=== PATIENT | male | born 1985 | race Caucasian/White ===

== ENCOUNTER 2019-06-21 06:07 | Emergency (ER) | payer OTHER, MEDICAID, SELFPAY ==
[2019-06-21 06:15] VITALS: BP 140/82; PULSE 95; RESP 16; TEMP 36.6; O2SAT 98; BMI 37.6
--- NOTE | 2019-06-21 06:35 | ED_ITS ---
HPI - Extremity Injury (Lower) General Chief Complaint: Extremity Injury, Lower Stated Complaint: ear inf cut left leg left ankle Time Seen by Provider: 06/21/19 06:10 Source: patient Mode of arrival: Ambulatory Limitations: no limitations History of Present Illness HPI Narrative: 34-year-old smoker with former substance abuse history presents with his girlfriend with a chief complaint of some pain and swelling of a laceration on his left anterior garcia. He was seen and evaluated at another facility about 1 week ago and had a deep laceration which was very appropriately cleaned and had a multilayer closure, patient was also placed on Keflex which he has been taking. His initial injury was using a weed whacker which jumped up and lacerated his garcia in a deep, irregular wound. He states that a few days ago started becoming a bit red and puffy and draining some clear yellowish fluid. He denies any systemic symptoms such as fever, chills nor nausea or vomiting. Additionally he states that he feels something bouncing around his right ear which is irritating him. He denies any drainage MD complaint: leg injury Onset (ago): day(s) Type of Injury: laceration Place: street/outdoors Severity: moderate Relieving factors: rest Exacerbating factors: movement and palpation Context: direct blow Other symptoms: none Related Data Previous Rx's Medication Instructions Recorded doxycycline hyclate 100 mg PO BID #20 tab 06/21/19 ondansetron 4 mg PO TID-QID PRN #10 tab 06/21/19 Review of Systems Constitutional Constitutional: Denies chills, Denies fatigue, Denies fever(s), Denies frequent falls, Denies lethargy and Denies weakness Eyes Eyes: Denies change in vision, Denies eye discharge, Denies irritation and Denies loss of vision ENT Ears, Nose, Mouth, and Throat: Denies change in voice, Denies dizziness, Denies neck pain, Denies sore throat and Denies throat swelling Comments: FB sensation in R EAC Cardiovascular Cardiovascular: Denies chest pain, Denies irregular heart rhythm, Denies lightheadedness, Denies palpitations, Denies dyspnea, Denies dyspnea on exertion and Denies orthopnea Respiratory Respiratory: Denies cough, Denies dyspnea, Denies dyspnea on exertion and Denies wheezing Gastrointestinal Gastrointestinal: Denies abdominal pain, Denies change in bowel habits, Denies diarrhea, Denies nausea and Denies vomiting Genitourinary Genitourinary: Denies hematuria, Denies flank pain, Denies urinary incontinence and Denies urinary urgency Musculoskeletal Musculoskeletal: Denies back pain, Denies muscle weakness, Denies neck pain, Denies numbness and Denies tingling Integumentary/Breasts Skin/Breast: Denies pruritus, Denies erythema, Denies rash and Denies wounds Neurologic Neurologic: Denies behavioral changes, Denies confusion, Denies dizziness, Denies frequent falls, Denies loss of vision, Denies numbness, Denies tingling and Denies weakness Psychiatric Psychiatric: Denies anxiety, Denies behavioral changes, Denies confusion, Denies depression, Denies homicidal ideation and Denies suicidal ideation Endocrine Endocrine: Denies fatigue, Denies flushing and Denies palpitations Hematologic/Lymphatic Hematologic/Lymphatic: Denies easy bruising Allergic/Immunologic Allergic/Immunologic: Denies urticaria, Denies throat swelling and Denies wheezing Patient History Social History Smoking Status: Current every day smoker Smoking Status: Current every day smoker Substance Use Type: does not use Exam Narrative Exam Narrative: GENERAL: [34] year old patient appears stated age. Well- nourished, well-developed patient, in mild distress. HEAD: Atraumatic. Normocephalic. EYES: Pupils equal round and reactive. Extraocular motions intact. No scleral icterus. No injection or drainage. ENT: Nose without bleeding, purulent drainage. Throat without erythema, tonsillar hypertrophy or exudate. Airway patent. Very small rock in right external auditory canal, no erythema, laceration. TM is intact without bulging, erythema or loss of landmarks NECK: Trachea midline. Non tender CARDIOVASCULAR: Regular rate and rhythm without murmurs, gallops, or rubs. RESPIRATORY: Clear to auscultation. Breath sounds equal bilaterally. No wheezes, rales, or rhonchi. GASTROINTESTINAL: Abdomen soft, non-tender, nondistended. EXTREMITIES: No edema or joint tenderness. BACK: Nontender without deformity or crepitance. No flank tenderness. NEURO: AOx3. SKIN: Laceration on anterior left garcia shows a small area of dehiscence with some drainage and mild surrounding erythema. A wound culture is obtained and sent. Otherwise no rash or erythema of visible areas Course Orders Ordered: ED Orders 06/21/19 06:30 Wound Culture and Gram Stain Stat Discharge Plan Departure Patient Disposition: Home Clinical Impression: Infected laceration of skin Instructions: DI for Wound Infection Activity Restrictions/Additional Instructions: *You have been diagnosed with [infected laceration of left lower leg. Small foreign body removed from right external auditory canal] *What to do: *Take medications as directed: You may consider some [id number] probiotics *Follow up with your primary care provider in 2-3 days, call for an appointment. Let them know you were seen in the Emergency Department and that we ask that you be seen in follow up *Return to ER if you should have any new, worsening or concerning symptoms Prescriptions: New doxycycline hyclate 100 mg tablet 100 mg PO BID Qty: 20 RF: 0 ondansetron 4 mg tablet,disintegrating 4 mg PO TID-QID PRN (Reason: nausea and vomiting) Qty: 10 RF: 0
[2019-06-21 07:03] VITALS: BP 152/83; PULSE 77; RESP 16; O2SAT 96
== END 2019-06-21 07:04 | disposition home or self-care (01) ==
PROVIDERS: Emergency Provider Emergency Medicine; PCP Physician Assistant Medical
DX: L08.9 Local infection of the skin and subcutaneous tissue, unspecified (principal)
CPT/HCPCS: 87070; 87077; 87147; 87185; 87186; 87205; 99281; 99282

== ENCOUNTER 2019-06-22 15:48 | Emergency (ER) | payer OTHER, SELFPAY ==
[2019-06-22 15:59] VITALS: BP 149/90; PULSE 90; RESP 20; TEMP 36.4; O2SAT 98; BMI 38.3
--- NOTE | 2019-06-22 16:01 | PC.NURSE ---
pt has laceration from a saw blade he had on a weed eater. pt had stitches placed at [facility] on 06/10/19. seen here a few days ago for a few stitches that came out. back today due to pain through the night. site does not appear to be healing well. redness and swelling noted, small amount of drainage from incision site, painful to touch. pt reports he did take a course of antibiotics.
[2019-06-22 17:06] LABS: Add Manual Diff / Slide Review NO; Basophils Absolute Auto 100 /uL (0-100); Basophils Percent Auto 0.9 % (0-2); Eosinophils Absolute Auto 300 /uL (0-450); Eosinophils Percent Auto 2.5 % (2-4); Hematocrit 40.5 % (41-53); Hemoglobin 14.2 g/dL (13.5-17.5); Lymphocytes Absolute Auto 2300 /uL (1100-4500); Lymphocytes Percent Auto 21.9 % (25-40); Mean Corpuscular HGB Conc 35.1 % (30-36); Mean Corpuscular Hemoglobin 31.1 PG (26-34); Mean Corpuscular Volume 88.6 fL (80-100); Monocytes Absolute Auto 600 /uL (0-900); Monocytes Percent Auto 6.1 % (3-14); Neutrophils Absolute Auto 7300 /uL (1500-7000); Neutrophils Percent Auto 68.6 % (50-75); Platelet Count 311 X10^3/uL (150-400); Red Blood Cell Count 4.57 X10^6/uL (4.5-5.9); White Blood Cell Count 10.7 X10^3/uL (4.5-11.0)
[2019-06-22 17:18] LABS: Lactate (Lactic Acid) 1.3 mmol/L (0.7-2.1)
[2019-06-22 17:21] LABS: Alanine Aminotransferase 40 IU/L (<50); Albumin 4.5 g/dL (3.5-5.0); Albumin Globulin Ratio 1.3 (1.0-2.8); Alkaline Phosphatase 111 U/L (38-126); Aspartate Aminotransferase 33 IU/L (17-59); BUN Creatinine Ratio 17.4 (6-22); Bilirubin Total 0.4 mg/dL (0.2-1.3); Blood Urea Nitrogen 15 mg/dL (9-20); C-Reactive Protein Quant 3.1 mg/dL (<1.0); Calcium 9.1 mg/dL (8.4-10.2); Carbon Dioxide 24 mmol/L (22-32); Chloride 105 mmol/L (98-107); Estimated Glomerular Filt Rate > 60.0 mL/min (>60); Globulin 3.4 g/dL (1.7-4.1); Glucose 126 mg/dL (70-100); HEMOLYSIS 25 (0-50); Potassium 4.1 mmol/L (3.4-5.1); Sodium 139 mmol/L (137-145); Total Protein 7.9 g/dL (6.3-8.2)
[2019-06-22] MEDS: MORPHINE 4 MG/ML INJ IV (17:26)
[2019-06-22] MEDS: ONDANSETRON 4 MG/2 ML INJ IV ×2 (17:26→18:27)
[2019-06-22 17:33] LABS: Procalcitonin < 0.05 ng/mL (<0.5)
[2019-06-22 17:49] LABS: Erythrocyte Sedimentation Rate 27 MM/HR (0-15)
[2019-06-22] MEDS: KETOROLAC 60 MG/2 ML VIAL 30 MG IV (18:27)
[2019-06-22 19:21] VITALS: BP 129/78; PULSE 65; RESP 17; O2SAT 98
--- NOTE | 2019-06-22 20:21 | DI.RAD.S_ITS ---
PROCEDURE: XR TIBIA FIBULA RT 2V INDICATIONS: mid garcia injury 06/13, R/o fracture or osteomyelitis TECHNIQUE: 2 views of the tibia and fibula were acquired. COMPARISON: [facility], , XR FOOT 3+ VIEWS LEFT, 01/01/2019, 14:27. FINDINGS: Bones: Comminuted fracture to the anterior mid tibial shaft deep to the skin laceration. No dislocations. No suspicious bony lesions. Distal fibular shaft ORIF. No periscrew lucency or plate lift off. Spur at the inferior medial tibial plateau. Soft tissues: No suspicious soft tissue calcifications or masses. No obvious radiopaque foreign body. IMPRESSION: Comminuted fracture of the anterior mid tibial shaft deep to the skin laceration. No radiopaque foreign body identified. Dictated by: Jose Alfredo Scanlon M.D. on 06/22/2019 at 20:45 Approved by: Jose Alfredo Scanlon M.D. on 06/22/2019 at 20:47
--- NOTE | 2019-06-22 21:10 | ED.SKABFB ---
HPI - Skin/Abscess/Foreign Bdy <JIGNA Manuel - Last Filed: 06/22/19 23:34> General Chief complaint: Skin/Abscess/Foreign Body Stated complaint: left leg injury, ripped stitches out, wound drains Time Seen by Provider: 06/22/19 15:54 Source: patient Mode of arrival: Ambulatory Limitations: no limitations History of Present Illness HPI narrative: This is a 34-year-old male, former smoker and substance abuse history, presents to ED with significant other increasing pain and swelling of a laceration on his left anterior garcia. Reports he had a deep laceration from a tree branch on 06/14/2019 (T-8 days) when he was trimmimg yard with an weed ankur with a blade attachment and tree branch jumped up and lacerated his leg. He was evaluated at [facility] ER and treated with irrigation and had multilayer closure. 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 Patient reports pain and swelling is slightly increased with improving redness surrounding the laceration. Patient reports he has nausea, feeling dizzy, and having night sweats. Patient denies chills or fevers. Patient noticed light yellowish drainage from affected site and sutures are pulling the skin due to swelling. Patient has not been changing the dressing and taking care wound at home due to pain according to his significant other. Patient reports pain is 8/10 as stabbing, aching, pulsating. Patient also complains of right flank pain and stating my kidney is hurting. Patient has an appointment with his primary care physician Dr. Rodríguez next a couple of days. Related Data Home Medications Medication Instructions Recorded Confirmed bupropion HCl mg PO 06/22/19 diclofenac sodium PO 06/22/19 trazodone 06/22/19 Previous Rx's Medication Instructions Recorded doxycycline hyclate 100 mg PO BID #20 tab 06/21/19 ondansetron 4 mg PO TID-QID PRN #10 tab 06/21/19 Allergies Allergy/AdvReac Type Severity Reaction Status Date / Time No Known Drug Allergies Allergy Verified 06/22/19 17:26 Review of Systems <JIGNA Manuel - Last Filed: 06/22/19 23:34> Review of Systems Narrative: General: Denies fever, chills, fatigue, malaise, (+) sweats. HEENT: Denies sinus pain, ear pain, sore throat, difficulty swallowing, (+) dizziness. Respiratory: Denies dyspnea, cough, wheezing, hemoptysis, sputum. Cardiovascular: Denies chest pain, palpitations, orthopnea, edema. Gastrointestinal: Denies (+) nausea, vomiting, abdominal pain, diarrhea, constipation, melena. : Denies dysuria, frequency, incontinence, hematuria, urinary retention. Musculoskeletal: See HPI Skin: see HPI Neurologic: Denies weakness, headache, numbness, change in speech, confusion, seizures, incoordination. Psychiatric: No concerning psychosocial issues. 12-point review of systems is negative except for those stated above. Patient History <JIGNA Manuel - Last Filed: 06/22/19 23:34> Medical History Arthritis (Acute) Leg fracture, left (Acute) Social History Smoking Status: Current every day smoker Smoking Status: Current every day smoker Substance Use Type: does not use Exam <JIGNA Manuel - Last Filed: 06/22/19 23:34> Narrative Exam Narrative: General appearance: well developed, well nourished, in no acute distress. Head: normocephalic, atraumatic, no scalp lesions, non-tender. ENT: Hearing grossly intact. Nose without bleeding, purulent discharge. Mucous membrane moist, no mucosal lesion. Throat without erythema, tonsillar hypertrophy or exudate. Uvula in midline, airway patent. Neck/Thyroid: neck supple, full range of motion, no visible masses or meningeal signs. No JVD, non-tender without lymphadenopathy. Skin: Laceration on the anterior left garcia shows small light yellow prulent discharge and mild surrounding erythema, warmth, edema with small area with fluctuance. Very Tender to gentle palpation. Heart: no clubbing, no cyanosis, no edema. S1 and S2 normal. RRR w/o murmurs, clicks, or bruits. Lungs: Breathing even and unlabored. No stridor. No accessory muscles used. Able to speak in full sentences. Chest: normal shape and expansion. Abdomen: non-obese, non-distended. Neurologic: alert and oriented. Cognitive exam, OFFAL ICER POULTRY and PNS grossly intact on informal exam. Psych: good eye contact, normal affect. Initial Vital Signs Initial Vital Signs: Vital Signs Temperature 97.5 F L 06/22/19 15:59 Pulse Rate 90 06/22/19 15:59 Respiratory Rate 06/22/19 15:59 Blood Pressure 149/90 H 06/22/19 15:59 Pulse Oximetry 98 06/22/19 15:59 <Humberto Harris DO - Last Filed: 06/23/19 04:42> Initial Vital Signs Initial Vital Signs: Vital Signs Temperature 97.5 F L 06/22/19 15:59 Pulse Rate 90 06/22/19 15:59 Respiratory Rate 06/22/19 15:59 Blood Pressure 149/90 H 06/22/19 15:59 Pulse Oximetry 98 06/22/19 15:59 Scores <JIGNA Manuel - Last Filed: 06/22/19 23:34> ABCD2 Citation: Not meeting SIRCS criteria. Course <JIGNA Manuel - Last Filed: 06/22/19 23:34> Orders Ordered: ED Orders 06/22/19 20:21 XR tibia fibula LT 2V Stat Discontinued Medications Bacitracin (Bacitracin) 1 applic TOP NOW ONE Stop: 06/22/19 21:12 Ketorolac Tromethamine (Toradol) 30 mg IV NOW ONE Stop: 06/22/19 18:19 Last Admin: 06/22/19 18:27 Dose: 30 mg Documented by: SHAUN Morphine Sulfate (Morphine) 4 mg IV NOW ONE Stop: 06/22/19 16:49 Last Admin: 06/22/19 17:26 Dose: 4 mg Documented by: SHAUN Ondansetron HCl (Zofran) 4 mg IV NOW ONE Stop: 06/22/19 16:49 Last Admin: 06/22/19 17:26 Dose: 4 mg Documented by: SHAUN Ondansetron HCl (Zofran) 4 mg IV NOW ONE Stop: 06/22/19 18:19 Last Admin: 06/22/19 18:27 Dose: 4 mg Documented by: SCANAPO Vital Signs Vital signs: Vital Signs - 8 hr 06/22/19 15:59 06/22/19 19:21 Temperature 97.5 F L Pulse Rate 90 65 Respiratory Rate 20 17 Blood Pressure 149/90 H Blood Pressure [Right Arm] 129/78 Pulse Oximetry 98 98 <Humberto Harris DO - Last Filed: 06/23/19 04:42> Orders Ordered: ED Orders 06/22/19 20:21 XR tibia fibula LT 2V Stat Discontinued Medications Bacitracin (Bacitracin) 1 applic TOP NOW ONE Stop: 06/22/19 21:12 Ketorolac Tromethamine (Toradol) 30 mg IV NOW ONE Stop: 06/22/19 18:19 Last Admin: 06/22/19 18:27 Dose: 30 mg Documented by: ADRIANAO Morphine Sulfate (Morphine) 4 mg IV NOW ONE Stop: 06/22/19 16:49 Last Admin: 06/22/19 17:26 Dose: 4 mg Documented by: SCANAPO Ondansetron HCl (Zofran) 4 mg IV NOW ONE Stop: 06/22/19 16:49 Last Admin: 06/22/19 17:26 Dose: 4 mg Documented by: SCANAPO Ondansetron HCl (Zofran) 4 mg IV NOW ONE Stop: 06/22/19 18:19 Last Admin: 06/22/19 18:27 Dose: 4 mg Documented by: SCANAPO Vital Signs Vital signs: Vital Signs - 8 hr 06/22/19 15:59 06/22/19 19:21 Temperature 97.5 F L Pulse Rate 90 65 Respiratory Rate 20 17 Blood Pressure 149/90 H Blood Pressure [Right Arm] 129/78 Pulse Oximetry 98 98 MDM - Skin/Abscess/Foreign Bdy <JIGNA Manuel - Last Filed: 06/22/19 23:34> Differential Diagnosis Differential diagnosis: Likely abscess of skin or subcutaneous tissue, cellulitis and other (Osteomyelitis) Medical Records Attestation: I reviewed the patient's medical records. Lab Data Attestation: I reviewed the patient's lab results. Result diagrams: 06/22/19 16:55 06/22/19 16:55 Labs: Lab Results 06/22/19 06/22/19 06/22/19 Range/Units 16:55 16:55 16:55 WBC 10.7 (4.5-11.0) X10^3/uL RBC 4.57 (4.5-5.9) X10^6/uL Hgb 14.2 (13.5-17.5) g/dL Hct 40.5 L (41-53) % MCV 88.6 (80-100) fL MCH 31.1 (26-34) PG MCHC 35.1 (30-36) % RDW 13.0 (11.6-14.8) % Plt Count 311 (150-400) X10^3/uL Neut % (Auto) 68.6 (50-75) % Lymph % (Auto) 21.9 L (25-40) % Ferry % (Auto) 6.1 (3-14) % Eos % (Auto) 2.5 (2-4) % Baso % (Auto) 0.9 (0-2) % Neut # (Auto) 7300 H (6880-5747) /uL Lymph # (Auto) 2300 (4941-8252) /uL Ferry # (Auto) 600 (0-900) /uL Eos # (Auto) 300 (0-450) /uL Baso # (Auto) 100 (0-100) /uL ESR 27 H (0-15) MM/HR Sodium 139 (137-145) mmol/L Potassium 4.1 (3.4-5.1) mmol/L Chloride 105 (98-107) mmol/L Carbon Dioxide 24 (22-32) mmol/L BUN 15 (9-20) mg/dL Creatinine 0.86 (0.66-1.25) mg/dL Estimated GFR > 60.0 (>60) mL/min BUN/Creatinine Ratio 17.4 (6-22) Glucose 126 H (70-100) mg/dL Lactate (0.7-2.1) mmol/L Calcium 9.1 (8.4-10.2) mg/dL Total Bilirubin 0.4 (0.2-1.3) mg/dL AST 33 (17-59) IU/L ALT 40 (<50) IU/L Alkaline Phosphatase 111 (38-126) U/L C-Reactive Protein 3.1 H (<1.0) mg/dL Total Protein 7.9 (6.3-8.2) g/dL Albumin 4.5 (3.5-5.0) g/dL Globulin 3.4 (1.7-4.1) g/dL Albumin/Globulin Ratio 1.3 (1.0-2.8) Procalcitonin < 0.05 (<0.5) ng/mL 06/22/19 Range/Units 16:55 WBC (4.5-11.0) X10^3/uL RBC (4.5-5.9) X10^6/uL Hgb (13.5-17.5) g/dL Hct (41-53) % MCV (80-100) fL MCH (26-34) PG MCHC (30-36) % RDW (11.6-14.8) % Plt Count (150-400) X10^3/uL Neut % (Auto) (50-75) % Lymph % (Auto) (25-40) % Ferry % (Auto) (3-14) % Eos % (Auto) (2-4) % Baso % (Auto) (0-2) % Neut # (Auto) (9050-7893) /uL Lymph # (Auto) (1407-5019) /uL Ferry # (Auto) (0-900) /uL Eos # (Auto) (0-450) /uL Baso # (Auto) (0-100) /uL ESR (0-15) MM/HR Sodium (137-145) mmol/L Potassium (3.4-5.1) mmol/L Chloride (98-107) mmol/L Carbon Dioxide (22-32) mmol/L BUN (9-20) mg/dL Creatinine (0.66-1.25) mg/dL Estimated GFR (>60) mL/min BUN/Creatinine Ratio (6-22) Glucose (70-100) mg/dL Lactate 1.3 (0.7-2.1) mmol/L Calcium (8.4-10.2) mg/dL Total Bilirubin (0.2-1.3) mg/dL AST (17-59) IU/L ALT (<50) IU/L Alkaline Phosphatase (38-126) U/L C-Reactive Protein (<1.0) mg/dL Total Protein (6.3-8.2) g/dL Albumin (3.5-5.0) g/dL Globulin (1.7-4.1) g/dL Albumin/Globulin Ratio (1.0-2.8) Procalcitonin (<0.5) ng/mL Urine Dip Bedside Urine Glucose Negative Bedside Urine Bilirubin - Negative Bedside Urine Ketone - Negative Urine Specific [place] 1.030 Bedside Urine Occult Blood - Negative Bedside Urine pH 5.5 Bedside Urine Protein - Negative Bedside Urine Urobilinogen - Negative Bedside Urine Nitrite - Negative Bedside Urine Leukocytes - Negative Esterase Imaging Data XR-Tib/fib LT: Radiologist's Impression: PROCEDURE: XR TIBIA FIBULA RT 2V INDICATIONS: mid garcia injury 06/13, R/o fracture or osteomyelitis TECHNIQUE: 2 views of the tibia and fibula were acquired. COMPARISON: [facility], CR, XR FOOT 3+ VIEWS LEFT, 01/01/2019, 14:27. FINDINGS: Bones: Comminuted fracture to the anterior mid tibial shaft deep to the skin laceration. No dislocations. No suspicious bony lesions. Distal fibular shaft ORIF. No periscrew lucency or plate lift off. Spur at the inferior medial tibial plateau. Soft tissues: No suspicious soft tissue calcifications or masses. No obvious radiopaque foreign body. IMPRESSION: Comminuted fracture of the anterior mid tibial shaft deep to the skin laceration. No radiopaque foreign body identified. Dictated by: Jose Alfredo Scanlon M.D. on 06/22/2019 at 20:45 Approved by: Jose Alfredo Scanlon M.D. on 06/22/2019 at 20:47 [facility] Narrative Medical decision making narrative: A 34-year-old male who presents to ED with the 2nd time in 2 days for evaluation infected laceration on left anterior garcia. Patient was evaluated and treated with multi-layers laceration repair with sutures on 06/14/19 at [facility]. Keflex after the initial treatment and this has been changed to doxycycline yesterday and he had so far 2 doses of 7 day course. Patient reports pain, swelling has been increasing but improved redness around the surrounding laceration. Patient noticed light yellow drainage from affected side and his concerned for sutures or pulling the edges of skin. Considered sepsis and abscess and lab tests were obtained. No leukocytosis, negative for lactate, procalcitonin. CRP and ESR were mildly elevated to 3.1 and 27. Sutures (running) were removed to anticipate drainage. However, there was very scant amount of fluid without thick purulent discharge expressed. Wound has been cleaned with Hibiclens and water. Patient's wound was re-evaluated by Dr. Harris who initially evaluated the patient yesterday morning for a comparison, appreciated decreased redness. The patient states he was told he had fracture on affected site on 06/14/2019 which the patient had not mentioned previously. Tib-fib x-ray was obtained and it shows comminuted fracture on the anterior mid tibia shaft deep to the skin laceration without dislocation. There is no loose metals on distal fibular shaft ORIF surgery from previous surgical intervention. No obvious radial plaque foreign body was appreciated. There is no suspicious bony lesions seen per x-ray. Findings were shared with the patient. Patient advised to continue with doxycycline for next 6 days b.i.d. course. Patient advised to keep the wound clean and dry with daily cleansing with soap and water and apply [id number] antibiotic ointment over steri-strips that has been applied during this visit to approximate the wound edges and accomodate the drainage. Return precautions were discussed with the patient and significant other and advised to follow-up with Dr. Rodríguez as scheduled in next couple of days for wound recheck. Wound culture from 06/21/19 is pending. Patient and significant other verbalized understanding in agreement with the treatment plan. <Humberto Harris, DO - Last Filed: 06/23/19 04:42> Lab Data Labs: Lab Results 06/22/19 06/22/19 06/22/19 Range/Units 16:55 16:55 16:55 WBC 10.7 (4.5-11.0) X10^3/uL RBC 4.57 (4.5-5.9) X10^6/uL Hgb 14.2 (13.5-17.5) g/dL Hct 40.5 L (41-53) % MCV 88.6 (80-100) fL MCH 31.1 (26-34) PG MCHC 35.1 (30-36) % RDW 13.0 (11.6-14.8) % Plt Count 311 (150-400) X10^3/uL Neut % (Auto) 68.6 (50-75) % Lymph % (Auto) 21.9 L (25-40) % Ferry % (Auto) 6.1 (3-14) % Eos % (Auto) 2.5 (2-4) % Baso % (Auto) 0.9 (0-2) % Neut # (Auto) 7300 H (2541-9563) /uL Lymph # (Auto) 2300 (2698-3364) /uL Ferry # (Auto) 600 (0-900) /uL Eos # (Auto) 300 (0-450) /uL Baso # (Auto) 100 (0-100) /uL ESR 27 H (0-15) MM/HR Sodium 139 (137-145) mmol/L Potassium 4.1 (3.4-5.1) mmol/L Chloride 105 (98-107) mmol/L Carbon Dioxide 24 (22-32) mmol/L BUN 15 (9-20) mg/dL Creatinine 0.86 (0.66-1.25) mg/dL Estimated GFR > 60.0 (>60) mL/min BUN/Creatinine Ratio 17.4 (6-22) Glucose 126 H (70-100) mg/dL Lactate (0.7-2.1) mmol/L Calcium 9.1 (8.4-10.2) mg/dL Total Bilirubin 0.4 (0.2-1.3) mg/dL AST 33 (17-59) IU/L ALT 40 (<50) IU/L Alkaline Phosphatase 111 (38-126) U/L C-Reactive Protein 3.1 H (<1.0) mg/dL Total Protein 7.9 (6.3-8.2) g/dL Albumin 4.5 (3.5-5.0) g/dL Globulin 3.4 (1.7-4.1) g/dL Albumin/Globulin Ratio 1.3 (1.0-2.8) Procalcitonin < 0.05 (<0.5) ng/mL 06/22/19 Range/Units 16:55 WBC (4.5-11.0) X10^3/uL RBC (4.5-5.9) X10^6/uL Hgb (13.5-17.5) g/dL Hct (41-53) % MCV (80-100) fL MCH (26-34) PG MCHC (30-36) % RDW (11.6-14.8) % Plt Count (150-400) X10^3/uL Neut % (Auto) (50-75) % Lymph % (Auto) (25-40) % Ferry % (Auto) (3-14) % Eos % (Auto) (2-4) % Baso % (Auto) (0-2) % Neut # (Auto) (4725-8731) /uL Lymph # (Auto) (1228-7062) /uL Ferry # (Auto) (0-900) /uL Eos # (Auto) (0-450) /uL Baso # (Auto) (0-100) /uL ESR (0-15) MM/HR Sodium (137-145) mmol/L Potassium (3.4-5.1) mmol/L Chloride (98-107) mmol/L Carbon Dioxide (22-32) mmol/L BUN (9-20) mg/dL Creatinine (0.66-1.25) mg/dL Estimated GFR (>60) mL/min BUN/Creatinine Ratio (6-22) Glucose (70-100) mg/dL Lactate 1.3 (0.7-2.1) mmol/L Calcium (8.4-10.2) mg/dL Total Bilirubin (0.2-1.3) mg/dL AST (17-59) IU/L ALT (<50) IU/L Alkaline Phosphatase (38-126) U/L C-Reactive Protein (<1.0) mg/dL Total Protein (6.3-8.2) g/dL Albumin (3.5-5.0) g/dL Globulin (1.7-4.1) g/dL Albumin/Globulin Ratio (1.0-2.8) Procalcitonin (<0.5) ng/mL Urine Dip Bedside Urine Glucose Negative Bedside Urine Bilirubin - Negative Bedside Urine Ketone - Negative Urine Specific [place] 1.030 Bedside Urine Occult Blood - Negative Bedside Urine pH 5.5 Bedside Urine Protein - Negative Bedside Urine Urobilinogen - Negative Bedside Urine Nitrite - Negative Bedside Urine Leukocytes - Negative Esterase Discharge Plan Departure Patient Disposition: Home Clinical Impression: Infected laceration of skin Discharge Date/Time: 06/22/19 21:35 Instructions: DI for Cellulitis -- Adult Activity Restrictions/Additional Instructions: You have been diagnosed with [infected laceration of skin. (running) Sutures that have in placed in 06/14/19 at [facility] has been removed to drain possible purulent discharge. The sutures were not removed. X-ray test on tib-fib on affected leg continue to show communited triggers to the anterior mid tibial shaft deep to the skin laceration without suspicious bony lesions. Your previous surgery metals intact. There is no obvious radial plaque foreign body appreciated.]. What to do: *Take your medications as directed. Please continue with your current antibiotic medications. Please follow-up with your primary care physician if he needs additional antibiotic medication coverage. Keep affected area clean, dry and intact. After clean with soap and water, pat dry with clean paper towel and apply thin layer of [id number] antibiotic ointment cover the area to keep it clean. Elevate affected leg to decrease swelling. You do not have to be in bed rest but minimize walking excessively. *Follow up with your primary care provider in 2-3 days, follow-up as scheduled. Let them know you were seen in the ED and that we asked you to be seen in follow up. *Return to ED if you have any new, worsening, or concerning symptoms, such as [chest pain, breathing difficulty, unable to tolerate fluids, severe pain, fever, weakness/numbness/tingling on affected leg or any acute concerns]. Prescriptions: No Action doxycycline hyclate 100 mg tablet 100 mg PO BID Qty: 20 RF: 0 ondansetron 4 mg tablet,disintegrating 4 mg PO TID-QID PRN (Reason: nausea and vomiting) Qty: 10 RF: 0 bupropion HCl 150 mg tablet extended release 24 hr PO RF: 0 diclofenac sodium 75 mg tablet,delayed release (DR/EC) PO RF: 0 trazodone 50 mg tablet RF: 0 Referrals: Michael Rodríguez [Primary Care Provider] - <Humberto Harris DO - Last Filed: 06/23/19 04:42> Cosign ED Attending Cosjocleynature Attestation: I was immediately available in the department for consultation. This documentation has been reviewed and I agree with assessment and plan. Supervised by Humberto Harris DO
== END 2019-06-22 21:35 | disposition home or self-care (01) ==
PROVIDERS: Emergency Provider Nurse Practitioner Family; PCP Physician Assistant Medical
DX: L03.116 Cellulitis of left lower limb (principal)
CPT/HCPCS: 36415; 73590; 80053; 81003; 83605; 84145; 85025; 85651; 86140; 96374; 96375; 96376; 99284; J1885; J2270; J2405

== ENCOUNTER 2019-07-03 17:52 | Emergency (ER) | payer OTHER, MEDICAID, SELFPAY ==
[2019-07-03 17:59] VITALS: BP 142/81; PULSE 88; RESP 22; TEMP 36.6; O2SAT 99; BMI 37.6
[2019-07-03 18:10] VITALS: BP 139/83; PULSE 75; PULSE 78; RESP 14; O2SAT 98
--- NOTE | 2019-07-03 18:16 | DI.RAD.S_ITS ---
PROCEDURE: XR KNEE RT 3V INDICATIONS: R knee pain, feels unstable TECHNIQUE: 3 views of the knee were acquired. COMPARISON: None. FINDINGS: Bones: No fractures or dislocations. Mild degenerative marginal spur formation. No suspicious bony lesions. Soft tissues: No joint effusion. No suspicious soft tissue calcifications. IMPRESSION: Intact right knee with mild degenerative changes. Dictated by: Allyssa Berger M.D. on 07/03/2019 at 18:47 Approved by: Allyssa Berger M.D. on 07/03/2019 at 18:49
[2019-07-03] MEDS: ACETAMINOPHEN 325 MG TABLET 975 MG PO (18:25)
--- NOTE | 2019-07-03 18:43 | ED_ITS ---
HPI - Extremity Injury (Lower) <JIGNA Manuel - Last Filed: 07/03/19 22:36> General Chief Complaint: Extremity Injury, Lower Stated Complaint: Stitches In LT Leg, Buried In Skin, RT knee Gave o Time Seen by Provider: 07/03/19 17:55 Source: patient Mode of arrival: Ambulatory Limitations: no limitations History of Present Illness HPI Narrative: This is a 34 year male, smoker, who has history of depression and arthritis with recent deep laceration to left garcia with comminuted fracture to the anterior mid tibia shaft deep to the skin laceration presents to ED with recurring left garcia pain after he bumped into a ladder during work and right knee pain with feeling instability with a stepping down motion. Patient denies trauma to right knee but when he works he goes up and down the ladder frequently. Patient reports he had finished doxycycline for 10 day course 2 days ago. Patient had multiple layers of sutures to repair left garcia laceration but superficial layer of sutures has been removed during last visit on 06/22/2019 due to infected laceration. Patient denies fever, chills, nausea or vomiting. Patient agrees the redness around the wound has improved since last visit. Patient denies calf pain, redness or swelling to left leg. He has been walking a lot since he had return to work. Patient rates right knee pain as 8 to 9/10. He takes daily diclofenac for existing arthritis at least a couple of times a day and also he has taken additional Motrin today. Patient is requesting Toradol IM injection which has been declined since the patient has taken other form of NSAIDS with GI precautions. Patient states he had resolved diarrhea for 2 days recently. Related Data Home Medications Medication Instructions Recorded Confirmed bupropion HCl mg PO 06/22/19 diclofenac sodium PO 06/22/19 trazodone 06/22/19 Previous Rx's Medication Instructions Recorded doxycycline hyclate 100 mg PO BID #20 tab 06/21/19 ondansetron 4 mg PO TID-QID PRN #10 tab 06/21/19 diclofenac sodium 2 gram TOP QID PRN #100 gram 07/03/19 Allergies Allergy/AdvReac Type Severity Reaction Status Date / Time No Known Drug Allergies Allergy Verified 06/22/19 17:26 Review of Systems <JIGNA Manuel - Last Filed: 07/03/19 22:36> Review of Systems Narrative: General: Denies fever, chills, fatigue, malaise, sweats. HEENT: Denies sinus pain, ear pain, sore throat, difficulty swallowing, dizziness. Respiratory: Denies dyspnea, cough, wheezing, hemoptysis, sputum. Cardiovascular: Denies chest pain, palpitations, orthopnea, edema. Gastrointestinal: Denies nausea, vomiting, abdominal pain, diarrhea, constipation, melena. : Denies dysuria, frequency, incontinence, hematuria, urinary retention. Musculoskeletal: See HPI Skin: Denies rash, skin lesions, or other. Neurologic: Denies weakness, headache, numbness, change in speech, confusion, seizures, incoordination. Psychiatric: No concerning psychosocial issues. 12-point review of systems is negative except for those stated above. Patient History <JIGNA Manuel - Last Filed: 07/03/19 22:36> Social History Smoking Status: Current every day smoker Smoking Status: Current every day smoker alcohol intake frequency: holidays/special occasions only Substance Use Type: does not use Exam <JIGNA Manuel - Last Filed: 07/03/19 22:36> Narrative Exam Narrative: GEN: Alert, oriented x 3, well appearing and nourished, and in no acute distress. Head: Normal cephalic, atraumatic. No scalp or temporal tenderness, palpable mass or rash. EYES: Pupils are equal, round, and reactive to light and accommodation. Extraocular muscles are intact bilaterally. There is no subconjunctival hemorrhage, exudate and sclera non-icteric. ENT: Hearing grossly intact. Nose without bleeding, purulent discharge. Mucous membrane moist, no mucosal lesion. Throat without erythema, tonsillar hypertrophy or exudate. Uvula in midline, airway patent. Neck: Trachea in midline. No JVD, non-tender without lymphadenopathy. No masses or thyroid megaly. Supple, non-tender and no meningeal signs. CARDIAC: Normal regular rate and rhythm without murmurs, gallops, or rubs. No chest wall tenderness. No peripheral edema, cyanosis or pallor. Capillary refill is less than 2 seconds. RESPIRATORY: Lungs are clear to auscultate bilaterally. No cough, wheezes, rales, or rhonchi. No stridor, respiratory distress, increase work of breathing, or accessary muscle used. ABD: Abdomen soft, nontender and non-distended. No guarding or rebound tenderness to palpate. Bowel sounds are normal in all 4 quadrants. There is no palpable masses or organomegaly. SKIN: Left garcia wound edges are not approximating well with gap but no purulent discharge appreciated. Wound edges with mild erythema and warmth. No purulent drainage but scant amount of serous drainage. BACK: Nontender without deformity or crepitance. No flank tenderness. NEUROLOGICAL: Alert and oriented to place, time and person. Sensation and motor function intact bilaterally. No facial droops, dysphasia. PSYCHIATRIC: Good judgement and reason, without hallucinations, abnormal affect or abnormal behaviors during the examination. Patient is not suicidal. Initial Vital Signs Initial Vital Signs: Vital Signs Temperature 97.9 F 07/03/19 17:59 Pulse Rate 88 07/03/19 17:59 Respiratory Rate 22 07/03/19 17:59 Blood Pressure 142/81 H 07/03/19 17:59 Pulse Oximetry 99 07/03/19 17:59 Extrem Right lower extremity: normal to inspection, full ROM, knee Details: normal to inspection, tenderness (Around patella), abnormal ROM Details: pain with active ROM during Details: in extension and in flexion and pain with passive ROM during Details: in extension and in flexion and other (Clicking with flexion and extension); no swelling, no ecchymosis, no deformity and no unusual warmth and foot Details: normal capillary refill, normal to inspection, toes with normal ROM, vascular exam and motor-sensory exam Left lower extremity: lower leg Details: erythema (along the wound edges), tenderness and laceration (healing with inflammation) and foot Details: normal capillary refill, toes with normal ROM and no edema <Humberto Harris DO - Last Filed: 07/04/19 05:05> Initial Vital Signs Initial Vital Signs: Vital Signs Temperature 97.9 F 07/03/19 17:59 Pulse Rate 88 07/03/19 17:59 Respiratory Rate 22 07/03/19 17:59 Blood Pressure 142/81 H 07/03/19 17:59 Pulse Oximetry 99 07/03/19 17:59 Procedures <JIGNA Manuel - Last Filed: 07/03/19 22:36> Orthopedic Splinting/Casting Injury #1: Side: right Lower Extremity Injury Location: knee Lower Extremity Immobilizer: Andrea wrap Post splinting neuro exam: intact Post splinting vascular exam: intact Placed by: Nursing Scores <[facility] Last Filed: 07/03/19 22:36> GCS [place] coma scale eye opening: Spontaneous [place] coma scale verbal response: Orientated [place] coma scale motor response: Obey commands [place] coma scale total score: 15 Course <[facility] Last Filed: 07/03/19 22:36> Orders Ordered: Discontinued Medications Acetaminophen (Tylenol) 975 mg PO NOW ONE Stop: 07/03/19 18:20 Last Admin: 07/03/19 18:25 Dose: 975 mg Documented by: KALYN Pelayoitracin (Bacitracin) 1 applic TOP NOW ONE Stop: 07/03/19 19:19 Vital Signs Vital signs: Vital Signs - 8 hr 07/03/19 17:59 07/03/19 18:10 Temperature 97.9 F Pulse Rate 88 75 Pulse Rate [Bilateral Dorsalis Pedis] 78 Respiratory Rate 22 14 Blood Pressure 142/81 H Blood Pressure [Left Arm] 139/83 Pulse Oximetry 99 98 <Humberto Harris DO - Last Filed: 07/04/19 05:05> Orders Ordered: Discontinued Medications Acetaminophen (Tylenol) 975 mg PO NOW ONE Stop: 07/03/19 18:20 Last Admin: 07/03/19 18:25 Dose: 975 mg Documented by: KALYN Pelayoitracin (Bacitracin) 1 applic TOP NOW ONE Stop: 07/03/19 19:19 Vital Signs Vital signs: Vital Signs - 8 hr 07/03/19 17:59 07/03/19 18:10 Temperature 97.9 F Pulse Rate 88 75 Pulse Rate [Bilateral Dorsalis Pedis] 78 Respiratory Rate 22 14 Blood Pressure 142/81 H Blood Pressure [Left Arm] 139/83 Pulse Oximetry 99 98 MDM - Extremity Injury (Lower) <Vitor MontesJOSE MARIA YorkP - Last Filed: 07/03/19 22:36> Differential Diagnosis Differential diagnosis: Likely other (knee pain, knee fracture, knee effusion, delayed healing laceration, infection) Medical Records Attestation: I reviewed the patient's medical records. Imaging Data XR-Knee RT: Radiologist's Impression: [address] [address] XRay Report Signed Patient: Keshav Cortes [facility]#: [id number] : 1985Acct:[id number] Age/Sex: 34 / MDate of Service: 07/03/19 Loc: ED Accession Number: [id number] Procedure: XR knee RT 3V Ordering Provider: Vitor Hudson PROCEDURE: XR KNEE RT 3V INDICATIONS: R knee pain, feels unstable TECHNIQUE: 3 views of the knee were acquired. COMPARISON: None. FINDINGS: Bones: No fractures or dislocations. Mild degenerative marginal spur formation. No suspicious bony lesions. Soft tissues: No joint effusion. No suspicious soft tissue calcifications. IMPRESSION: Intact right knee with mild degenerative changes. Dictated by: Allyssa Berger M.D. on 07/03/2019 at 18:47 Approved by: Allyssa Berger M.D. on 07/03/2019 at 18:49 [facility] Narrative Medical decision making narrative: This is a 34-year-old male with history of deep laceration and comminuted fracture of the anterior mid tibia shaft deep to the skin laceration on 06/14/19 from a tree branch and weed whacker. He had finished 10 day course of doxycycline 2 days ago with partial Keflex antibiotic medication that was prescribed from other medical facility prior he was evaluated in [facility] ER. Physical exam is not consistent with acute infection but rather slight inflammation along the 2 edges of the wound which is not approximating well since the sutures were removed before the due date to treated infected laceration. I did evaluated this patient 12 days ago and seeing improvement on today's physical exam. Patient states he has not been taking care of the wound to keep clean, dry and intact and has not been covering the wound while at work. DVT was considered but patient denies any pain in calf, redness, warmth, or swelling. Patient informed his wound will be healing from inside and out gradually. Again signs and symptoms for infection or reviewed with the patient and significant other and wound was dressed with foam dressing and antibiotic ointment. Reinforced information to take care of wound daily. Right knee pain and subjective instability. No patella effusion or signs of infection. Patient denies trauma or injury. Patient was able to flex and extend affected knee with some discomfort and clicking. Distal sensation and pulse is intact. Patient has good strength on affected leg. X-ray test shows intact right knee with mild degenerative changes and mild degenerative marginal spur formation appreciated. Patient is currently taking diclofenac for arthritis. Additional diclofenac gel was ordered and advised to use only small amount and affected knee about 3 times a day as needed. Patient informed taking additional oral NSAIDS will could cause GI irritation and risk for GI bleed and advised to take Tylenol as needed. Andrea wrap has been applied to affected knee and offered crutches which patient declined. Patient advised follow-up [facility] orthopedist if his knee feels unstable. Return precautions were discussed with the patient and patient verbalized understanding and agreement with treatment plan. Discharge Plan Departure Patient Disposition: Home Clinical Impression: Knee pain Qualifiers: Chronicity: acute Laterality: right Qualified Code(s): M25.561 - Pain in right knee Laceration of left leg Qualifiers: Encounter type: subsequent encounter Qualified Code(s): S81.812D - Laceration without foreign body, left lower leg, subsequent encounter Discharge Date/Time: 07/03/19 19:41 Instructions: DI for Wound Dehiscence, DI for Knee Pain Activity Restrictions/Additional Instructions: You have been diagnosed with [healing infected wound on left garcia, right knee pain. Knee x-ray test does not show fractures or dislocation but mild degenerative marginal spur formation. Wound care has been done on left garcia. Please keep the area clean, dry and intact. Wash with soap and water daily and apply thin layer of antibiotic ointment cover Band-Aid or dressing. You can use Andrea wrap on right knee if this gives you support and helps with pain.]. What to do: *Take your medications as directed. You can use very small amount of Diclofenac gel up to 5 3 to 4 times a day as needed on right knee for pain. You can take 650-1000 mg Tylenol as needed up to 3 times a day. *Follow up with your primary care provider in 2-3 days, call for an appointment. Let them know you were seen in the ED and that we asked you to be seen in follow up. If your knee is unstable during ambulation, you may need to follow- up with orthopedist for an evaluation and further imaging test. *Return to ED if you have any new, worsening, or concerning symptoms, such as [chest pain, breathing difficulty, unable to tolerate fluids, calf pain/swelling/redness/warmth and worsening pain, or any acute concerns]. Prescriptions: New diclofenac sodium 1 % gel 2 gram TOP QID PRN (Reason: pain and inflammation) Qty: 100 RF: 0 No Action doxycycline hyclate 100 mg tablet 100 mg PO BID Qty: 20 RF: 0 ondansetron 4 mg tablet,disintegrating 4 mg PO TID-QID PRN (Reason: nausea and vomiting) Qty: 10 RF: 0 bupropion HCl 150 mg tablet extended release 24 hr PO RF: 0 diclofenac sodium 75 mg tablet,delayed release (DR/EC) PO RF: 0 trazodone 50 mg tablet RF: 0 Referrals: [facility] [Provider Group] Michael Rodríguez [Primary Care Provider] - <Humberto Harris DO - Last Filed: 07/04/19 05:05> Cosign ED Attending Joiature Attestation: I was immediately available in the department for consultation. This documentation has been reviewed and I agree with assessment and plan. Supervised by Humberto Harris DO
== END 2019-07-03 19:41 | disposition home or self-care (01) ==
PROVIDERS: Emergency Provider Nurse Practitioner Family; PCP Physician Assistant Medical
DX: S81.812D Laceration without foreign body, left lower leg, subsequent encounter (principal); M25.561 Pain in right knee
CPT/HCPCS: 73562; 99283; 99284

== ENCOUNTER 2019-09-05 19:38 | Emergency (ER) | payer OTHER, MEDICAID, SELFPAY ==
[2019-09-05] VITALS (11 sets, daily range): BP systolic 116–137; BP diastolic 60–82; PULSE 61–77; RESP 20; TEMP 36.2; O2SAT 97–100
--- NOTE | 2019-09-05 20:01 | DI.US.S_ITS ---
PROCEDURE: US PERIPH VENOUS LOW EXTREM RT INDICATIONS: RIGHT CALF PAIN TECHNIQUE: Real-time imaging, as well as color and pulse Doppler interrogation, were performed of the lower extremity deep veins from the inguinal ligament to the popliteal fossa. COMPARISON: None. FINDINGS: The common femoral, femoral and popliteal veins are normally compressible, and free of intraluminal thrombus. Color and pulse Doppler demonstrate normal phasic intraluminal flow. There is normal augmentation response to distal compression maneuver. Focus of echogenicity measuring 18 x 50 x 8 mm is present within the posterior calf. IMPRESSION: 1. No deep venous thrombosis. 2. Focus of echogenicity within the distal calf as above. This could represent a small fluid collection such as hematoma. Recommend clinical correlation to infection as abscess could not be definitively excluded if appropriate. Dictated by: Gavi Fitzgerald M.D. on 09/05/2019 at 21:04 Approved by: Gavi Fitzgerald M.D. on 09/05/2019 at 21:05
[2019-09-05] MEDS: KETOROLAC 60 MG/2 ML VIAL IM (21:14)
--- NOTE | 2019-09-05 21:17 | ED.LOWEXIN ---
HPI - Extremity Injury (Lower) General Chief Complaint: Extremity Injury, Lower Stated Complaint: RIGHT CALF MUSCLE PAIN SWELLING Time Seen by Provider: 09/05/19 19:40 Source: patient Mode of arrival: Wheelchair Limitations: no limitations History of Present Illness HPI Narrative: 34M smoker with non-contributory medical history presents with the chief complaint of left calf pain and swelling. He was lifting a heavy object earlier tonight when he felt a pop in his calf and then developed swelling. He denies any numbness, tingling or weakness. He denies any history of the same. He denies any fever, chills or redness. He denies any history of clot. His pain is worse when walking or pushing off and improves with rest. Related Data Home Medications Medication Instructions Recorded Confirmed bupropion HCl mg PO 06/22/19 diclofenac sodium PO 06/22/19 trazodone 06/22/19 Previous Rx's Medication Instructions Recorded doxycycline hyclate 100 mg PO BID #20 tab 06/21/19 ondansetron 4 mg PO TID-QID PRN #10 tab 06/21/19 diclofenac sodium 2 gram TOP QID PRN #100 gram 07/03/19 Allergies Allergy/AdvReac Type Severity Reaction Status Date / Time No Known Drug Allergies Allergy Verified 06/22/19 17:26 Review of Systems Constitutional Constitutional: Denies chills, Denies fatigue, Denies fever(s), Denies frequent falls, Denies lethargy and Denies weakness Eyes Eyes: Denies change in vision, Denies eye discharge, Denies irritation and Denies loss of vision ENT Ears, Nose, Mouth, and Throat: Denies change in voice, Denies dizziness, Denies neck pain, Denies sore throat and Denies throat swelling Cardiovascular Cardiovascular: Denies chest pain, Denies irregular heart rhythm, Denies lightheadedness, Denies palpitations, Denies dyspnea, Denies dyspnea on exertion and Denies orthopnea Respiratory Respiratory: Denies cough, Denies dyspnea, Denies dyspnea on exertion and Denies wheezing Gastrointestinal Gastrointestinal: Denies abdominal pain, Denies change in bowel habits, Denies diarrhea, Denies nausea and Denies vomiting Musculoskeletal Musculoskeletal: Reports abnormal gait, Denies neck pain, Denies numbness and Reports radiating pain into limb Integumentary/Breasts Skin/Breast: Denies pruritus, Denies erythema, Denies rash and Denies wounds Neurologic Neurologic: Reports abnormal gait, Denies behavioral changes, Denies confusion, Denies dizziness, Denies frequent falls, Denies loss of vision, Denies numbness and Denies weakness Psychiatric Psychiatric: Denies anxiety, Denies behavioral changes, Denies confusion, Denies depression, Denies homicidal ideation and Denies suicidal ideation Endocrine Endocrine: Denies fatigue, Denies flushing and Denies palpitations Hematologic/Lymphatic Hematologic/Lymphatic: Denies easy bruising Allergic/Immunologic Allergic/Immunologic: Denies urticaria, Denies throat swelling and Denies wheezing Patient History Medical History Arthritis (Acute) Leg fracture, left (Acute) Social History Smoking Status: Current every day smoker Smoking Status: Current every day smoker alcohol intake frequency: holidays/special occasions only Substance Use Type: does not use Exam Narrative Exam Narrative: GEN: 34-year-old male AOx3 and in mild distress EYES: Pupils are equal, round, and reactive to light and accommodation. Extraoccular muscles are intact bilaterally. There is no subconjunctival hemorrhage or exudate. CHEST: Lungs are clear to auscultation bilaterally and free of wheezes, rales, or rhonchi. Heart rate is regular rhythm, there are no murmurs, clicks, rubs, or gallops. There is no chest wall tenderness. ABD: Abdomen is soft and nontender. There is no guarding or rebound. Bowel sounds are normal in all 4 quadrants. There is no mass or organomegaly. EXT: Full painless ROM of all extremities with no loss of sensation or strength. Moderate swelling to left calf, no warmth or discoloration. Calf squeeze results in plantar flexion. SKIN: Warm, pink, and dry. No erythema or rash Initial Vital Signs Initial Vital Signs: Vital Signs Pulse Rate 74 09/05/19 19:48 Pulse Oximetry 100 09/05/19 19:48 Course Orders Ordered: ED Orders 09/05/19 20:01 periph venous low extrem rt Stat Discontinued Medications Ketorolac Tromethamine (Toradol) 60 mg IM NOW ONE Stop: 09/05/19 21:05 Last Admin: 09/05/19 21:14 Dose: 60 mg Documented by: RADHA Vital Signs Vital signs: Vital Signs - 8 hr 09/05/19 19:48 09/05/19 19:49 09/05/19 19:51 Temperature 97.1 F L Pulse Rate 74 75 77 Respiratory Rate 20 Blood Pressure 124/70 124/70 Pulse Oximetry 100 98 97 09/05/19 20:00 09/05/19 20:30 09/05/19 20:31 Temperature Pulse Rate 67 67 67 Respiratory Rate Blood Pressure 116/66 Pulse Oximetry 97 99 98 09/05/19 20:33 09/05/19 20:35 09/05/19 21:00 Temperature Pulse Rate 71 69 63 Respiratory Rate Blood Pressure 131/60 Pulse Oximetry 98 99 98 09/05/19 21:17 09/05/19 21:26 Temperature Pulse Rate 61 Respiratory Rate Blood Pressure 137/82 Pulse Oximetry 99 MDM - Extremity Injury (Lower) Imaging Data US - DVT: Radiologist's Impression: Keshav Cortes 34 M [address] [address] Ultrasound Report Signed Patient: Keshav Cortes [facility]#: [id number] : 1985Acct:[id number] Age/Sex: 34 / MDate of Service: 09/05/19 Loc: ED Accession Number: [id number] Procedure: US periph venous low extrem rt Ordering Provider: Humberto Harris D.O. PROCEDURE: US PERIPH VENOUS LOW EXTREM RT INDICATIONS: RIGHT CALF PAIN TECHNIQUE: Real-time imaging, as well as color and pulse Doppler interrogation, were performed of the lower extremity deep veins from the inguinal ligament to the popliteal fossa. COMPARISON: None. FINDINGS: The common femoral, femoral and popliteal veins are normally compressible, and free of intraluminal thrombus. Color and pulse Doppler demonstrate normal phasic intraluminal flow. There is normal augmentation response to distal compression maneuver. Focus of echogenicity measuring 18 x 50 x 8 mm is present within the posterior calf. IMPRESSION: 1. No deep venous thrombosis. 2. Focus of echogenicity within the distal calf as above. This could represent a small fluid collection such as hematoma. Recommend clinical correlation to infection as abscess could not be definitively excluded if appropriate. Dictated by: Gavi Fitzgerald M.D. on 09/05/2019 at 21:04 Approved by: Gavi Fitzgerald M.D. on 09/05/2019 at 21:05 [facility] Narrative Medical decision making narrative: DVT considered, but thought unlikely given sudden onset and normal US Hematoma considered most likely given onset during injury Abscess or infection considered, but thought unlikely given lack of redness, warmth, and rapid onset. Discharge Plan Departure Patient Disposition: Home Clinical Impression: Hematoma of lower extremity Qualifiers: Encounter type: initial encounter Laterality: right Qualified Code(s): S80.11XA - Contusion of right lower leg, initial encounter Discharge Date/Time: 09/05/19 21:41 Instructions: DI for Hematoma (Bruise) Activity Restrictions/Additional Instructions: *You have been diagnosed with [acute right calf hematoma] *What to do: *Take medications as directed *Follow up with your primary care provider in 2-3 days, call for an appointment. Let them know you were seen in the Emergency Department and that we ask that you be seen in follow up *Return to ER if you should have any new, worsening or concerning symptoms Prescriptions: No Action doxycycline hyclate 100 mg tablet 100 mg PO BID Qty: 20 RF: 0 ondansetron 4 mg tablet,disintegrating 4 mg PO TID-QID PRN (Reason: nausea and vomiting) Qty: 10 RF: 0 bupropion HCl 150 mg tablet extended release 24 hr PO RF: 0 diclofenac sodium 75 mg tablet,delayed release (DR/EC) PO RF: 0 trazodone 50 mg tablet RF: 0 diclofenac sodium 1 % gel 2 gram TOP QID PRN (Reason: pain and inflammation) Qty: 100 RF: 0 Referrals: Michael Rodríguez [Primary Care Provider] -
== END 2019-09-05 21:41 | disposition home or self-care (01) ==
PROVIDERS: Emergency Provider Emergency Medicine; PCP Physician Assistant Medical
DX: S80.11XA Contusion of right lower leg, initial encounter (principal); X50.0XXA Overexertion from strenuous movement or load, initial encounter
CPT/HCPCS: 93971; 96372; 99283; J1885

== ENCOUNTER 2019-10-12 16:03 | Emergency (ER) | payer OTHER, MEDICAID, SELFPAY ==
[2019-10-12 16:11] VITALS: BP 149/95; PULSE 74; RESP 18; TEMP 36.6; O2SAT 99; BMI 23.7
[2019-10-12] MEDS: predniSONE 20 MG TABLET 60 MG PO (17:10)
[2019-10-12] MEDS: diphenhydrAMINE 25 MG TABLET 50 MG PO (17:10)
[2019-10-12] MEDS: KETOROLAC 60 MG/2 ML VIAL 30 MG IM (17:10)
[2019-10-12 17:58] VITALS: BP 142/83; PULSE 70; RESP 16; O2SAT 97
[2019-10-12] MEDS: TRAMADOL 50 MG TABLET PO (18:03)
[2019-10-12] MEDS: FAMOTIDINE 20 MG TABLET 40 MG PO (18:20)
--- NOTE | 2019-10-12 19:49 | ED_ITS ---
HPI - Allergic Reaction <MANDY Gonzalez - Last Filed: 10/12/19 19:54> General Chief complaint: Allergic Reaction Stated complaint: multiple bee stings, pain, headache Time Seen by Provider: 10/12/19 16:28 Source: patient Mode of arrival: Ambulatory Limitations: no limitations History of Present Illness HPI narrative: The patient is a 34-year-old male current smoker with history of arthritis who presents with a chief complaint of multiple bee stings at about 230 this afternoon. He states that he was stung by about 20 bees or wasps. He states that the stings are on his head, bilateral arms, legs and flank. He has not taken anything since this happened. He denies any shortness of breath or swelling of his lips face or tongue. He states that the bee stings are very painful. Related Data Home Medications Medication Instructions Recorded Confirmed bupropion HCl mg PO 06/22/19 10/04/19 diclofenac sodium PO 06/22/19 10/04/19 Previous Rx's Medication Instructions Recorded diclofenac sodium 2 gram TOP QID PRN #100 gram 07/03/19 tramadol 50 mg PO Q6H PRN #4 tab 10/12/19 Allergies Allergy/AdvReac Type Severity Reaction Status Date / Time No Known Drug Allergies Allergy Verified 10/12/19 16:11 Review of Systems <COREY Gonzalez - Last Filed: 10/12/19 19:54> Review of Systems Narrative: GENERAL: Denies chills, fatigue, malaise, fever, sweats. HEENT: Denies sinus pain, ear pain, sore throat, difficulty swallowing, dizziness. RESPIRATORY: Denies dyspnea, cough, wheezing, hemoptysis, sputum. CARDIOVASCULAR: Denies chest pain, palpitations, orthopnea, edema, GASTROINTESTINAL: Denies nausea, vomiting, abdominal pain, diarrhea, constipation, melena. : Denies dysuria, frequency, incontinence, hematuria, urinary retention. MUSCULOSKELETAL: denies weakness, joint pain, or bony pain SKIN: See HPI NEUROLOGIC: Denies weakness, headache, numbness, change in speech, confusion, seizures, incoordination. PSYCHIATRIC: No concerning psychosocial issues. 12 point review of systems is negative except for those stated above Patient History <COREY Gonzalez - Last Filed: 10/12/19 19:54> Medical History Arthritis (Acute) Leg fracture, left (Acute) Social History Smoking Status: Current every day smoker Smoking Status: Current every day smoker alcohol intake frequency: holidays/special occasions only Substance Use Type: does not use Exam <MANDY Gonzalez - Last Filed: 10/12/19 19:54> Narrative Exam Narrative: GENERAL: This is a well-nourished, well-developed patient, no acute distress HEAD: Atraumatic. Normocephalic. No temporal or scalp tenderness. EYES: Pupils equal round and reactive. Extraocular motions intact. No scleral icterus. No injection or drainage. ENT: Nose without bleeding, purulent drainage or septal hematoma. Throat without erythema, tonsillar hypertrophy or exudate. Uvula midline. Airway patent. Nor failed oral swelling noted. NECK: Trachea midline. No JVD or lymphadenopathy. Supple, nontender, no meningeal signs. CARDIOVASCULAR: Regular rate and rhythm RESPIRATORY: Clear to auscultation. Breath sounds equal bilaterally. No wheezes, rales, or rhonchi. No cough. No increased respiratory effort. No accessory muscle use. GASTROINTESTINAL: Abdomen soft, non-tender, nondistended. No hepato- splenomegaly, or palpable masses. No guarding. EXTREMITIES: No clubbing, cyanosis, or edema. No joint tenderness, effusion, or edema noted. BACK: Nontender without deformity or crepitance. No flank tenderness. NEURO: AOx3. SKIN: Bee sting sites noted bilateral forearms, above eyebrows, and scalp, left flank. No stingers noted. No extending redness noted. Initial Vital Signs Initial Vital Signs: Vital Signs Temperature 97.9 F 10/12/19 16:11 Pulse Rate 74 10/12/19 16:11 Respiratory Rate 18 10/12/19 16:11 Blood Pressure 149/95 H 10/12/19 16:11 Pulse Oximetry 99 10/12/19 16:11 <Rebecca Henriquez DO - Last Filed: 10/17/19 07:26> Initial Vital Signs Initial Vital Signs: Vital Signs Temperature 97.9 F 10/12/19 16:11 Pulse Rate 74 08/27/20 16:11 Respiratory Rate 18 10/12/19 16:11 Blood Pressure 149/95 H 10/12/19 16:11 Pulse Oximetry 99 10/12/19 16:11 Scores <MANDY Gonzalez - Last Filed: 10/12/19 19:54> GCS [place] coma scale eye opening: Spontaneous [place] coma scale verbal response: Orientated [place] coma scale motor response: Obey commands [place] coma scale total score: 15 Course <MANDY Gonzalez - Last Filed: 10/12/19 19:54> Orders Ordered: Discontinued Medications Diphenhydramine HCl (Benadryl) 50 mg PO NOW ONE Stop: 10/12/19 17:00 Last Admin: 10/12/19 17:10 Dose: 50 mg Documented by: SADIE Famotidine (Pepcid Ac) 40 mg PO DAILY ONE Stop: 10/12/19 17:55 Last Admin: 10/12/19 18:20 Dose: 40 mg Documented by: SADIE Ketorolac Tromethamine (Toradol) 30 mg IM NOW ONE Stop: 10/12/19 17:00 Last Admin: 10/12/19 17:10 Dose: 30 mg Documented by: SADIE Prednisone (Deltasone) 60 mg PO NOW ONE Stop: 10/12/19 17:00 Last Admin: 10/12/19 17:10 Dose: 60 mg Documented by: SADIE Tramadol HCl (Ultram) 50 mg PO NOW ONE Stop: 10/12/19 17:54 Last Admin: 10/12/19 18:03 Dose: 50 mg Documented by: SADIE Vital Signs Vital signs: Vital Signs - 8 hr 10/12/19 16:11 10/12/19 17:58 Temperature 97.9 F Pulse Rate 74 70 Respiratory Rate 18 16 Blood Pressure 149/95 H 142/83 H Pulse Oximetry 99 97 <Rebecca Henriquez DO - Last Filed: 10/17/19 07:26> Orders Ordered: Discontinued Medications Diphenhydramine HCl (Benadryl) 50 mg PO NOW ONE Stop: 10/12/19 17:00 Last Admin: 10/12/19 17:10 Dose: 50 mg Documented by: SADIE Famotidine (Pepcid Ac) 40 mg PO DAILY ONE Stop: 10/12/19 17:55 Last Admin: 10/12/19 18:20 Dose: 40 mg Documented by: SADIE Ketorolac Tromethamine (Toradol) 30 mg IM NOW ONE Stop: 10/12/19 17:00 Last Admin: 10/12/19 17:10 Dose: 30 mg Documented by: SADIE Prednisone (Deltasone) 60 mg PO NOW ONE Stop: 10/12/19 17:00 Last Admin: 10/12/19 17:10 Dose: 60 mg Documented by: SADIE Tramadol HCl (Ultram) 50 mg PO NOW ONE Stop: 10/12/19 17:54 Last Admin: 10/12/19 18:03 Dose: 50 mg Documented by: SADIE Vital Signs Vital signs: Vital Signs - 8 hr 10/12/19 16:11 10/12/19 17:58 Temperature 97.9 F Pulse Rate 74 70 Respiratory Rate 18 16 Blood Pressure 149/95 H 142/83 H Pulse Oximetry 99 97 MDM - Allergic Reaction <MANDY Gonzalez - Last Filed: 10/12/19 19:54> MDM Narrative Medical decision making narrative: The patient is a 34-year-old male who presents with a chief complaint of multiple bee stings. He had obvious discomfort on exam. He was treated with the above-stated therapies and feels much improved. He has no signs of anaphylaxis, no hives, no swelling of oropharyngeal cavity. I did place him on a prednisone burst hip given the severity of his multiple stings. Discussed at length continued antihistamines, small dose of tramadol given to help the patient sleep. Discussed at length the importance of following up with primary care provider as well as coming back to the emergency department for any acute concerns. Patient has no questions or concerns upon discharge and states understanding of return precautions as well as follow-up care. Discharge Plan Departure Patient Disposition: Home Clinical Impression: Accidental bee sting Discharge Date/Time: 10/12/19 19:53 Instructions: How to Care for an Insect Bite or Sting, Insect Bites and Stings (Alternative Therapy), DI for Insect Bites and Stings Activity Restrictions/Additional Instructions: Thank you for trusting us with your care today. I sent 2 prescriptions to [facility] in [place] Please follow-up with primary care provider in the next few days. Please come back to the emergency department for any acute concerns such as swelling of your lips face tongue, difficulty breathing etcetera I have given you a prescription of a narcotic for pain. Be aware that this can be constipating and sedating. I encouraged taking with a stool softener, pushing fluids and fiber. Do not take and drive, operate heavy machinery, etc. Do not combine it with any other sedating substances such as alcohol. The combination of narcotics and alcohol and/or other sedatives can be lethal. Prescriptions: New tramadol 50 mg tablet 50 mg PO Q6H PRN (Reason: pain) Qty: 4 RF: 0 No Action bupropion HCl 150 mg tablet extended release 24 hr PO RF: 0 diclofenac sodium 75 mg tablet,delayed release (DR/EC) PO RF: 0 diclofenac sodium 1 % gel 2 gram TOP QID PRN (Reason: pain and inflammation) Qty: 100 RF: 0 Referrals: Rodrigo Donis MD [Primary Care Provider] - <Rebecca Henriquez DO - Last Filed: 10/17/19 07:26> Cosign ED Attending Joiature Attestation: I was immediately available in the department for consultation. Documentation has been reviewed. I agree with assessment and plan.
[2019-10-12 19:52] VITALS: BP 104/60; PULSE 70; O2SAT 98
== END 2019-10-12 19:53 | disposition home or self-care (01) ==
PROVIDERS: Emergency Provider Nurse Practitioner Family; PCP Student in an Organized Health Care Education/Training Program
DX: T63.441A Toxic effect of venom of bees, accidental (unintentional), initial encounter (principal); Y99.0 Civilian activity done for income or pay
CPT/HCPCS: 96372; 99283; A9270; J1885

== ENCOUNTER 2019-11-11 19:06 | Emergency (ER) | payer OTHER, MEDICAID, SELFPAY ==
[2019-11-11 19:17] VITALS: BP 151/87; PULSE 79; RESP 18; TEMP 36.9; O2SAT 98
--- NOTE | 2019-11-11 19:37 | DI.RAD.S_ITS ---
PROCEDURE: XR THORACIC SPINE 3V INDICATIONS: right thoracic pain, fell 10 days ago TECHNIQUE: 3 views of the thoracic spine were acquired. COMPARISON: None. FINDINGS: Bones: No fractures or subluxation. There is a minimal rightward curvature of the thoracic spine. No suspicious bony lesions. 12 pairs of ribs are noted, and appear intact where visualized. Soft tissues: No paravertebral stripe thickening. IMPRESSION: 1. No evidence of fracture or subluxation. Dictated by: Elan Rouse M.D. on 11/11/2019 at 20:35 Approved by: Elan Rouse M.D. on 11/11/2019 at 20:36
[2019-11-11] MEDS: KETOROLAC 60 MG/2 ML VIAL 30 MG IM (20:11)
[2019-11-11] MEDS: CYCLOBENZAPRINE 10 MG TABLET PO (20:11)
[2019-11-11] MEDS: LIDOCAINE PATCH 1 EACH ADH..PATCH TOP (20:11)
[2019-11-11] MEDS: ACETAMINOPHEN 325 MG TABLET 650 MG PO (20:12)
--- NOTE | 2019-11-11 20:27 | ED.BACK ---
HPI - Back Pain/Injury <Vitor Hudson [facility] - Last Filed: 11/11/19 21:24> General Chief Complaint: Back Pain/Injury Stated Complaint: Upper Back Pain and Left Ankle Pain Time Seen by Provider: 11/11/19 19:26 Source: patient Mode of arrival: Ambulatory Limitations: no limitations History of Present Illness HPI Narrative: This is a 34-year-old male, smoker, who presents to ED with significant other with chief complain of right-sided left thoracic back pain after he slipped and fell off of work stroke which was 2 ft above the ground about 10 days ago. Patient also reports chronic left ankle pain which she had fractures and surgeries. Patient had not any radiology test done after the injury. Patient denies tingling/numbness/weakness to upper extremities. Patient reports pain is 10/10 and constant without aggravating or relieving factors, stabbing in character. Patient takes daily diclofenac 75 mg twice a day usually and had not taken night dose yet. Patient had taken Tylenol 650 mg this a.m. without much relief and had not taken. Related Data Home Medications Medication Instructions Recorded Confirmed bupropion HCl mg PO 06/22/19 10/04/19 diclofenac sodium PO 06/22/19 10/04/19 Previous Rx's Medication Instructions Recorded diclofenac sodium 2 gram TOP QID PRN #100 gram 07/03/19 tramadol 50 mg PO Q6H PRN #4 tab 10/12/19 cyclobenzaprine 10 mg PO BEDTIME PRN #7 tab 11/11/19 lidocaine 1 patch TOP Q24H PRN #30 each 11/11/19 Allergies Allergy/AdvReac Type Severity Reaction Status Date / Time No Known Drug Allergies Allergy Verified 11/11/19 19:20 Review of Systems <Vitor Hudson [facility] - Last Filed: 11/11/19 21:24> Review of Systems Narrative: General: Denies fever, chills, fatigue, malaise, sweats. HEENT: Denies sinus pain, ear pain, sore throat, difficulty swallowing, dizziness. Respiratory: Denies dyspnea, cough, wheezing, hemoptysis, sputum. Cardiovascular: Denies chest pain, palpitations, orthopnea, edema. Gastrointestinal: Denies nausea, vomiting, abdominal pain, diarrhea, constipation, melena. : Denies dysuria, frequency, incontinence, hematuria, urinary retention. Musculoskeletal: See HPI Skin: Denies rash, skin lesions, or other. Neurologic: Denies weakness, headache, numbness, change in speech, confusion, seizures, incoordination. Psychiatric: No concerning psychosocial issues. 12-point review of systems is negative except for those stated above. Patient History <Vitor MontesJIGNA York - Last Filed: 11/11/19 21:24> Medical History Arthritis (Acute) Leg fracture, left (Acute) Social History Smoking Status: Current every day smoker Smoking Status: Current every day smoker alcohol intake frequency: holidays/special occasions only Substance Use Type: does not use Exam <Vitor MontesJIGNA York - Last Filed: 11/11/19 21:24> Narrative Exam Narrative: General appearance: well developed, well nourished, in no acute distress. Head: normocephalic, atraumatic, no scalp lesions, non-tender. ENT: Hearing grossly intact. Nose without bleeding, purulent discharge. Airway patent. Neck/Thyroid: neck supple, full range of motion, no visible masses or meningeal signs. No JVD, non-tender without lymphadenopathy. Skin: no suspicious rashes, lesions over visible areas. Warm and dry and appropriate color for ethnicity. Heart: no clubbing, no cyanosis, no edema. Lungs: Breathing even and unlabored. No stridor. No accessory muscles used. Able to speak in full sentences. Chest: normal shape and expansion. Abdomen: non-obese, non-distended. Neurologic: alert and oriented. Cognitive exam, SOFTWARE TEST SPECIALIST and PNS grossly intact on informal exam. Psych: good eye contact, normal affect. Initial Vital Signs Initial Vital Signs: Vital Signs Temperature 98.4 F 11/11/19 19:17 Pulse Rate 79 11/11/19 19:17 Respiratory Rate 18 11/11/19 19:17 Blood Pressure 151/87 H 11/11/19 19:17 Pulse Oximetry 98 11/11/19 19:17 Back/Spine/Pelvis Thoracic/Lumbar Spine: thoracic and lumbar spine normal to inspection, No surgical scar(s) present, bend over test abnormal, No mass, pain with thoraco-lumbar ROM, paraspinal tenderness (Right thoracic), thoraco-lumbar ROM limited, No thoracic spinal tenderness and No lumbar spinal tenderness <Remberto Kemp DO - Last Filed: 11/11/19 21:49> Initial Vital Signs Initial Vital Signs: Vital Signs Temperature 98.4 F 11/11/19 19:17 Pulse Rate 79 11/11/19 19:17 Respiratory Rate 18 11/11/19 19:17 Blood Pressure 151/87 H 11/11/19 19:17 Pulse Oximetry 98 11/11/19 19:17 Scores <Vitor MontesJOSE MARIA YorkP - Last Filed: 11/11/19 21:24> GCS [place] coma scale eye opening: Spontaneous [place] coma scale verbal response: Orientated [place] coma scale motor response: Obey commands [place] coma scale total score: 15 Course <Vitor JIGNA Hudson - Last Filed: 11/11/19 21:24> Orders Ordered: ED Orders 11/11/19 19:37 XR thoracic spine 3V Stat Discontinued Medications Acetaminophen (Tylenol) 650 mg PO NOW ONE Stop: 11/11/19 19:38 Last Admin: 11/11/19 20:12 Dose: 650 mg Documented by: ARNAUD Cyclobenzaprine HCl (Flexeril) 10 mg PO NOW ONE Stop: 11/11/19 19:38 Last Admin: 11/11/19 20:11 Dose: 10 mg Documented by: ARNAUD Ketorolac Tromethamine (Toradol) 30 mg IM NOW ONE Stop: 11/11/19 19:38 Last Admin: 11/11/19 20:11 Dose: 30 mg Documented by: ARNAUD Lidocaine (Lidoderm) 1 each TOP NOW ONE Stop: 11/11/19 19:38 Last Admin: 11/11/19 20:11 Dose: 1 each Documented by: ARNAUD Vital Signs Vital signs: Vital Signs - 8 hr 11/11/19 19:17 Temperature 98.4 F Pulse Rate 79 Respiratory Rate 18 Blood Pressure 151/87 H Pulse Oximetry 98 <Remberto Kemp DO - Last Filed: 11/11/19 21:49> Orders Ordered: ED Orders 11/11/19 19:37 XR thoracic spine 3V Stat Discontinued Medications Acetaminophen (Tylenol) 650 mg PO NOW ONE Stop: 11/11/19 19:38 Last Admin: 11/11/19 20:12 Dose: 650 mg Documented by: ARNAUD Cyclobenzaprine HCl (Flexeril) 10 mg PO NOW ONE Stop: 11/11/19 19:38 Last Admin: 11/11/19 20:11 Dose: 10 mg Documented by: ARNAUD Ketorolac Tromethamine (Toradol) 30 mg IM NOW ONE Stop: 11/11/19 19:38 Last Admin: 11/11/19 20:11 Dose: 30 mg Documented by: ARNAUD Lidocaine (Lidoderm) 1 each TOP NOW ONE Stop: 11/11/19 19:38 Last Admin: 11/11/19 20:11 Dose: 1 each Documented by: ARNAUD Vital Signs Vital signs: Vital Signs - 8 hr 11/11/19 19:17 Temperature 98.4 F Pulse Rate 79 Respiratory Rate 18 Blood Pressure 151/87 H Pulse Oximetry 98 MDM - Back Pain/Injury <JIGNA Manuel - Last Filed: 11/11/19 21:24> Differential Diagnosis Differential diagnosis: Likely thoracic back pain and other (Thoracic spine fracture) Medical Records Attestation: I reviewed the patient's medical records. Imaging Data XR- Thoracic: Radiologist's Impression: [place] [address] XRay Report Signed Patient: Keshav Cortes [facility]#: [id number] : 1985Acct:[id number] Age/Sex: 34 / MDate of Service: 11/11/19 Loc: ED Accession Number: [id number] Procedure: XR thoracic spine 3V Ordering Provider: Vitor Hudson PROCEDURE: XR THORACIC SPINE 3V INDICATIONS: right thoracic pain, fell 10 days ago TECHNIQUE: 3 views of the thoracic spine were acquired. COMPARISON: None. FINDINGS: Bones: No fractures or subluxation. There is a minimal rightward curvature of the thoracic spine. No suspicious bony lesions. 12 pairs of ribs are noted, and appear intact where visualized. Soft tissues: No paravertebral stripe thickening. IMPRESSION: 1. No evidence of fracture or subluxation. Dictated by: Elan Rouse M.D. on 11/11/2019 at 20:35 Approved by: Elan Rouse M.D. on 11/11/2019 at 20:36 [facility] Narrative Medical decision making narrative: This is a 34 year male who presents to ED with right-sided thoracic para spine discomfort after he accidentally slipped and fell of a work truck 2 ft above the ground. Patient has been taking routine diclofenac daily but without much improvement. Patient had equal bilateral upper extremity strength, sensation, and distal pulses. X-ray test does not show acute findings such as fractures or subluxation in thoracic spine or ribs. Patient was medicated with lidocaine patch, Flexeril, Tylenol and Toradol IM injection with mild improvement And discharged to home with same medications. Return precautions were discussed with patient and patient verbalized understanding and agreement with the treatment plan. Discharge Plan Departure Patient Disposition: Home Clinical Impression: Acute thoracic back pain Qualifiers: Back pain laterality: right Qualified Code(s): M54.6 - Pain in thoracic spine Discharge Date/Time: 11/11/19 21:42 Instructions: DI for Back Strain or Sprain Activity Restrictions/Additional Instructions: You have been diagnosed with [right-sided thoracic back pain. X-ray test does not show acute findings.]. What to do: *Take your medications as directed. Continue with diclofenac and add [id number] Tylenol 650 to 1000 mg up to 3 to 4 times a day as needed for pain. Lidocaine patch on affected site as needed for pain. The patch stays on for 12 hours and off for 12 hours. If this is too expensive, you can purchase [id number] 4% lidocaine patch to use. Flexeril is muscle relaxant in can cause drowsiness. You can use it at night when you go to sleep. Do not drink alcohol, operate heavy equipments, or drive while your on this medication. This medication have been transmitted to [facility] in [place]. *Follow up with your primary care provider in 2-3 days, call for an appointment. Let them know you were seen in the ED and that we asked you to be seen in follow up. *Return to ED if you have any new, worsening, or concerning symptoms, such as [worsening pain, tingling/numbness/weakness to extremities, chest pain, breathing difficulty, unable to tolerate fluids or any acute concerns]. Prescriptions: New cyclobenzaprine 10 mg tablet 10 mg PO BEDTIME PRN (Reason: muscle spasm) Qty: 7 RF: 0 lidocaine 5 % adhesive patch,medicated 1 patch TOP Q24H PRN (Reason: pain) Qty: 30 RF: 0 No Action bupropion HCl 150 mg tablet extended release 24 hr PO RF: 0 diclofenac sodium 75 mg tablet,delayed release (DR/EC) PO RF: 0 diclofenac sodium 1 % gel 2 gram TOP QID PRN (Reason: pain and inflammation) Qty: 100 RF: 0 tramadol 50 mg tablet 50 mg PO Q6H PRN (Reason: pain) Qty: 4 RF: 0 Referrals: Rodrigo Donis MD [Primary Care Provider] - <Remberto Kemp DO - Last Filed: 11/11/19 21:49> [facility]ign [facility] Dr Kemp Co-Sign Statement: I was available for consultation during this patient's emergency department visit. This chart is signed by myself for administrative purposes only. I did not have direct contact with this patient during this visit. They were seen independently by the APC.
== END 2019-11-11 21:42 | disposition home or self-care (01) ==
PROVIDERS: Emergency Provider Nurse Practitioner Family; PCP Student in an Organized Health Care Education/Training Program
DX: M54.6 Pain in thoracic spine (principal); W01.0XXA Fall on same level from slipping, tripping and stumbling without subsequent striking against object, initial encounter
CPT/HCPCS: 72072; 96372; 99283; J1885

== ENCOUNTER → 2019-12-20 11:56 | Outpatient (CLI) | payer OTHER, MEDICAID, SELFPAY ==
[2019-12-20 12:22] LABS: Influenza A - CEPHEID Flu A NEGATIVE (NEGATIVE)
[2019-12-20 12:23] LABS: Influenza B - CEPHEID Flu B NEGATIVE (NEGATIVE)
[2019-12-21 11:36] LABS: COVID19 Sendout Not Detected (Not Detected)
== END ==
PROVIDERS: PCP Student in an Organized Health Care Education/Training Program; Visit Provider Physician Assistant
DX: R05 Cough (principal)
CPT/HCPCS: 87502; 87635

== ENCOUNTER 2020-01-31 23:05 | Emergency (ER) | payer OTHER, MEDICAID, SELFPAY ==
[2020-01-31 23:17] VITALS: BP 149/79; PULSE 86; RESP 17; TEMP 36.9; O2SAT 98; BMI 37.6
--- NOTE | 2020-01-31 23:24 | ED_ITS ---
HPI - General Adult General Chief complaint: Skin/Abscess/Foreign Body Stated complaint: wound left leg, draining, pus, pain Time Seen by Provider: 01/31/20 23:11 Source: patient Mode of arrival: Ambulatory Limitations: no limitations History of Present Illness HPI narrative: Patient is a 34-year-old male here for evaluation what he thinks is infection of his left leg. He has a scar on the anterior portion of his left leg which was caused by a accident last year. He states it took a very long time for the wound to heal. Over the past day or so he has noticed more pain and also some redness around this area. He stated that his started draining pus earlier today. Also states he is having quite a bit of discomfort around the area. Related Data Home Medications Medication Instructions Recorded Confirmed bupropion HCl mg PO 06/22/19 01/26/20 Previous Rx's Medication Instructions Recorded diclofenac sodium 2 gram TOP QID PRN #100 gram 07/03/19 lidocaine 1 patch TOP Q24H PRN #30 each 11/11/19 diclofenac sodium 75 mg 75 mg PO BID #180 tab 01/15/20 tablet,delayed release ondansetron 4 mg disintegrating 4 mg PO Q6-8H PRN #30 tab 01/26/20 tablet doxycycline hyclate 100 mg PO BID 7 Days #14 tab 01/31/20 Allergies Allergy/AdvReac Type Severity Reaction Status Date / Time No Known Drug Allergies Allergy Verified 01/26/20 09:51 Review of Systems Constitutional Constitutional: Denies fever(s) Cardiovascular Cardiovascular: Denies chest pain and Denies dyspnea Respiratory Respiratory: Denies dyspnea Musculoskeletal Musculoskeletal: Denies arthralgias and Denies myalgias Integumentary/Breasts Skin/Breast: Reports lesions Comments: Pus draining from left anterior leg Neurologic Neurologic: Denies behavioral changes Psychiatric Psychiatric: Denies behavioral changes Patient History Medical History Arthritis Leg fracture, left Pneumonia Social History Smoking Status: Current every day smoker Smoking Status: Current every day smoker alcohol intake frequency: holidays/special occasions only Substance Use Type: does not use Exam Initial Vital Signs Initial Vital Signs: Vital Signs Temperature 98.4 F 01/31/20 23:17 Pulse Rate 86 01/31/20 23:17 Respiratory Rate 17 01/31/20 23:17 Blood Pressure 149/79 H 01/31/20 23:17 Pulse Oximetry 98 01/31/20 23:17 Const General: cooperative and comfortable Limitations: mental status not altered Skin Other: Patient does have a 5 cm scar anterior aspect of his left leg. Over top of the scar and there is a 1 cm x 1 cm area of scab. Under the scab was able to express a small amount of purulent material. Course Orders Ordered: ED Orders 01/31/20 23:25 Wound Culture and Gram Stain Stat Discontinued Medications Doxycycline Hyclate (Doxycycline Hyclate 100 Mg Tablet) 100 mg PO NOW ONE Stop: 01/31/20 23:25 Last Admin: 01/31/20 23:30 Dose: 100 mg Documented by: HARVINDER Ketorolac Tromethamine (Ketorolac 60 Mg/2 Ml Vial) 30 mg IM NOW ONE Stop: 01/31/20 23:25 Last Admin: 01/31/20 23:30 Dose: 30 mg Documented by: HARVINDER Vital Signs Vital signs: Vital Signs - 8 hr 01/31/20 23:17 Temperature 98.4 F Pulse Rate 86 Respiratory Rate 17 Blood Pressure 149/79 H Pulse Oximetry 98 Medical Decision Making MDM Narrative Medical decision making narrative: The scar on his left anterior garcia is red in is tender to touch. There is a small eschar around the area that I was able to express a small amount of purulent material. This was cultured. There is minimal if any redness around the scar itself. Low suspicion for abscess. Will send home with a prescription for doxycycline after receiving a dose here in the ER. No indication for IV antibiotics. He was given return precautions. He expressed understanding and agreement. Discharge Plan Departure Patient Disposition: Home Clinical Impression: Cellulitis Instructions: DI for Cellulitis -- Adult Activity Restrictions/Additional Instructions: Start taking the antibiotics as directed. Your 1st dose was given here in the emergency department. Your next dose will be tomorrow morning. The prescription was electronically transmitted to [facility] in [place] Take the rest of your medications as directed. Contact your primary provider for follow- up. A wound culture was obtained and is pending at the time ear discharge. If we need to switch any antibiotics you will be contacted by phone. Return to the emergency department for any new or worsening symptoms Prescriptions: New doxycycline hyclate 100 mg tablet 100 mg PO BID 7 Days Qty: 14 RF: 0 No Action ondansetron 4 mg tablet,disintegrating 4 mg PO Q6-8H PRN (Reason: nausea and vomiting) Qty: 30 RF: 0 diclofenac sodium 75 mg tablet,delayed release (DR/EC) 75 mg PO BID Qty: 180 RF: 1 bupropion HCl 150 mg tablet extended release 24 hr PO RF: 0 diclofenac sodium 1 % gel 2 gram TOP QID PRN (Reason: pain and inflammation) Qty: 100 RF: 0 lidocaine 5 % adhesive patch,medicated 1 patch TOP Q24H PRN (Reason: pain) Qty: 30 RF: 0 Referrals: Rodrigo Donis MD [Primary Care Provider] -
[2020-01-31] MEDS: DOXYCYCLINE HYCLATE 100 MG TABLET PO (23:30)
[2020-01-31] MEDS: KETOROLAC 60 MG/2 ML VIAL 30 MG IM (23:30)
== END 2020-01-31 23:42 | disposition home or self-care (01) ==
PROVIDERS: Emergency Provider Emergency Medicine; PCP Student in an Organized Health Care Education/Training Program
DX: L03.116 Cellulitis of left lower limb (principal)
CPT/HCPCS: 87070; 87075; 87077; 87147; 87186; 87205; 96372; 99281; 99283; J1885

== ENCOUNTER → 2020-02-28 11:51 | Outpatient (CLI) | payer OTHER, MEDICAID, SELFPAY ==
[2020-02-28 12:51] LABS: Influenza A - CEPHEID Flu A NEGATIVE (NEGATIVE); Influenza B - CEPHEID Flu B NEGATIVE (NEGATIVE)
[2020-02-28 13:11] LABS: COVID19 -Nasal RAPID Negative (Negative)
== END ==
PROVIDERS: PCP Student in an Organized Health Care Education/Training Program; Visit Provider Physician Assistant
DX: Z20.822 Contact with and (suspected) exposure to COVID-19 (principal); R19.7 Diarrhea, unspecified
CPT/HCPCS: 87502; 87635

== ENCOUNTER 2020-03-20 17:55 | Emergency (ER) | payer OTHER, MEDICAID, SELFPAY ==
[2020-03-20 17:59] VITALS: BP 140/81; PULSE 64; RESP 18; TEMP 36.6; O2SAT 99
--- NOTE | 2020-03-20 18:04 | DI.CT.S_ITS ---
PROCEDURE: CT CHEST ABD PEL WO CON INDICATIONS: fall from roof onto back, lower thor back pain TECHNIQUE: After the administration of oral contrast, 5 mm thick sections acquired from the lung apices to the symphysis pubis. 5 mm thick coronal and sagittal reformats acquired, with additional 7 mm coronal MIP reformats through the lungs. For radiation dose reduction, the following was used: automated exposure control, adjustment of mA and/or kV according to patient size. COMPARISON: None. FINDINGS: Image quality: Excellent. CHEST: Lungs and pleura: No acute pulmonary opacities. No pleural effusions or pneumothorax. Central and peripheral airways are patent are normal in caliber. Mediastinum: Heart size is normal. No pericardial effusion. No mediastinal adenopathy by CT size criteria. Thoracic aorta and central pulmonary arteries are normal in size. Esophagus is normal in caliber. No hiatal hernia. Chest wall: No axillary or supraclavicular adenopathy by size criteria. Thyroid gland is normal. ABDOMEN: Solid organs: Liver is normal in size. Gallbladder is normal. Pancreas is normal in contours. Spleen is normal in size. No adrenal nodules. Both kidneys are normal in size, without hydronephrosis or nephrolithiasis. Peritoneum and bowel: Small and large bowel loops are normal in caliber and wall thickness. There are scattered colonic diverticula. No CT findings to suggest acute diverticulitis. Normal appendix. No free fluid or air. Nodes and vessels: No retroperitoneal or mesenteric adenopathy by size criteria. Aorta and inferior vena cava are normal in size. Miscellaneous: No ventral hernias. PELVIS: Genitourinary: Bladder wall thickness is normal. Miscellaneous: No inguinal adenopathy. Small fat containing inguinal hernias bilaterally. Bones: No suspicious bony lesions. No vertebral body compression fractures. Mild degenerative changes in lower thoracic and lumbar spine. IMPRESSION: 1. No acute traumatic injuries identified in thorax, abdomen or pelvis. 2. Mild diverticulosis without acute diverticulitis. Dictated by: Kel Sy M.D. on 03/20/2020 at 18:30 Approved by: Kel Sy M.D. on 03/20/2020 at 18:51
--- NOTE | 2020-03-20 19:09 | PC.NURSE ---
Pt stated fall today at work 7ft through a gazebo. fell onto 2x4 wood and having pain in thoracic area of back. no ecchymosis noted. ambulatory. states numbness and tingling is baseline for him.
--- NOTE | 2020-03-20 19:23 | ED_ITS ---
HPI - Back Pain/Injury General Chief Complaint: Back Pain/Injury Stated Complaint: fall at work, back injury Time Seen by Provider: 03/20/20 19:17 Source: patient and family History of Present Illness HPI Narrative: Patient here with umer. Fell at work for p.m. today. 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 A gazebo collapse any fell on top the lumbar. Denies any his head. No neck pain. No limb complaints. Only complains of mid back and lower back pain. No numbness tingling weakness to legs or feet. No saddle paresthesia. No urinary or bladder incontinence. Related Data Home Medications Medication Instructions Recorded Confirmed bupropion HCl mg PO 06/22/19 02/28/20 Previous Rx's Medication Instructions Recorded diclofenac sodium 2 gram TOP QID PRN #100 gram 07/03/19 lidocaine 1 patch TOP Q24H PRN #30 each 11/11/19 diclofenac sodium 75 mg 75 mg PO BID #180 tab 01/15/20 tablet,delayed release ondansetron 4 mg disintegrating 4 mg PO Q6-8H PRN #30 tab 01/26/20 tablet cyclobenzaprine 10 mg PO TID PRN #10 tab 03/20/20 ibuprofen 600 mg PO Q6H PRN #24 tab 03/20/20 Allergies Allergy/AdvReac Type Severity Reaction Status Date / Time No Known Drug Allergies Allergy Verified 02/28/20 11:49 Review of Systems Review of Systems Narrative: GENERAL: Denies chills, fatigue, malaise, fever, sweats. HEENT: Denies sinus pain, ear pain, sore throat RESPIRATORY: Denies dyspnea, cough CARDIOVASCULAR: Denies chest pain, palpitations GASTROINTESTINAL: Denies nausea, vomiting, abdominal pain : Denies dysuria, frequency, hematuria MUSCULOSKELETAL: Complains muscle or bony pain SKIN: Denies rash, skin lesions NEUROLOGIC: Denies weakness, numbness ROS Unobtainable: All systems reviewed & are unremarkable except as noted in HPI and below Patient History Medical History Arthritis Leg fracture, left Pneumonia Social History Smoking Status: Current every day smoker Smoking Status: Current every day smoker alcohol intake frequency: holidays/special occasions only Substance Use Type: does not use Exam Narrative Exam Narrative: GENERAL: in no distress, not toxic not dyspneic HEAD: Normocephalic. Nontender scalp no crepitus or step-off. No skin injury. No scalp injury EYES: Pupils equal round No scleral icterus. No injection no discharge ENT: Mucous membranes moist. NECK: Trachea midline. No midline tenderness or step-off. CARDIOVASCULAR: Regular rate and rhythm without murmurs RESPIRATORY: Clear to auscultation. Breath sounds equal bilaterally. No wheezes, rales, or rhonchi. GASTROINTESTINAL: Abdomen soft, non-tender EXTREMITIES: No gross deformities. Nontender bilateral shoulders elbows wrists pelvis hips knees and ankles BACK: Base of neck to lower back exposed. There is no no no skin injury or bruising or abrasions or lacerations. Diffuse parathoracic and paralumbar muscle tenderness. There is no midline tenderness or step-off. Mild bilateral posterior rib tenderness but no crepitus or flail. NEURO: AOx4. Clear speech. Strong bilateral patellar reflexes and ankle and knee flexion extension. SKIN: Warm and dry PSYCH: Not anxious, is cooperative Initial Vital Signs Initial Vital Signs: Vital Signs Temperature 97.9 F 03/20/20 17:59 Pulse Rate 64 03/20/20 17:59 Respiratory Rate 18 03/20/20 17:59 Blood Pressure 140/81 03/20/20 17:59 Pulse Oximetry 99 03/20/20 17:59 Course Course Course Narrative: No new complaints during course of stay Orders Ordered: ED Orders 03/20/20 18:04 CT chest abd pel wo con Stat Discontinued Medications Hydrocodone Bitart/Acetaminophen (Hydrocodone/Acet 5/325 Tablet) 2 tab PO NOW ONE Stop: 03/20/20 19:23 Last Admin: 03/20/20 19:36 Dose: 2 tab Documented by: CARLOS ENRIQUE Ketorolac Tromethamine (Ketorolac 60 Mg/2 Ml Vial) 30 mg IM NOW ONE Stop: 03/20/20 19:23 Last Admin: 03/20/20 19:36 Dose: 30 mg Documented by: CARLOS ENRIQUE Ondansetron HCl (Ondansetron 4 Mg Odt) 4 mg SL NOW ONE Stop: 03/20/20 19:23 Last Admin: 03/20/20 19:36 Dose: 4 mg Documented by: CARLOS ENRIQUE Reevaluation(s) Reevaluation #1: Reviewed with patient and fiancee results. 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 He states he can take opiate here and will not be a problem. No prescriptions. Time: 19:33 Vital Signs Vital signs: Vital Signs - 8 hr 03/20/20 17:59 03/20/20 19:59 Temperature 97.9 F Pulse Rate 64 72 Respiratory Rate 18 16 Blood Pressure 140/81 133/66 Pulse Oximetry 99 97 MDM - Back Pain/Injury Differential Diagnosis Differential diagnosis: Likely other (Contusion/lumbar fracture/thoracic f racture ) Imaging Data CT chest abdomen pelvis without contrast: Radiologist's Impression: [address] [id number] Scan ReportSigned Patient: Keshav Cortes [facility]#: [id number]: 1985Acct:[id number]/Sex: 34 / MDate of Service: 03/20/20Loc: EDAccession Number: [id number] Procedure: CT chest abd pel wo con Ordering Provider: Caesar Fuentes MD PROCEDURE: CT CHEST ABD PEL WO CON INDICATIONS: fall from roof onto back, lower thor back pain TECHNIQUE: After the administration of oral contrast, 5 mm thick sections acquired from the lung apices to the symphysis pubis. 5 mm thick coronal and sagittal reformats acquired, with additional 7 mm coronal MIP reformats through the lungs. For radiation dose reduction, the following was used: automated exposure control, adjustment of mA and/or kV according to patient size. COMPARISON: None. FINDINGS: Image quality: Excellent. CHEST: Lungs and pleura: No acute pulmonary opacities. No pleural effusions or pneumothorax. Central and peripheral airways are patent are normal in caliber. Mediastinum: Heart size is normal. No pericardial effusion. No mediastinal adenopathy by CT size criteria. Thoracic aorta and central pulmonary arteries are normal in size. Esophagus is normal in caliber. No hiatal hernia. Chest wall: No axillary or supraclavicular adenopathy by size criteria. Thyroid gland is normal. ABDOMEN: Solid organs: Liver is normal in size. Gallbladder is normal. Pancreas is normal in contours. Spleen is normal in size. No adrenal nodules. Both kidneys are normal in size, without hydronephrosis or nephrolithiasis. Peritoneum and bowel: Small and large bowel loops are normal in caliber and wall thickness. There are scattered colonic diverticula. No CT findings to suggest acute diverticulitis. Normal appendix. No free fluid or air. Nodes and vessels: No retroperitoneal or mesenteric adenopathy by size criteria. Aorta and inferior vena cava are normal in size. Miscellaneous: No ventral hernias. PELVIS: Genitourinary: Bladder wall thickness is normal. Miscellaneous: No inguinal adenopathy. Small fat containing inguinal hernias bilaterally. Bones: No suspicious bony lesions. No vertebral body compression fractures. Mild degenerative changes in lower thoracic and lumbar spine. IMPRESSION: 1. No acute traumatic injuries identified in thorax, abdomen or pelvis. 2. Mild diverticulosis without acute diverticulitis. Dictated by: Kel Sy M.D. on 03/20/2020 at 18:30 Approved by: Kel Sy M.D. on 03/20/2020 at 18:51 MDM Narrative Medical decision making narrative: Appropriate for discharge home. No other findings or complaints of pain on limbs head or neck. Workman's comp form completed Discharge Plan Departure Patient Disposition: Home Clinical Impression: Contusion of back Qualifiers: Encounter type: initial encounter Laterality: unspecified laterality Qualified Code(s): S20.229A - Contusion of unspecified back wall of thorax, initial encounter Instructions: DI for Contusion, DI for Rib Contusion, DI for Back Spasm Activity Restrictions/Additional Instructions: No operating machinery or driving tonight. Call provided primary care or see your family doctor for office recheck within a week. Return if worse or if any questions or concerns. Prescriptions have been sent to your [facility] pharmacy in [place] Prescriptions: New cyclobenzaprine 10 mg tablet 10 mg PO TID PRN (Reason: muscle spasm) Qty: 10 RF: 0 ibuprofen 600 mg tablet 600 mg PO Q6H PRN (Reason: fever or pain) Qty: 24 RF: 0 No Action ondansetron 4 mg tablet,disintegrating 4 mg PO Q6-8H PRN (Reason: nausea and vomiting) Qty: 30 RF: 0 diclofenac sodium 75 mg tablet,delayed release (DR/EC) 75 mg PO BID Qty: 180 RF: 1 bupropion HCl 150 mg tablet extended release 24 hr PO RF: 0 diclofenac sodium 1 % gel 2 gram TOP QID PRN (Reason: pain and inflammation) Qty: 100 RF: 0 lidocaine 5 % adhesive patch,medicated 1 patch TOP Q24H PRN (Reason: pain) Qty: 30 RF: 0 Referrals: Rodrigo Donis MD [Primary Care Provider] - Stand Alone Forms: Work Release Note
[2020-03-20] MEDS: HYDROCODONE/ACET 5/325 TABLET 2 TAB PO (19:36)
[2020-03-20] MEDS: KETOROLAC 60 MG/2 ML VIAL 30 MG IM (19:36)
[2020-03-20] MEDS: ONDANSETRON 4 MG ODT SL (19:36)
[2020-03-20 19:59] VITALS: BP 133/66; PULSE 72; RESP 16; O2SAT 97
== END 2020-03-20 20:00 | disposition home or self-care (01) ==
PROVIDERS: Emergency Provider Emergency Medicine; PCP Student in an Organized Health Care Education/Training Program
DX: S20.229A Contusion of unspecified back wall of thorax, initial encounter (principal); W22.8XXA Striking against or struck by other objects, initial encounter; Y99.0 Civilian activity done for income or pay
CPT/HCPCS: 71250; 74176; 96372; 99283; 99284; 99285; J1885

== ENCOUNTER → 2020-03-22 13:27 | Outpatient (CLI) | payer OTHER, MEDICAID, SELFPAY ==
--- NOTE | 2020-03-22 13:29 | DI.RAD.S_ITS ---
PROCEDURE: XR ANKLE LT MIN 3V INDICATIONS: Ankle pain; re-eval hardware TECHNIQUE: 3 views of the ankle were acquired. COMPARISON: [facility], CR, XR ANKLE 3+ VIEWS LEFT, 10/08/2018, 21:22. [facility], CR, XR TIBIA FIBULA LT 2V, 06/22/2019, 20:32. FINDINGS: Bones: No fractures or dislocations. Ankle mortise is normally aligned. No suspicious bony lesions. Soft tissues: No tibiotalar joint effusion. Achilles tendon appears normal. IMPRESSION: Lateral distal fibular fixation plate stable over time, establishing normal alignment for healing. Note is made of sclerosis within the distal tibial subarticular cortex and medullary space. Please correlate clinically for whether signs and symptoms of underlying infection could explain that appearance. Dictated by: Peter Fitch M.D. on 03/22/2020 at 14:27 Approved by: Peter Fitch M.D. on 03/22/2020 at 14:29
[2020-03-22 15:51] LABS: Urine N gonorrhoeae NOT DETECTED
[2020-03-22 15:53] LABS: Urine Chlamydia NOT DETECTED
[2020-03-22 15:59] LABS: HIV 1 & 2 Ab/Ag 4th Gen Combo NEGATIVE (NEGATIVE)
[2020-03-23 04:16] LABS: RPR Screen Non Reactive (Non Reactive)
[2020-03-23 04:36] LABS: HBsAg Screen Negative (Negative); Hepatitis A Antibody IgM Negative (Negative); Hepatitis B Core Antibody IgM Negative (Negative); Hepatitis C Antibody <0.1 s/co ratio (0.0-0.9)
[2020-03-25 19:38] LABS: HSV 2 IGG AB 3.95 index (0.00-0.90); HSV1IGG 5.83 index (0.00-0.90)
== END ==
PROVIDERS: PCP Student in an Organized Health Care Education/Training Program; Referring Provider Student in an Organized Health Care Education/Training Program; Visit Provider Student in an Organized Health Care Education/Training Program
DX: G89.29 Other chronic pain (principal); M25.572 Pain in left ankle and joints of left foot; Z72.51 High risk heterosexual behavior
CPT/HCPCS: 36415; 73610; 80074; 86592; 86695; 86696; 87389; 87491; 87591

== ENCOUNTER 2020-04-08 20:58 | Emergency (ER) | payer OTHER, MEDICAID, SELFPAY ==
--- NOTE | 2020-04-08 21:05 | ED.LOWEXIN ---
HPI - Extremity Injury (Lower) General Chief Complaint: Extremity Injury, Lower Stated Complaint: Broke toe Time Seen by Provider: 04/08/20 21:00 Source: patient Mode of arrival: Ambulatory Limitations: no limitations History of Present Illness HPI Narrative: 34-year-old male daily smoker with noncontributory medical history presents with a chief complaint of injury to his right pinky toe just prior to arrival. He states that he kicked a couch and now has pain, some swelling and states that his toe is sticking out at an awkward angle. He denies any numbness or tingling. He states that it hurts worse when he walks on it and improves with rest. He denies any history of the same. He is otherwise well and free of complaint and denies other injury. MD complaint: foot injury Onset (ago): minute(s) Type of Injury: blunt Place: home Severity: mild Relieving factors: rest Exacerbating factors: weight bearing and movement Context: direct blow Associated symptoms: snap/pop sensation, swelling and ambulatory Other symptoms: none Treatments prior to arrival: cold therapy Related Data Home Medications Medication Instructions Recorded Confirmed bupropion HCl 150 mg 24 hr tablet, 300 mg PO tab 03/22/20 03/22/20 extended release naltrexone 50 mg tablet 50 mg PO DAILY 03/22/20 03/22/20 Previous Rx's Medication Instructions Recorded diclofenac sodium 2 gram TOP QID PRN #100 gram 07/03/19 lidocaine 1 patch TOP Q24H PRN #30 each 11/11/19 diclofenac sodium 75 mg 75 mg PO BID #180 tab 01/15/20 tablet,delayed release ondansetron 4 mg disintegrating 4 mg PO Q6-8H PRN #30 tab 01/26/20 tablet cyclobenzaprine 10 mg PO TID PRN #10 tab 03/20/20 ibuprofen 600 mg PO Q6H PRN #24 tab 03/20/20 Allergies Allergy/AdvReac Type Severity Reaction Status Date / Time No Known Drug Allergies Allergy Verified 03/22/20 12:47 Review of Systems Constitutional Constitutional: Denies chills, Denies fatigue, Denies fever(s), Denies frequent falls, Denies lethargy and Denies weakness Eyes Eyes: Denies change in vision, Denies eye discharge, Denies irritation and Denies loss of vision ENT Ears, Nose, Mouth, and Throat: Denies change in voice, Denies dizziness, Denies neck pain, Denies sore throat and Denies throat swelling Cardiovascular Cardiovascular: Denies chest pain, Denies irregular heart rhythm, Denies lightheadedness, Denies palpitations, Denies dyspnea, Denies dyspnea on exertion and Denies orthopnea Respiratory Respiratory: Denies cough, Denies dyspnea, Denies dyspnea on exertion and Denies wheezing Gastrointestinal Gastrointestinal: Denies abdominal pain, Denies change in bowel habits, Denies diarrhea, Denies nausea and Denies vomiting Musculoskeletal Musculoskeletal: Reports deformity, Reports arthralgias, Denies neck pain and Denies numbness Integumentary/Breasts Skin/Breast: Denies pruritus, Denies erythema, Denies rash and Denies wounds Neurologic Neurologic: Denies behavioral changes, Denies confusion, Denies dizziness, Denies frequent falls, Denies loss of vision, Denies numbness and Denies weakness Psychiatric Psychiatric: Denies anxiety, Denies behavioral changes, Denies confusion, Denies depression, Denies homicidal ideation and Denies suicidal ideation Endocrine Endocrine: Denies fatigue, Denies flushing and Denies palpitations Hematologic/Lymphatic Hematologic/Lymphatic: Denies easy bruising Allergic/Immunologic Allergic/Immunologic: Denies urticaria, Denies throat swelling and Denies wheezing Patient History Medical History Arthritis Constipation Leg fracture, left Pneumonia Substance abuse Social History Smoking Status: Current every day smoker Smoking Status: Current every day smoker alcohol intake frequency: holidays/special occasions only Substance Use Type: does not use Exam Narrative Exam Narrative: GEN: AOx3 and in mild distress EYES: Pupils are equal, round, and reactive to light and accommodation. Extraoccular muscles are intact bilaterally. There is no subconjunctival hemorrhage or exudate. CHEST: Lungs are clear to auscultation bilaterally and free of wheezes, rales, or rhonchi. Heart rate is regular rhythm, there are no murmurs, clicks, rubs, or gallops. There is no chest wall tenderness. ABD: Abdomen is soft and nontender. There is no guarding or rebound. Bowel sounds are normal in all 4 quadrants. There is no mass or organomegaly. EXT: R little toe with lateral deviation, closed, isolated, N/V intact. No other injury SKIN: Warm, pink, and dry. No erythema or rash Initial Vital Signs Initial Vital Signs: Vital Signs Temperature 98.1 F 04/08/20 21:06 Pulse Rate 82 04/08/20 21:06 Respiratory Rate 20 04/08/20 21:06 Blood Pressure 141/80 H 04/08/20 21:06 Pulse Oximetry 98 04/08/20 21:06 Procedures Nerve Block Nerve Block 1: Time out performed: Yes Local Anesthetic: lidocaine 1% Side: right Nerve Blocks: digital Procedure Successful: Yes Patient Tolerated Procedure: Well Complications: none Orthopedic Fracture Reduction Fracture #1: Time Out Performed: Yes Side: right Fracture Reduction Location: toe Analgesia: nerve block Technique: direct manipulation Post Reduction X-rays Demonstrate: anatomical reduction Post-reduction neuro exam: intact Post-reduction vascular exam: intact Splint Applied: Yes Patient Tolerated Procedure: Well Orthopedic Splinting/Casting Injury #1: Side: right Lower Extremity Injury Location: toe Lower Extremity Immobilizer: post-op shoe and carmen tape Post splinting neuro exam: intact Post splinting vascular exam: intact Placed by: Nursing Course Orders Ordered: ED Orders 04/08/20 21:05 XR toe RT min 2V Stat Discontinued Medications Lidocaine/Sodium Bicarbonate (Lido 1%/Sod Bicarb 8.4% (10ml) 10 Ml Syringe) 10 ml INJ NOW ONE Stop: 04/08/20 21:23 Last Admin: 04/08/20 21:31 Dose: 10 ml Documented by: Consultations Consultation #1: quick discussion with Dr. Cavazos (ortho traffic monitor specialist) who recommends attempt to reduce with splinting and follow up as needed. Vital Signs Vital signs: Vital Signs - 8 hr 04/08/20 21:06 Temperature 98.1 F Pulse Rate 82 Respiratory Rate 20 Blood Pressure 141/80 H Pulse Oximetry 98 MDM - Extremity Injury (Lower) Imaging Data Extremity x-ray #1: Radiologist's Impression: [address] [id number] ReportSigned Patient: Keshav Cortes [facility]#: [id number]: 1985Acct:[id number]/Sex: 34 / MDate of Service: 04/08/20Loc: EDAccession Number: [id number] Procedure: XR toe RT min 2V Ordering Provider: Humberto Harris D.O. PROCEDURE: XR TOE RT MIN 2V INDICATIONS: toe injury with pain TECHNIQUE: 3 views of the 5th toe(s) acquired. COMPARISON: None. FINDINGS: Bones: No dislocations. No suspicious bony lesions. There is a diagonal fracture across the midshaft of the 5th proximal phalanx with mild valgus angulation as a result Soft tissues: No suspicious soft tissue densities. IMPRESSION: Mild acute angulation abnormality at the proximal phalanx, where diurnal diaphyseal fractures present with valgus angulation. Dictated by: Peter Fitch M.D. on 04/08/2020 at 21:37 Approved by: Peter Fitch M.D. on 04/08/2020 at 21:38 Discharge Plan Departure Patient Disposition: Home Clinical Impression: Closed fracture of toe Qualifiers: Encounter type: initial encounter Toe: lesser toe Phalanx: proximal Fracture alignment: displaced Laterality: right Qualified Code(s): S92.511A - Displaced fracture of proximal phalanx of right lesser toe(s), initial encounter for closed fracture Instructions: DI for Toe Fracture Activity Restrictions/Additional Instructions: *You have been diagnosed with [right pinky toe fracture] *What to do: *Take medications as directed: Tylenol or Motrin for pain *Follow up with your primary care provider in 2-3 days, call for an appointment. Let them know you were seen in the Emergency Department and that we ask that you be seen in follow up. I have also given you contact information for the orthopedist on-call should you choose to follow up with her *Return to ER if you should have any new, worsening or concerning symptoms, such as [ numbness, tingling, fever >101F or other bothersome symptoms] Prescriptions: No Action ondansetron 4 mg tablet,disintegrating 4 mg PO Q6-8H PRN (Reason: nausea and vomiting) Qty: 30 RF: 0 diclofenac sodium 75 mg tablet,delayed release (DR/EC) 75 mg PO BID Qty: 180 RF: 1 naltrexone 50 mg tablet 50 mg PO DAILY RF: 0 bupropion HCl 150 mg tablet extended release 24 hr 300 mg PO RF: 0 diclofenac sodium 1 % gel 2 gram TOP QID PRN (Reason: pain and inflammation) Qty: 100 RF: 0 lidocaine 5 % adhesive patch,medicated 1 patch TOP Q24H PRN (Reason: pain) Qty: 30 RF: 0 cyclobenzaprine 10 mg tablet 10 mg PO TID PRN (Reason: muscle spasm) Qty: 10 RF: 0 ibuprofen 600 mg tablet 600 mg PO Q6H PRN (Reason: fever or pain) Qty: 24 RF: 0 Referrals: Rodrigo Donis MD [Primary Care Provider] - Mahnaz Cavazos MD [Physician] -
[2020-04-08 21:06] VITALS: BP 141/80; PULSE 82; RESP 20; TEMP 36.7; O2SAT 98; BMI 37.6
[2020-04-08] MEDS: LIDO 1%/SOD BICARB 8.4% (10ML) 10 ML SYRINGE INJ (21:31)
== END 2020-04-08 21:41 | disposition home or self-care (01) ==
PROVIDERS: Emergency Provider Emergency Medicine; PCP Student in an Organized Health Care Education/Training Program
DX: S92.511A Displaced fracture of proximal phalanx of right lesser toe(s), initial encounter for closed fracture (principal); W22.03XA Walked into furniture, initial encounter
CPT/HCPCS: 28515; 64450; 73660; 99283; 99284

== ENCOUNTER 2020-04-27 14:50 | Emergency (ER) | payer OTHER, MEDICAID, SELFPAY ==
[2020-04-27 14:57] VITALS: BP 161/85; PULSE 75; RESP 16; TEMP 36.4; O2SAT 97; BMI 36.2
== END 2020-04-27 15:56 | disposition left against medical advice (07) ==
PROVIDERS: Emergency Provider Emergency Medicine; PCP Student in an Organized Health Care Education/Training Program
CPT/HCPCS: 99281

== ENCOUNTER → 2020-05-24 13:56 | Outpatient (CLI) | payer OTHER, MEDICAID, SELFPAY ==
--- NOTE | 2020-05-24 13:58 | DI.RAD.S_ITS ---
PROCEDURE: XR ANKLE LT MIN 3V INDICATIONS: pain/acute onn chronic injury TECHNIQUE: 3 views of the ankle were acquired. COMPARISON: [facility], CR, XR ANKLE LT MIN 3V, 03/22/2020, 13:44. FINDINGS: Bones: No acute fractures or dislocations. Lateral compression plate and transverse screws are present. There is abnormal sclerosis and subcortical lucency involving the tibial plafond and. Slight flattening of the talar dome. Nonunited fracture fragments distal to the lateral and medial malleoli. There is chronic medial mortise widening and dystrophic calcification within the syndesmosis, stable. No suspicious bony lesions. Soft tissues: No tibiotalar joint effusion. Achilles tendon appears normal. IMPRESSION: 1. No acute changes. 2. Deformity of remote, healed trimalleolar fracture. 3. Severe degenerative changes of the tibial plafond and dystrophic calcifications surrounding the ankle. Dictated by: Allyssa Berger M.D. on 05/24/2020 at 13:35 Approved by: Allyssa Berger M.D. on 05/24/2020 at 13:37
--- NOTE | 2020-05-24 13:58 | DI.RAD.S_ITS ---
PROCEDURE: XR FOOT LT MIN 3V INDICATIONS: pain/acute on chronic injury TECHNIQUE: 3 views of the foot were acquired. COMPARISON: None. FINDINGS: Bones: No acute fractures or dislocations. Dystrophic calcifications at the ankle and fibular fixation partially imaged. No suspicious bony lesions. Soft tissues: No tibiotalar joint effusion. Achilles tendon appears normal. IMPRESSION: Intact left foot. Dictated by: Allyssa Berger M.D. on 05/24/2020 at 13:37 Approved by: Allyssa Berger M.D. on 05/24/2020 at 13:38
== END ==
PROVIDERS: PCP Student in an Organized Health Care Education/Training Program; Referring Provider Student in an Organized Health Care Education/Training Program; Visit Provider Student in an Organized Health Care Education/Training Program
DX: M25.572 Pain in left ankle and joints of left foot (principal); M79.672 Pain in left foot; M19.072 Primary osteoarthritis, left ankle and foot
CPT/HCPCS: 73610; 73630

== ENCOUNTER 2020-06-13 09:29 | Emergency (ER) | payer OTHER, MEDICAID, SELFPAY ==
[2020-06-13] VITALS (11 sets, daily range): BP systolic 127–155; BP diastolic 68–97; PULSE 58–85; RESP 18–19; TEMP 36.8; O2SAT 94–100; BMI 37.6
--- NOTE | 2020-06-13 09:47 | PC.NURSE ---
pt states he wants to stop feeling this way and have inpatient treatment. he doesn't want to think about hurting himself.
--- NOTE | 2020-06-13 09:54 | ED_ITS ---
HPI - GI Bleed <Nisa Luong MD - Last Filed: 06/14/20 12:18> General Chief complaint: GI Bleed Stated complaint: SOB, blood in stool, cough, stomache pain Time Seen by Provider: 06/13/20 09:38 Source: patient Mode of arrival: Ambulatory Limitations: no limitations History of Present Illness HPI Narrative: 35-year-old gentleman presents with a complaint that he is having ?a hard time with everything piling up?. He states that he feels like dying, his fiancee apparently recently left and he is no longer able to see the kids that they had together. He apparently regularly uses methamphetamine and find that he isn't able to function without it. He recently bought some ?very bad drugs? with the intention of injecting them and killing himself. He did inject a small amount and found that he was nauseated, dizzy, chest pain and did not use any additional methamphetamine from that stash. He states that he currently is living in an RV with lots of molds making him feel sick. States he can not work because he does not have any energy, he can not get out of bed, he does not have any purpose in life and does not want to be alive. He notes that he has some chronic left ankle pain for which he uses diclofenac and he has had bloody stools that started approximately 2 weeks ago and ended approximately 5 days ago but he continues to be significantly dizzy when standing up and reports severe reflux with dry heaves. He does not report any actual emesis or blood coming from above. He notes that he has had prior GI bleed. Regarding his psychiatric care, he is currently on Wellbutrin and sees a counselor through [facility]. Apparently talked to this counselor this morning who recommended that he come to the emergency department. He is willing to consider voluntary inpatient care if recommended. Additional problems include cough that he has had for the last 4-5 days without productivity and without fever. He has not had any COVID vaccination Related Data Home Medications Medication Instructions Recorded Confirmed bupropion HCl 150 mg 24 hr tablet, 300 mg PO tab 03/22/20 05/24/20 extended release naltrexone 50 mg tablet 50 mg PO DAILY 03/22/20 05/24/20 Previous Rx's Medication Instructions Recorded diclofenac sodium 2 gram TOP QID PRN #100 gram 07/03/19 lidocaine 1 patch TOP Q24H PRN #30 each 11/11/19 diclofenac sodium 75 mg 75 mg PO BID #180 tab 01/15/20 tablet,delayed release ondansetron 4 mg disintegrating 4 mg PO Q6-8H PRN #30 tab 01/26/20 tablet cyclobenzaprine 10 mg PO TID PRN #10 tab 03/20/20 ibuprofen 600 mg PO Q6H PRN #24 tab 03/20/20 Allergies Allergy/AdvReac Type Severity Reaction Status Date / Time No Known Drug Allergies Allergy Verified 03/22/20 12:47 Review of Systems <Nisa Luong MD - Last Filed: 06/14/20 12:18> Review of Systems Narrative: Remainder of complete review of systems is otherwise unremarkable except for that included in the HPI. Patient History <Nisa Luong MD - Last Filed: 06/14/20 12:18> Medical History Ankle pain, left Arthritis Constipation Depression Obesity (BMI 35.0-39.9 without comorbidity) PTSD (post-traumatic stress disorder) Substance abuse Social History Smoking Status: Current every day smoker Smoking Status: Current every day smoker alcohol intake frequency: holidays/special occasions only Substance Use Type: does not use Exam <Nisa Luong MD - Last Filed: 06/14/20 12:18> Narrative Exam Narrative: General: Distraught and disheveled but Able to give a complete and coherent history. Well-nourished well-developed HEENT: Moist mucous membranes, normal sclera with reactive pupils, Neck: No JVD, supple Respiratory: Lungs are clear to auscultation, no wheezing no rales no rhonchi. Full and symmetrical air movement Cardiac: Regular rate and rhythm no murmurs no bruits Abdomen: Soft, mild tenderness in the left lower quadrant without rebound or guarding, good bowel tones, no flank pain Skin: Warm and dry, no rashes Neurologic: Grossly neurologically intact with no obvious asymmetries or abnormalities Extremities: No trauma, well perfused Psych: Distraught, tearful, normal thought content and fluent speech, Cooperative Initial Vital Signs Initial Vital Signs: Vital Signs Pulse Rate 85 06/13/20 09:37 Pulse Oximetry 99 06/13/20 09:37 <Rebecca Henriquez DO - Last Filed: 06/14/20 21:22> Initial Vital Signs Initial Vital Signs: Vital Signs Pulse Rate 85 06/13/20 09:37 Pulse Oximetry 99 06/13/20 09:37 Course <Nisa Luong MD - Last Filed: 06/14/20 12:18> Orders Ordered: Discontinued Medications Acetaminophen (Acetaminophen 325 Mg Tablet) 650 mg PO NOW ONE Stop: 06/13/20 14:28 Last Admin: 06/13/20 14:37 Dose: 650 mg Documented by: HOMERO Sodium Chloride (Normal Saline 0.9%) 1,000 mls @ 1,000 mls/hr IV BOLUS PRN PRN Reason: Fluid replacement Last Infusion: 06/13/20 12:39 Dose: 0 mls/hr Documented by: Admin: 06/13/20 10:21 Dose: 1,000 mls/hr Documented by: ASIM Ibuprofen (Ibuprofen 400 Mg Tablet) 400 mg PO NOW ONE Stop: 06/13/20 14:28 Last Admin: 06/13/20 14:37 Dose: 400 mg Documented by: HOMERO Ketorolac Tromethamine (Ketorolac 30 Mg/Ml Vial) 30 mg IM NOW ONE Stop: 06/13/20 21:16 Last Admin: 06/13/20 21:20 Dose: 30 mg Documented by: HOMERO Lorazepam (Lorazepam 0.5 Mg Tablet) 1 mg PO NOW ONE Stop: 06/13/20 19:33 Last Admin: 06/13/20 19:36 Dose: 1 mg Documented by: KALYN Lorazepam (Lorazepam 0.5 Mg Tablet) 1 mg PO NOW ONE Stop: 06/13/20 20:24 Last Admin: 06/13/20 20:29 Dose: 1 mg Documented by: HOMERO Nicotine (Nicotine 21 Mg Patch) 21 mg TOP NOW ONE Stop: 06/13/20 18:52 Last Admin: 06/13/20 18:56 Dose: 21 mg Documented by: HOMERO Olanzapine (Olanzapine Odt 10 Mg Tab) 10 mg PO NOW ONE Stop: 06/13/20 22:39 Last Admin: 06/13/20 22:45 Dose: 10 mg Documented by: HOMERO Ondansetron HCl (Ondansetron 4 Mg/2 Ml Inj) 4 mg IV NOW ONE Stop: 06/13/20 10:13 Last Admin: 06/13/20 10:21 Dose: 4 mg Documented by: ASIM Pantoprazole Sodium (Pantoprazole 40 Mg Vial) 40 mg IV NOW ONE Stop: 06/13/20 10:13 Last Admin: 06/13/20 10:21 Dose: 40 mg Documented by: ASIM Vital Signs Vital signs: Vital Signs - 8 hr 06/14/20 05:40 Pulse Rate 66 Respiratory Rate 16 Blood Pressure 110/49 L Pulse Oximetry 98 <Rebecca Henriquez DO - Last Filed: 06/14/20 21:22> Orders Ordered: Discontinued Medications Acetaminophen (Acetaminophen 325 Mg Tablet) 650 mg PO NOW ONE Stop: 06/13/20 14:28 Last Admin: 06/13/20 14:37 Dose: 650 mg Documented by: HOMERO Sodium Chloride (Normal Saline 0.9%) 1,000 mls @ 1,000 mls/hr IV BOLUS PRN PRN Reason: Fluid replacement Last Infusion: 06/13/20 12:39 Dose: 0 mls/hr Documented by: Admin: 06/13/20 10:21 Dose: 1,000 mls/hr Documented by: ASIM Ibuprofen (Ibuprofen 400 Mg Tablet) 400 mg PO NOW ONE Stop: 06/13/20 14:28 Last Admin: 06/13/20 14:37 Dose: 400 mg Documented by: HOMERO Ketorolac Tromethamine (Ketorolac 30 Mg/Ml Vial) 30 mg IM NOW ONE Stop: 06/13/20 21:16 Last Admin: 06/13/20 21:20 Dose: 30 mg Documented by: HOMERO Lorazepam (Lorazepam 0.5 Mg Tablet) 1 mg PO NOW ONE Stop: 06/13/20 19:33 Last Admin: 06/13/20 19:36 Dose: 1 mg Documented by: KALYN Lorazepam (Lorazepam 0.5 Mg Tablet) 1 mg PO NOW ONE Stop: 06/13/20 20:24 Last Admin: 06/13/20 20:29 Dose: 1 mg Documented by: HOMERO Nicotine (Nicotine 21 Mg Patch) 21 mg TOP NOW ONE Stop: 06/13/20 18:52 Last Admin: 06/13/20 18:56 Dose: 21 mg Documented by: HOMERO Olanzapine (Olanzapine Odt 10 Mg Tab) 10 mg PO NOW ONE Stop: 06/13/20 22:39 Last Admin: 06/13/20 22:45 Dose: 10 mg Documented by: HOMERO Ondansetron HCl (Ondansetron 4 Mg/2 Ml Inj) 4 mg IV NOW ONE Stop: 06/13/20 10:13 Last Admin: 06/13/20 10:21 Dose: 4 mg Documented by: ASIM Pantoprazole Sodium (Pantoprazole 40 Mg Vial) 40 mg IV NOW ONE Stop: 06/13/20 10:13 Last Admin: 06/13/20 10:21 Dose: 40 mg Documented by: ASIM Vital Signs Vital signs: Vital Signs - 8 hr 06/14/20 05:40 Pulse Rate 66 Respiratory Rate 16 Blood Pressure 110/49 L Pulse Oximetry 98 MDM - GI Bleed <Nisa Luong MD - Last Filed: 06/14/20 12:18> Medical Records Attestation: I reviewed the patient's medical records. Lab Data Attestation: I reviewed the patient's lab results. Result diagrams: 06/14/20 00:35 06/13/20 10:27 Labs: Lab Results 06/13/20 06/13/20 06/13/20 Range/Units 10:27 10:27 10:27 WBC 10.6 (4.5-11.0) X10^3/uL RBC 4.76 (4.5-5.9) X10^6/uL Hgb 14.8 (13.5-17.5) g/dL Hct 43.7 (41-53) % MCV 91.8 (80-100) fL MCH 31.1 (26-34) PG MCHC 33.9 (30-36) % RDW 13.2 (11.6-14.8) % Plt Count 269 (150-400) X10^3/uL Neut % (Auto) 67.4 (50-75) % Lymph % (Auto) 22.7 L (25-40) % [place] % (Auto) 6.9 (3-14) % Eos % (Auto) 2.0 (2-4) % Baso % (Auto) 1.0 (0-2) % Neut # (Auto) 7200 H (5378-6956) /uL Lymph # (Auto) 2400 (7109-6435) /uL [place] # (Auto) 700 (0-900) /uL Eos # (Auto) 200 (0-450) /uL Baso # (Auto) 100 (0-100) /uL PT 11.2 (10.1-12.7) SECONDS INR 1.0 (0.9-1.3) APTT 30 (26.4-36.2) SECONDS Sodium 139 (137-145) mmol/L Potassium 3.9 (3.4-5.1) mmol/L Chloride 104 (98-107) mmol/L Carbon Dioxide 26 (22-32) mmol/L BUN 13 (9-20) mg/dL Creatinine 0.90 (0.66-1.25) mg/dL Estimated GFR > 60.0 (>60) mL/min BUN/Creatinine Ratio 14.4 (6-22) Glucose 134 H (70-100) mg/dL Calcium 9.1 (8.4-10.2) mg/dL Magnesium 2.0 (1.6-2.3) mg/dL Total Bilirubin 0.3 (0.2-1.3) mg/dL AST 31 (17-59) IU/L ALT 40 (<50) IU/L Alkaline Phosphatase 86 (38-126) U/L Total Creatine Kinase (55-170) U/L Troponin I (0.01-0.034) ng/mL Total Protein 7.1 (6.3-8.2) g/dL Albumin 4.2 (3.5-5.0) g/dL Globulin 2.9 (1.7-4.1) g/dL Albumin/Globulin Ratio 1.4 (1.0-2.8) Lipase 287 (23-300) U/L TSH (0.47-4.68) uIU/mL Urine Color Urine Appearance Urine pH (4.5-8.0) Ur Specific [place] (1.000-1.035) Urine Protein (Negative) Urine Glucose (UA) (Negative) g/dL Urine Ketones (NEGATIVE) Urine Occult Blood (Negative) Urine Nitrate (Negative) Urine Bilirubin (NEGATIVE) Urine Urobilinogen (0.2) E.U./dL Ur Leukocyte Esterase (NEGATIVE) Urine RBC (0-5/HPF) Urine WBC (0-5/HPF) Urine Bacteria (None) Ur Culture Indicated? Micro UA Comment U Opiates 300ng/mL cut (Negative) Ur Oxycodone Screen (Negative) Urine Methadone Screen (Negative) Ur Barbiturates Screen (Negative) U Tricyclic Antidepress (Negative) Ur Phencyclidine Scrn (Negative) Ur Amphetamines Screen (Negative) U Methamphetamines Scrn (Negative) Ur MDMA Scrn (Ecstasy) (Negative) U Benzodiazepines Scrn (Negative) Urine Cocaine Screen (Negative) U Marijuana (THC) Screen (Negative) SARS-CoV-2 (PCR) (Negative) Blood Type Antibody Screen 06/13/20 06/13/20 06/13/20 Range/Units 10:27 10:27 10:27 WBC (4.5-11.0) X10^3/uL RBC (4.5-5.9) X10^6/uL Hgb (13.5-17.5) g/dL Hct (41-53) % MCV (80-100) fL MCH (26-34) PG MCHC (30-36) % RDW (11.6-14.8) % Plt Count (150-400) X10^3/uL Neut % (Auto) (50-75) % Lymph % (Auto) (25-40) % [place] % (Auto) (3-14) % Eos % (Auto) (2-4) % Baso % (Auto) (0-2) % Neut # (Auto) (0697-3049) /uL Lymph # (Auto) (2950-2769) /uL [place] # (Auto) (0-900) /uL Eos # (Auto) (0-450) /uL Baso # (Auto) (0-100) /uL PT (10.1-12.7) SECONDS INR (0.9-1.3) APTT (26.4-36.2) SECONDS Sodium (137-145) mmol/L Potassium (3.4-5.1) mmol/L Chloride (98-107) mmol/L Carbon Dioxide (22-32) mmol/L BUN (9-20) mg/dL Creatinine (0.66-1.25) mg/dL Estimated GFR (>60) mL/min BUN/Creatinine Ratio (6-22) Glucose (70-100) mg/dL Calcium (8.4-10.2) mg/dL Magnesium (1.6-2.3) mg/dL Total Bilirubin (0.2-1.3) mg/dL AST (17-59) IU/L ALT (<50) IU/L Alkaline Phosphatase (38-126) U/L Total Creatine Kinase (55-170) U/L Troponin I < 0.012 (0.01-0.034) ng/mL Total Protein (6.3-8.2) g/dL Albumin (3.5-5.0) g/dL Globulin (1.7-4.1) g/dL Albumin/Globulin Ratio (1.0-2.8) Lipase (23-300) U/L TSH (0.47-4.68) uIU/mL Urine Color Yellow Urine Appearance Clear Urine pH 6.5 (4.5-8.0) Ur Specific [place] 1.020 (1.000-1.035) Urine Protein Negative (Negative) Urine Glucose (UA) Trace H (Negative) g/dL Urine Ketones Negative (NEGATIVE) Urine Occult Blood Negative (Negative) Urine Nitrate Negative (Negative) Urine Bilirubin Negative (NEGATIVE) Urine Urobilinogen 0.2 (0.2) E.U./dL Ur Leukocyte Esterase Negative (NEGATIVE) Urine RBC None seen (0-5/HPF) Urine WBC None seen (0-5/HPF) Urine Bacteria None seen (None) Ur Culture Indicated? Cult not indicated Micro UA Comment Microscopic normal U Opiates 300ng/mL cut (Negative) Ur Oxycodone Screen (Negative) Urine Methadone Screen (Negative) Ur Barbiturates Screen (Negative) U Tricyclic Antidepress (Negative) Ur Phencyclidine Scrn (Negative) Ur Amphetamines Screen (Negative) U Methamphetamines Scrn (Negative) Ur MDMA Scrn (Ecstasy) (Negative) U Benzodiazepines Scrn (Negative) Urine Cocaine Screen (Negative) U Marijuana (THC) Screen (Negative) SARS-CoV-2 (PCR) (Negative) Blood Type B Negative Antibody Screen Negative 04/29/21 04/29/21 04/30/21 Range/Units 10:27 10:27 00:35 WBC (4.5-11.0) X10^3/uL RBC (4.5-5.9) X10^6/uL Hgb 13.1 L (13.5-17.5) g/dL Hct 40.0 L (41-53) % MCV (80-100) fL MCH (26-34) PG MCHC (30-36) % RDW (11.6-14.8) % Plt Count (150-400) X10^3/uL Neut % (Auto) (50-75) % Lymph % (Auto) (25-40) % [place] % (Auto) (3-14) % Eos % (Auto) (2-4) % Baso % (Auto) (0-2) % Neut # (Auto) (2061-2082) /uL Lymph # (Auto) (1527-1577) /uL [place] # (Auto) (0-900) /uL Eos # (Auto) (0-450) /uL Baso # (Auto) (0-100) /uL PT (10.1-12.7) SECONDS INR (0.9-1.3) APTT (26.4-36.2) SECONDS Sodium (137-145) mmol/L Potassium (3.4-5.1) mmol/L Chloride (98-107) mmol/L Carbon Dioxide (22-32) mmol/L BUN (9-20) mg/dL Creatinine (0.66-1.25) mg/dL Estimated GFR (>60) mL/min BUN/Creatinine Ratio (6-22) Glucose (70-100) mg/dL Calcium (8.4-10.2) mg/dL Magnesium (1.6-2.3) mg/dL Total Bilirubin (0.2-1.3) mg/dL AST (17-59) IU/L ALT (<50) IU/L Alkaline Phosphatase (38-126) U/L Total Creatine Kinase (55-170) U/L Troponin I (0.01-0.034) ng/mL Total Protein (6.3-8.2) g/dL Albumin (3.5-5.0) g/dL Globulin (1.7-4.1) g/dL Albumin/Globulin Ratio (1.0-2.8) Lipase (23-300) U/L TSH (0.47-4.68) uIU/mL Urine Color Urine Appearance Urine pH (4.5-8.0) Ur Specific [place] (1.000-1.035) Urine Protein (Negative) Urine Glucose (UA) (Negative) g/dL Urine Ketones (NEGATIVE) Urine Occult Blood (Negative) Urine Nitrate (Negative) Urine Bilirubin (NEGATIVE) Urine Urobilinogen (0.2) E.U./dL Ur Leukocyte Esterase (NEGATIVE) Urine RBC (0-5/HPF) Urine WBC (0-5/HPF) Urine Bacteria (None) Ur Culture Indicated? Micro UA Comment U Opiates 300ng/mL cut Negative (Negative) Ur Oxycodone Screen Negative (Negative) Urine Methadone Screen Negative (Negative) Ur Barbiturates Screen Negative (Negative) U Tricyclic Antidepress Negative (Negative) Ur Phencyclidine Scrn Negative (Negative) Ur Amphetamines Screen Negative (Negative) U Methamphetamines Scrn Positive H (Negative) Ur MDMA Scrn (Ecstasy) Negative (Negative) U Benzodiazepines Scrn Negative (Negative) Urine Cocaine Screen Negative (Negative) U Marijuana (THC) Screen Negative (Negative) SARS-CoV-2 (PCR) Negative (Negative) Blood Type Antibody Screen 06/14/20 06/14/20 Range/Units 00:35 00:35 WBC (4.5-11.0) X10^3/uL RBC (4.5-5.9) X10^6/uL Hgb (13.5-17.5) g/dL Hct (41-53) % MCV (80-100) fL MCH (26-34) PG MCHC (30-36) % RDW (11.6-14.8) % Plt Count (150-400) X10^3/uL Neut % (Auto) (50-75) % Lymph % (Auto) (25-40) % [place] % (Auto) (3-14) % Eos % (Auto) (2-4) % Baso % (Auto) (0-2) % Neut # (Auto) (0425-4559) /uL Lymph # (Auto) (5246-9988) /uL [place] # (Auto) (0-900) /uL Eos # (Auto) (0-450) /uL Baso # (Auto) (0-100) /uL PT (10.1-12.7) SECONDS INR (0.9-1.3) APTT (26.4-36.2) SECONDS Sodium (137-145) mmol/L Potassium (3.4-5.1) mmol/L Chloride (98-107) mmol/L Carbon Dioxide (22-32) mmol/L BUN (9-20) mg/dL Creatinine (0.66-1.25) mg/dL Estimated GFR (>60) mL/min BUN/Creatinine Ratio (6-22) Glucose (70-100) mg/dL Calcium (8.4-10.2) mg/dL Magnesium 1.9 (1.6-2.3) mg/dL Total Bilirubin (0.2-1.3) mg/dL AST (17-59) IU/L ALT (<50) IU/L Alkaline Phosphatase (38-126) U/L Total Creatine Kinase 62 (55-170) U/L Troponin I (0.01-0.034) ng/mL Total Protein (6.3-8.2) g/dL Albumin (3.5-5.0) g/dL Globulin (1.7-4.1) g/dL Albumin/Globulin Ratio (1.0-2.8) Lipase (23-300) U/L TSH 2.15 (0.47-4.68) uIU/mL Urine Color Urine Appearance Urine pH (4.5-8.0) Ur Specific [place] (1.000-1.035) Urine Protein (Negative) Urine Glucose (UA) (Negative) g/dL Urine Ketones (NEGATIVE) Urine Occult Blood (Negative) Urine Nitrate (Negative) Urine Bilirubin (NEGATIVE) Urine Urobilinogen (0.2) E.U./dL Ur Leukocyte Esterase (NEGATIVE) Urine RBC (0-5/HPF) Urine WBC (0-5/HPF) Urine Bacteria (None) Ur Culture Indicated? Micro UA Comment U Opiates 300ng/mL cut (Negative) Ur Oxycodone Screen (Negative) Urine Methadone Screen (Negative) Ur Barbiturates Screen (Negative) U Tricyclic Antidepress (Negative) Ur Phencyclidine Scrn (Negative) Ur Amphetamines Screen (Negative) U Methamphetamines Scrn (Negative) Ur MDMA Scrn (Ecstasy) (Negative) U Benzodiazepines Scrn (Negative) Urine Cocaine Screen (Negative) U Marijuana (THC) Screen (Negative) SARS-CoV-2 (PCR) (Negative) Blood Type Antibody Screen Imaging Data Chest x-ray: Radiologist's Impression: FINDINGS: Surgical changes and devices: None. Lungs and pleura: Lungs are clear. No pleural effusions or pneumothorax. Mediastinum: Mediastinal contours appear normal. Heart size is normal. Bones and chest wall: No suspicious bony lesions. Overlying soft tissues appear unremarkable. IMPRESSION: 1. No acute cardiopulmonary disease. Dictated by: Elan Rouse M.D. on 06/13/2020 at 10:33 ECG Data Attestation: I personally reviewed and interpreted this ECG as follows: Interpretation: Sinus rhythm at a rate of 71 Normal axis, normal intervals No acute ischemic changes MDM Narrative Medical decision making narrative: 35-year-old gentleman presents with complaints of red blood in his stool 2 weeks ago that resolved 5 days ago, dizziness and generally feeling unwell all in the setting of worsening depression with significant suicidal ideation. He does have the history of methamphetamine abuse. He apparently bought some ?very bad meth? and was planning to inject himself in order to kill himself and chose to talk to his counselor at [facility] who recommended that he come to the emergency department for further evaluation. At this time, there is no evidence of significant anemia or ongoing GI blood loss. Labs are reassuring, he is COVID negative. He is medically cleared for psychiatric evaluation. He is willing to consider voluntary inpatient treatment for his significant depression with suicidal ideation. 815am patient slept well overnight after taking Zyprexa. He still would prefer to go to [facility] however they are concerned because of his initial complaint of dizziness. The dizziness has resolved he has no evidence of GI bleed however they were unwilling to reconsider. [facility] bed [facility] however patient did not want to go there because they would not allow smoking, narcotics or benzodiazepines. I did explain to him that this is going to be the baseline recommendations for all of the psychiatric facilities. This morning he states he is still interested in pursuing voluntary admission to help with his acute situational distress, depression, situational anxiety, PTSD and suicidal ideation. Will continue to work on bed availability. Given his clinical stability now for over 24 hours with resolved dizziness and no evidence of GI bleeding or acute anemia will talk to [facility] again and see if they might be willing to reconsider taking this gentleman on a voluntary basis. 1215 patient has been accepted to [facility]. [facility] transport has been arranged. He remains quite sleepy from the Zyprexa given last night and is also calm and cooperative. <Rebecca Henriquez, DO - Last Filed: 06/14/20 21:22> Lab Data Labs: Lab Results 06/13/20 06/13/20 06/13/20 Range/Units 10:27 10:27 10:27 WBC 10.6 (4.5-11.0) X10^3/uL RBC 4.76 (4.5-5.9) X10^6/uL Hgb 14.8 (13.5-17.5) g/dL Hct 43.7 (41-53) % MCV 91.8 (80-100) fL MCH 31.1 (26-34) PG MCHC 33.9 (30-36) % RDW 13.2 (11.6-14.8) % Plt Count 269 (150-400) X10^3/uL Neut % (Auto) 67.4 (50-75) % Lymph % (Auto) 22.7 L (25-40) % [place] % (Auto) 6.9 (3-14) % Eos % (Auto) 2.0 (2-4) % Baso % (Auto) 1.0 (0-2) % Neut # (Auto) 7200 H (7660-0885) /uL Lymph # (Auto) 2400 (4857-1097) /uL [place] # (Auto) 700 (0-900) /uL Eos # (Auto) 200 (0-450) /uL Baso # (Auto) 100 (0-100) /uL PT 11.2 (10.1-12.7) SECONDS INR 1.0 (0.9-1.3) APTT 30 (26.4-36.2) SECONDS Sodium 139 (137-145) mmol/L Potassium 3.9 (3.4-5.1) mmol/L Chloride 104 (98-107) mmol/L Carbon Dioxide 26 (22-32) mmol/L BUN 13 (9-20) mg/dL Creatinine 0.90 (0.66-1.25) mg/dL Estimated GFR > 60.0 (>60) mL/min BUN/Creatinine Ratio 14.4 (6-22) Glucose 134 H (70-100) mg/dL Calcium 9.1 (8.4-10.2) mg/dL Magnesium 2.0 (1.6-2.3) mg/dL Total Bilirubin 0.3 (0.2-1.3) mg/dL AST 31 (17-59) IU/L ALT 40 (<50) IU/L Alkaline Phosphatase 86 (38-126) U/L Total Creatine Kinase (55-170) U/L Troponin I (0.01-0.034) ng/mL Total Protein 7.1 (6.3-8.2) g/dL Albumin 4.2 (3.5-5.0) g/dL Globulin 2.9 (1.7-4.1) g/dL Albumin/Globulin Ratio 1.4 (1.0-2.8) Lipase 287 (23-300) U/L TSH (0.47-4.68) uIU/mL Urine Color Urine Appearance Urine pH (4.5-8.0) Ur Specific [place] (1.000-1.035) Urine Protein (Negative) Urine Glucose (UA) (Negative) g/dL Urine Ketones (NEGATIVE) Urine Occult Blood (Negative) Urine Nitrate (Negative) Urine Bilirubin (NEGATIVE) Urine Urobilinogen (0.2) E.U./dL Ur Leukocyte Esterase (NEGATIVE) Urine RBC (0-5/HPF) Urine WBC (0-5/HPF) Urine Bacteria (None) Ur Culture Indicated? Micro UA Comment U Opiates 300ng/mL cut (Negative) Ur Oxycodone Screen (Negative) Urine Methadone Screen (Negative) Ur Barbiturates Screen (Negative) U Tricyclic Antidepress (Negative) Ur Phencyclidine Scrn (Negative) Ur Amphetamines Screen (Negative) U Methamphetamines Scrn (Negative) Ur MDMA Scrn (Ecstasy) (Negative) U Benzodiazepines Scrn (Negative) Urine Cocaine Screen (Negative) U Marijuana (THC) Screen (Negative) SARS-CoV-2 (PCR) (Negative) Blood Type Antibody Screen 06/13/20 06/13/20 06/13/20 Range/Units 10:27 10:27 10:27 WBC (4.5-11.0) X10^3/uL RBC (4.5-5.9) X10^6/uL Hgb (13.5-17.5) g/dL Hct (41-53) % MCV (80-100) fL MCH (26-34) PG MCHC (30-36) % RDW (11.6-14.8) % Plt Count (150-400) X10^3/uL Neut % (Auto) (50-75) % Lymph % (Auto) (25-40) % [place] % (Auto) (3-14) % Eos % (Auto) (2-4) % Baso % (Auto) (0-2) % Neut # (Auto) (4164-5783) /uL Lymph # (Auto) (5025-5736) /uL [place] # (Auto) (0-900) /uL Eos # (Auto) (0-450) /uL Baso # (Auto) (0-100) /uL PT (10.1-12.7) SECONDS INR (0.9-1.3) APTT (26.4-36.2) SECONDS Sodium (137-145) mmol/L Potassium (3.4-5.1) mmol/L Chloride (98-107) mmol/L Carbon Dioxide (22-32) mmol/L BUN (9-20) mg/dL Creatinine (0.66-1.25) mg/dL Estimated GFR (>60) mL/min BUN/Creatinine Ratio (6-22) Glucose (70-100) mg/dL Calcium (8.4-10.2) mg/dL Magnesium (1.6-2.3) mg/dL Total Bilirubin (0.2-1.3) mg/dL AST (17-59) IU/L ALT (<50) IU/L Alkaline Phosphatase (38-126) U/L Total Creatine Kinase (55-170) U/L Troponin I < 0.012 (0.01-0.034) ng/mL Total Protein (6.3-8.2) g/dL Albumin (3.5-5.0) g/dL Globulin (1.7-4.1) g/dL Albumin/Globulin Ratio (1.0-2.8) Lipase (23-300) U/L TSH (0.47-4.68) uIU/mL Urine Color Yellow Urine Appearance Clear Urine pH 6.5 (4.5-8.0) Ur Specific [place] 1.020 (1.000-1.035) Urine Protein Negative (Negative) Urine Glucose (UA) Trace H (Negative) g/dL Urine Ketones Negative (NEGATIVE) Urine Occult Blood Negative (Negative) Urine Nitrate Negative (Negative) Urine Bilirubin Negative (NEGATIVE) Urine Urobilinogen 0.2 (0.2) E.U./dL Ur Leukocyte Esterase Negative (NEGATIVE) Urine RBC None seen (0-5/HPF) Urine WBC None seen (0-5/HPF) Urine Bacteria None seen (None) Ur Culture Indicated? Cult not indicated Micro UA Comment Microscopic normal U Opiates 300ng/mL cut (Negative) Ur Oxycodone Screen (Negative) Urine Methadone Screen (Negative) Ur Barbiturates Screen (Negative) U Tricyclic Antidepress (Negative) Ur Phencyclidine Scrn (Negative) Ur Amphetamines Screen (Negative) U Methamphetamines Scrn (Negative) Ur MDMA Scrn (Ecstasy) (Negative) U Benzodiazepines Scrn (Negative) Urine Cocaine Screen (Negative) U Marijuana (THC) Screen (Negative) SARS-CoV-2 (PCR) (Negative) Blood Type B Negative Antibody Screen Negative 06/13/20 06/13/20 06/14/20 Range/Units 10:27 10:27 00:35 WBC (4.5-11.0) X10^3/uL RBC (4.5-5.9) X10^6/uL Hgb 13.1 L (13.5-17.5) g/dL Hct 40.0 L (41-53) % MCV (80-100) fL MCH (26-34) PG MCHC (30-36) % RDW (11.6-14.8) % Plt Count (150-400) X10^3/uL Neut % (Auto) (50-75) % Lymph % (Auto) (25-40) % [place] % (Auto) (3-14) % Eos % (Auto) (2-4) % Baso % (Auto) (0-2) % Neut # (Auto) (4866-7653) /uL Lymph # (Auto) (4552-7231) /uL [place] # (Auto) (0-900) /uL Eos # (Auto) (0-450) /uL Baso # (Auto) (0-100) /uL PT (10.1-12.7) SECONDS INR (0.9-1.3) APTT (26.4-36.2) SECONDS Sodium (137-145) mmol/L Potassium (3.4-5.1) mmol/L Chloride (98-107) mmol/L Carbon Dioxide (22-32) mmol/L BUN (9-20) mg/dL Creatinine (0.66-1.25) mg/dL Estimated GFR (>60) mL/min BUN/Creatinine Ratio (6-22) Glucose (70-100) mg/dL Calcium (8.4-10.2) mg/dL Magnesium (1.6-2.3) mg/dL Total Bilirubin (0.2-1.3) mg/dL AST (17-59) IU/L ALT (<50) IU/L Alkaline Phosphatase (38-126) U/L Total Creatine Kinase (55-170) U/L Troponin I (0.01-0.034) ng/mL Total Protein (6.3-8.2) g/dL Albumin (3.5-5.0) g/dL Globulin (1.7-4.1) g/dL Albumin/Globulin Ratio (1.0-2.8) Lipase (23-300) U/L TSH (0.47-4.68) uIU/mL Urine Color Urine Appearance Urine pH (4.5-8.0) Ur Specific [place] (1.000-1.035) Urine Protein (Negative) Urine Glucose (UA) (Negative) g/dL Urine Ketones (NEGATIVE) Urine Occult Blood (Negative) Urine Nitrate (Negative) Urine Bilirubin (NEGATIVE) Urine Urobilinogen (0.2) E.U./dL Ur Leukocyte Esterase (NEGATIVE) Urine RBC (0-5/HPF) Urine WBC (0-5/HPF) Urine Bacteria (None) Ur Culture Indicated? Micro UA Comment U Opiates 300ng/mL cut Negative (Negative) Ur Oxycodone Screen Negative (Negative) Urine Methadone Screen Negative (Negative) Ur Barbiturates Screen Negative (Negative) U Tricyclic Antidepress Negative (Negative) Ur Phencyclidine Scrn Negative (Negative) Ur Amphetamines Screen Negative (Negative) U Methamphetamines Scrn Positive H (Negative) Ur MDMA Scrn (Ecstasy) Negative (Negative) U Benzodiazepines Scrn Negative (Negative) Urine Cocaine Screen Negative (Negative) U Marijuana (THC) Screen Negative (Negative) SARS-CoV-2 (PCR) Negative (Negative) Blood Type Antibody Screen 06/14/20 06/14/20 Range/Units 00:35 00:35 WBC (4.5-11.0) X10^3/uL RBC (4.5-5.9) X10^6/uL Hgb (13.5-17.5) g/dL Hct (41-53) % MCV (80-100) fL MCH (26-34) PG MCHC (30-36) % RDW (11.6-14.8) % Plt Count (150-400) X10^3/uL Neut % (Auto) (50-75) % Lymph % (Auto) (25-40) % [place] % (Auto) (3-14) % Eos % (Auto) (2-4) % Baso % (Auto) (0-2) % Neut # (Auto) (4851-5162) /uL Lymph # (Auto) (4695-3964) /uL [place] # (Auto) (0-900) /uL Eos # (Auto) (0-450) /uL Baso # (Auto) (0-100) /uL PT (10.1-12.7) SECONDS INR (0.9-1.3) APTT (26.4-36.2) SECONDS Sodium (137-145) mmol/L Potassium (3.4-5.1) mmol/L Chloride (98-107) mmol/L Carbon Dioxide (22-32) mmol/L BUN (9-20) mg/dL Creatinine (0.66-1.25) mg/dL Estimated GFR (>60) mL/min BUN/Creatinine Ratio (6-22) Glucose (70-100) mg/dL Calcium (8.4-10.2) mg/dL Magnesium 1.9 (1.6-2.3) mg/dL Total Bilirubin (0.2-1.3) mg/dL AST (17-59) IU/L ALT (<50) IU/L Alkaline Phosphatase (38-126) U/L Total Creatine Kinase 62 (55-170) U/L Troponin I (0.01-0.034) ng/mL Total Protein (6.3-8.2) g/dL Albumin (3.5-5.0) g/dL Globulin (1.7-4.1) g/dL Albumin/Globulin Ratio (1.0-2.8) Lipase (23-300) U/L TSH 2.15 (0.47-4.68) uIU/mL Urine Color Urine Appearance Urine pH (4.5-8.0) Ur Specific [place] (1.000-1.035) Urine Protein (Negative) Urine Glucose (UA) (Negative) g/dL Urine Ketones (NEGATIVE) Urine Occult Blood (Negative) Urine Nitrate (Negative) Urine Bilirubin (NEGATIVE) Urine Urobilinogen (0.2) E.U./dL Ur Leukocyte Esterase (NEGATIVE) Urine RBC (0-5/HPF) Urine WBC (0-5/HPF) Urine Bacteria (None) Ur Culture Indicated? Micro UA Comment U Opiates 300ng/mL cut (Negative) Ur Oxycodone Screen (Negative) Urine Methadone Screen (Negative) Ur Barbiturates Screen (Negative) U Tricyclic Antidepress (Negative) Ur Phencyclidine Scrn (Negative) Ur Amphetamines Screen (Negative) U Methamphetamines Scrn (Negative) Ur MDMA Scrn (Ecstasy) (Negative) U Benzodiazepines Scrn (Negative) Urine Cocaine Screen (Negative) U Marijuana (THC) Screen (Negative) SARS-CoV-2 (PCR) (Negative) Blood Type Antibody Screen [facility] Narrative Medical decision making narrative: Patient signed out to me by Dr. Epps currently awaiting placement at [facility]. He is voluntary with suicidal ideations and methamphetamine abuse. He has been up and ambulatory to the restroom multiple times with a steady gait although he is getting quite anxious. He has received a few doses of Ativan which have helped only slightly. He is finally agreeable to take possibly like Zyprexa to help him sleep. Hemoglobin hematocrit are stable there is no evidence of significant anemia for ongoing blood loss at this time on outpatient follow-up for possible GI bleeding is recommended. He does not need to be admitted or evaluated in the hospital for reported GI bleeding. At this time he remains medically cleared. 12:15am I spoke with [facility] personally they are refusing him from [facility] because he complained of rectal bleeding 2 weeks ago but does not continue to have rectal bleeding and is hemodynamically stable. They then declined him because he reported dizziness. Requested to speak with their refusing physician Dr. Walton who refused to speak with me, he will never be accepted at [facility]. Patient has been accepted [facility] however he does not want to go there. Although he is still groggy from the Zyprexa. Signed out to Dr. Epps Discharge Plan Departure Patient Disposition: Xfer Psychiatric Hosp Clinical Impression: Depression with suicidal ideation Referrals: Rodrigo Donis MD [Primary Care Provider] -
--- NOTE | 2020-06-13 10:13 | DI.RAD.S_ITS ---
PROCEDURE: XR CHEST 1V INDICATIONS: cough TECHNIQUE: One view of the chest was acquired. COMPARISON: [facility], CR, XR CHEST 1 VIEW, 11/14/2017, 21:42. FINDINGS: Surgical changes and devices: None. Lungs and pleura: Lungs are clear. No pleural effusions or pneumothorax. Mediastinum: Mediastinal contours appear normal. Heart size is normal. Bones and chest wall: No suspicious bony lesions. Overlying soft tissues appear unremarkable. IMPRESSION: 1. No acute cardiopulmonary disease. Dictated by: Elan Rouse M.D. on 06/13/2020 at 10:33 Approved by: Elan Rouse M.D. on 06/13/2020 at 10:34
[2020-06-13] MEDS: PANTOPRAZOLE 40 MG VIAL IV (10:21)
[2020-06-13] MEDS: ONDANSETRON 4 MG/2 ML INJ IV (10:21)
[2020-06-13] MEDS: SODIUM CHLORIDE 0.9% 1,000 ML 1000 ML IV (10:21)
[2020-06-13 10:36] LABS: Bacteria Urine None Seen; RBC Urine None Seen (0-5/HPF); WBC Urine None Seen (0-5/HPF)
[2020-06-13 10:38] LABS: Appearance Urine UA CLEAR; Bilirubin Urine UA NEGATIVE (NEGATIVE); Color Urine UA YELLOW; Glucose Urine UA TRACE g/dL (Negative); Ketones Urine UA NEGATIVE (NEGATIVE); Leukocyte Esterase Urine UA NEGATIVE (NEGATIVE); Nitrite Urine UA NEGATIVE (Negative); Occult Blood Urine UA NEGATIVE (Negative); Protein Urine UA NEGATIVE (Negative); Urobilinogen Urine UA 0.2 E.U./dL (0.2); pH Urine UA 6.5 (4.5-8.0)
[2020-06-13 10:39] LABS: UR Morphine/Opiate cutoff 300 Negative (Negative); Ur Creatinine Normal (Normal); Ur Specific Gravity Normal (Normal); Urine Amphetamines Negative (Negative); Urine Barbiturates Negative (Negative); Urine Benzodiazepines Negative (Negative); Urine Cocaine Negative (Negative); Urine MDMA Negative (Negative); Urine Methadone Negative (Negative); Urine Methamphetamines Positive (Negative); Urine Oxycodone Negative (Negative); Urine Phencyclidine Negative (Negative); Urine Tetrahydrocannabinol Negative (Negative); Urine Tricyclic Antidepressant Negative (Negative); Urine pH Normal (Normal)
[2020-06-13 10:42] LABS: Culture Indicated Urine Cult Not Indicated; Urine Comments Microscopic Normal
[2020-06-13 10:52] LABS: Add Manual Diff / Slide Review NO; Basophils Absolute Auto 100 /uL (0-100); Eosinophils Absolute Auto 200 /uL (0-450); Hematocrit 43.7 % (41-53); Hemoglobin 14.8 g/dL (13.5-17.5); Lymphocytes Absolute Auto 2400 /uL (1100-4500); Lymphocytes Percent Auto 22.7 % (25-40); Mean Corpuscular HGB Conc 33.9 % (30-36); Mean Corpuscular Hemoglobin 31.1 PG (26-34); Mean Corpuscular Volume 91.8 fL (80-100); Monocytes Absolute Auto 700 /uL (0-900); Monocytes Percent Auto 6.9 % (3-14); Neutrophils Absolute Auto 7200 /uL (1500-7000); Neutrophils Percent Auto 67.4 % (50-75); Platelet Count 269 X10^3/uL (150-400); Red Blood Cell Count 4.76 X10^6/uL (4.5-5.9); Red Cell Distribution Width 13.2 % (11.6-14.8); White Blood Cell Count 10.6 X10^3/uL (4.5-11.0)
[2020-06-13 11:03] LABS: Prothrombin Time 11.2 SECONDS (10.1-12.7)
[2020-06-13 11:05] LABS: PTT Partial Thromboplastin Tim 30 SECONDS (26.4-36.2)
[2020-06-13 11:10] LABS: HEMOLYSIS 18 (0-50); Potassium 3.9 mmol/L (3.4-5.1)
[2020-06-13 11:11] LABS: Alanine Aminotransferase 40 IU/L (<50); Albumin 4.2 g/dL (3.5-5.0); Albumin Globulin Ratio 1.4 (1.0-2.8); Alkaline Phosphatase 86 U/L (38-126); Aspartate Aminotransferase 31 IU/L (17-59); BUN Creatinine Ratio 14.4 (6-22); Bilirubin Total 0.3 mg/dL (0.2-1.3); Blood Urea Nitrogen 13 mg/dL (9-20); Calcium 9.1 mg/dL (8.4-10.2); Carbon Dioxide 26 mmol/L (22-32); Chloride 104 mmol/L (98-107); Estimated Glomerular Filt Rate > 60.0 mL/min (>60); Globulin 2.9 g/dL (1.7-4.1); Glucose 134 mg/dL (70-100); Lipase 287 U/L (23-300); Sodium 139 mmol/L (137-145); Total Protein 7.1 g/dL (6.3-8.2)
[2020-06-13 11:21] LABS: Troponin I < 0.012 ng/mL (0.01-0.034)
[2020-06-13 11:31] LABS: COVID19 - ADMIT (NP swab/PCR) Negative (Negative)
--- NOTE | 2020-06-13 12:48 | PC.NURSE ---
ISAURA Katz in room speaking with patient.
--- NOTE | 2020-06-13 13:26 | PC.NURSE ---
Pt states that he has had 4 days of blood in stool with SOB.
--- NOTE | 2020-06-13 13:54 | CM.SWNOTE ---
AUTOMOTIVE PAINTER HELPER Assessment AUTOMOTIVE PAINTER HELPER - Caption Writer Assessment Time Spent with Patient Start date 06/13/20 Visit Start Time 12:40 End date 06/13/20 Visit End Time 13:25 Total time Care Management spent on 45 patient visit-in minutes Mental Health Screening Include Onset, Duration, Intensity Presenting Problem Patient presents to this ED following a discussion with his counselor who suggested that he come to ED. Patient states he has been feeling suicidal for the past several weeks and has been thinking about killing himself via overdose. Patient endorses loss of motivation, feelings of depression, hopelessness, increased sleep, and increased presence of physical pain. Patient has been injecting and smoking meth since end of relationship to help cope with pain. Patient states he does very little meth, currently. Patient states he has used heroin 2-3 times in past several weeks. Precipitating Event(s) Patient relapsed roughly 1 month ago on meth. Patient reports his former partner left him and that he is currently not allowed to see his child per CPS. Patient had been clean for 2 years prior to current relapse . Patient and his former partner had been working with CPS to regain custody of their children during that time. Patient has completed 3 days of work since his former partner left him. Patient moved into an RV which he describes as having mold problems following the termination of the relationship. Patient Strengths Patient has a strong connection to his children and expresses that he wants to get better. Current Behavioral Health Provider(s) [facility] [place] Include Facility, Provider, Ph. # [facility]. Hx Mental Health and Chemical Patient reports hx of SI, Dependency depression. Patient discusses significant hx of FISH, including meth use and heroin use. Family Hx of Behavioral Abuse None reported. Psychiatric Hospitalizations (date(s)/ None reported. location) Psychosocial information & Support Patient is a 35 y/o male who Systems recently moved into his RV after the termination of his relationship. Patient has 3 children who he currently is unable to see. Patient states he does not have family or friends in current location. 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 Legal Concerns Legal Matters - Outstanding Issues None reported Mental Status Orientation (Person/Place/Time) Oriented x4 Stated Mood In pain Affect (Congruent with Mood?) Dysthymic, slightly agitated, stable, full range, congruent with mood. Thought Content - Specify/Describe No obsessions, delusions, or Obsessions, Delusions, Hallucinations hallucinations observed or reported. Thought Processes (Ccjcqch-Oeitmzad-Dfpq Coherent Kzvlwdxh-Dnlnbkvl-Kmbiwehicc- Pdmwxrgclyclgi-Dsuomno-Bphueciezqmd- Thought Blocking) Speech (Fvcspg-Nvwe-Tpnyzwg-Rapid-Soft- Normal Loud-Pressured) Motor (Vzyjmw-Fcszmsbxl-Vhnn-Other) Normal Insight (Ggci-Mkim-Gbar/Limited) Good-Fair Judgement (Axul-Hpoj-Xmxo/Limited) Fair-Poor Impulse Control (Adequate-Impaired) Adequate in assessment Memory (Wdvemczpy-Xafoei-Kdvvzq, Intact for interview, not Impaired-Intact) formally assessed. Concentration (Intact-Impaired) Intact Attention (Intact-Impaired) Intact Behavior (Appropriate-Inappropriate) Appropriate. Risk Assessment Suicidal Ideation (Plan) Yes Homicidal Ideation (Plan) No Comment Patient denies HI. Patient endorses SI and states he had planned to overdose on bad drugs he obtained a few weeks prior. Patient explains he had attempted to use these drugs for use unrelated to SI when he obtained the drugs, and that he realized the drugs were poison while he was injecting them. Patient states he stopped at that point. Patient states he does not currently think that he could use these drugs for suicide, but states he does not know if he will be able to be safe in a few days with his depression. Patient states there are no guns in home. Intervention Intervention AUTOMOTIVE PAINTER HELPER meets with patient. Patient discusses SI and the termination of relationship. Patient explains he feels as though his reason for living was removed when he became from his family. Patient states often that I don't want to be here anymore . Patient states he feels this way with regards to SI, but also uses this language to explain that he no longer wants to be in [place], and is considering leaving the area to avoid seeing his former partner. Patient and AUTOMOTIVE PAINTER HELPER discuss next steps. AUTOMOTIVE PAINTER HELPER brings up inpatient treatment for patient's depression and increasing SI. Patient explains that his counselor had discussed this with him as well, and he is currently unsure if this is something that he is interested in. Though patient would benefit from inpatient behavioral health services, at this time, patient does not meet criteria for imminent harm to self/other or grave disability . Patient is able to articulate that he wants to get better, describes wanting a relationship with his children, and discusses future planning during assessment. AUTOMOTIVE PAINTER HELPER and patient agree that patient will consider inpatient treatment. Patient provides verbal permission for AUTOMOTIVE PAINTER HELPER to contact patient's counselor. AUTOMOTIVE PAINTER HELPER exits room and updates ED Provider Dr. Luong. Plan RA Plan AUTOMOTIVE PAINTER HELPER will contact patient's counselor and then discuss inpatient vs. outpatient options for patient. ISAURA Mckeon
--- NOTE | 2020-06-13 14:22 | PC.NURSE ---
1300: Patient is medically Cleared, removed form monitor and IV DC'd at this time. Receiving DIRECTOR ORGANIZATIONAL Consult.
--- NOTE | 2020-06-13 14:27 | PC.NURSE ---
Patient reports he is having joint pain for which he normally takes diclofenac. Is requesting some Ibuprofen. I spoke with Dr. Luong who gave me a verbal order for 400mg Ibuprofen and 650mg of tylenol.
[2020-06-13] MEDS: ACETAMINOPHEN 325 MG TABLET 650 MG PO (14:37)
[2020-06-13] MEDS: IBUPROFEN 400 MG TABLET PO (14:37)
--- NOTE | 2020-06-13 14:51 | CM.SWNOTE ---
BUTADIENE CONVERTER HELPER note Following assessment BUTADIENE CONVERTER HELPER contacts patient's counselor Jojo at [facility]. Jojo informs BUTADIENE CONVERTER HELPER that patient has been experiencing significant depression for several weeks and during their phone call prior to ED visit, patient reported increasing depression and SI. Jojo states she agrees that patient is appropriate fit for voluntary inpatient at this time and expresses worry for his safety over the weekend if d/c'ed. BUTADIENE CONVERTER HELPER enters room and discusses inpatient options with patient. Patient weighs the pros and cons of inpatient and states if I go I might be better able to deal with everything and continues to explain that If I don't go, I may just go buy a bottle, get drunk and say 'Fuck it'. Patient informs BUTADIENE CONVERTER HELPER that he did go to [facility] roughly 3 years ago and describes it as a positive experience. BUTADIENE CONVERTER HELPER calls [facility] and confirms open beds. BUTADIENE CONVERTER HELPER discusses the above with ED Provider Dr. Luong who indicates agreement with plan for patient to pursue voluntary inpatient hospitalization. Plan: BUTADIENE CONVERTER HELPER to fax clinicals to [facility]. ISAURA Mckeon
--- NOTE | 2020-06-13 18:45 | PC.NURSE ---
At this time I gave report to Lindsay MCBRIDE at [facility] health.
[2020-06-13] MEDS: NICOTINE 21 MG PATCH TOP (18:56)
--- NOTE | 2020-06-13 18:59 | PC.NURSE ---
Patient sitting up eating sandwich in bed.
[2020-06-13] MEDS: LORazepam 0.5 MG TABLET 1 MG PO ×2 (19:36→20:29)
--- NOTE | 2020-06-13 20:36 | CM.SWNOTE ---
SCIENTIFIC RESEARCH ASSOCIATE note SCIENTIFIC RESEARCH ASSOCIATE calls [facility] for update and is informed that they are still reviewing clinicals. SCIENTIFIC RESEARCH ASSOCIATE is informed that [facility] will likely have a determination around [phone] regarding acceptance. SCIENTIFIC RESEARCH ASSOCIATE provides [phone] due to upcoming end of shift. SCIENTIFIC RESEARCH ASSOCIATE notifies patient. Patient expresses frustration due to delay, but indicates understanding. SCIENTIFIC RESEARCH ASSOCIATE updates ED provider Dr. Henriquez and RAE Hart of the above. Plan: Continue pursuit of voluntary inpatient behavioral health bed for patient. ISAURA Mckeon
--- NOTE | 2020-06-13 20:44 | PC.NURSE ---
Patient reports anxiety and desire to go out and smoke. Was given two doses of ativan over the last hour to help manage symptoms of anxiety.
[2020-06-13] MEDS: KETOROLAC 30 MG/ML VIAL IM (21:20)
[2020-06-13] MEDS: OLANZapine ODT 10 MG TAB PO (22:45)
--- NOTE | 2020-06-13 22:49 | PC.NURSE ---
Reports continued anxiety and muscle spasms. Given zyprexa ODT.
--- NOTE | 2020-06-14 00:10 | PC.NURSE ---
At this time [facility] intake person, Aby called to state they cannot accept the patient due to medical complaints including blood in stools, shortness of breath, and unsteady gait. I explained to her that the patient does not complain of any shortness of breath, has not had blood in stool for several weeks, and has been up to the bathroom multiple times with a steady gait. He has also been cleared by two ER physicians of any medical issues. She reports they still cannot accept the patient. I informed Dr. Henriquez who called back and requested to speak with the drLizzy who rejected the patient.
[2020-06-14 00:35] VITALS: PULSE 64; O2SAT 97
[2020-06-14 00:36] VITALS: BP 124/57; PULSE 64; O2SAT 98
--- NOTE | 2020-06-14 00:40 | PC.NURSE ---
Patient reports decrease in anxiety. Able to arouse, but is resting quietly when asleep.
[2020-06-14 00:53] LABS: Hemoglobin 13.1 g/dL (13.5-17.5)
[2020-06-14 01:24] LABS: Creatine Kinase 62 U/L (55-170); Magnesium 1.9 mg/dL (1.6-2.3)
[2020-06-14 01:56] LABS: Thyroid Stimulating Hormone 2.15 uIU/mL (0.47-4.68)
--- NOTE | 2020-06-14 04:00 | PC.NURSE ---
Pt had been declined at [facility]. Have faxed records to [facility] and to [facility].
[2020-06-14 05:37] VITALS: BP 131/75; PULSE 77; RESP 12; O2SAT 99
[2020-06-14 05:40] VITALS: BP 110/49; PULSE 66; RESP 16; O2SAT 98
--- NOTE | 2020-06-14 05:40 | PC.NURSE ---
[facility] had me ask him would he come there and he stated no.He said he did not want to go to [facility]. He said.that he did not want to harm himself or hurt anyone and that he felt safe to go home.
--- NOTE | 2020-06-14 07:59 | PC.NURSE ---
Patient sleeping, woke to verbal stimulation. Breakfast tray at bedside.
--- NOTE | 2020-06-14 08:15 | PC.NURSE ---
Provider and RN at bedside. Patient sleepy, having difficulty engaging in conversation. Reports he is willing to go to inpatient facility. Would like to continue pursuing options. I am most comfortable at [facility] but they won't take me I don't know what to do
--- NOTE | 2020-06-14 11:40 | PC.NURSE ---
Lunch tray provided for patient.
--- NOTE | 2020-06-14 12:35 | PC.NURSE ---
Nain from [facility] recommended Ativan if needed for transport. Patient calm and sleepy upon transfer to care. Provided aware of [facility] request and does not feel necessary at this time
== END 2020-06-14 12:35 ==
PROVIDERS: Emergency Medicine; Emergency Provider Emergency Medicine; PCP Student in an Organized Health Care Education/Training Program
DX: R45.851 Suicidal ideations (principal); F32.9 Major depressive disorder, single episode, unspecified; R42 Dizziness and giddiness; K92.1 Melena; Z20.822 Contact with and (suspected) exposure to COVID-19
CPT/HCPCS: 36415; 71045; 80053; 80305; 81001; 82550; 83690; 83735; 84443; 84484; 85014; 85018; 85025; 85610; 85730; 86850; 86900; 86901; 87635; 93005; 96361; 96372; 96374; 96375; 99285; C9803; C9113; J1885; J2405

== ENCOUNTER 2020-07-10 15:09 | Emergency (ER) | payer OTHER, MEDICAID, SELFPAY ==
[2020-07-10 15:17] VITALS: BP 137/81; PULSE 86; RESP 24; TEMP 37.2; O2SAT 99
[2020-07-10] MEDS: cephALEXin 250 MG CAPSULE 500 MG PO (16:58)
[2020-07-10] MEDS: TRIMETH/SULFA 160/800 (DS) TABLET 1 TAB PO (16:58)
--- NOTE | 2020-07-10 18:39 | ED_ITS ---
HPI - Skin/Abscess/Foreign Bdy <MANDY Gonzalez - Last Filed: 07/10/20 18:43> General Chief complaint: Skin/Abscess/Foreign Body Stated complaint: SORES ALL OVER BODY HIT RT SIDE OF HEAD Time Seen by Provider: 07/10/20 16:30 Source: patient Mode of arrival: Ambulatory Limitations: no limitations History of Present Illness HPI narrative: The patient is a 35-year-old male current everyday smoker presents with a chief complaint of sores all over his body. He states he notes some over the past week. Denies any fevers muscle aches or chills. Denies any history of diabetes. Does admit to methamphetamine use, last use prior to a [facility] emergency department arrival. He states that he is not sure whether he picks or scratches at them. Has noticed pus coming from some of them. States he has a primary care provider who he has not seen in a very long time. Denies any nausea vomiting diarrhea or abdominal pain. Related Data Home Medications Medication Instructions Recorded Confirmed bupropion HCl 150 mg 24 hr tablet, 300 mg PO tab 03/22/20 05/24/20 extended release naltrexone 50 mg tablet 50 mg PO DAILY 03/22/20 05/24/20 Previous Rx's Medication Instructions Recorded diclofenac sodium 2 gram TOP QID PRN #100 gram 07/03/19 lidocaine 1 patch TOP Q24H PRN #30 each 11/11/19 diclofenac sodium 75 mg 75 mg PO BID #180 tab 01/15/20 tablet,delayed release ondansetron 4 mg disintegrating 4 mg PO Q6-8H PRN #30 tab 01/26/20 tablet cyclobenzaprine 10 mg PO TID PRN #10 tab 03/20/20 ibuprofen 600 mg PO Q6H PRN #24 tab 03/20/20 cephalexin 500 mg PO TID 10 Days #30 cap 07/10/20 sulfamethoxazole-trimethoprim 1 tab PO BID #14 tab 07/10/20 [Bactrim DS] Allergies Allergy/AdvReac Type Severity Reaction Status Date / Time No Known Drug Allergies Allergy Verified 03/22/20 12:47 Review of Systems <MANDY Gonzalez - Last Filed: 07/10/20 18:43> Review of Systems Narrative: GENERAL: Denies chills, fatigue, malaise, fever, sweats. HEENT: Denies sinus pain, ear pain, sore throat, difficulty swallowing, dizziness. RESPIRATORY: Denies dyspnea, cough, wheezing, hemoptysis, sputum. CARDIOVASCULAR: Denies chest pain, palpitations, orthopnea, edema, GASTROINTESTINAL: Denies nausea, vomiting, abdominal pain, diarrhea, constipation, melena. : Denies dysuria, frequency, incontinence, hematuria, urinary retention. MUSCULOSKELETAL: denies weakness, joint pain, or bony pain SKIN: See HPI NEUROLOGIC: Denies weakness, headache, numbness, change in speech, confusion, seizures, incoordination. PSYCHIATRIC: No concerning psychosocial issues. 12 point review of systems is negative except for those stated above Patient History <MANDY Gonzalez - Last Filed: 07/10/20 18:43> Medical History Ankle pain, left Arthritis Constipation Depression Obesity (BMI 35.0-39.9 without comorbidity) PTSD (post-traumatic stress disorder) Substance abuse Social History Smoking Status: Current every day smoker Smoking Status: Current every day smoker alcohol intake frequency: holidays/special occasions only Substance Use Type: does not use Exam <MANDY Gonzalez - Last Filed: 07/10/20 18:43> Narrative Exam Narrative: GENERAL: This is a well-nourished, well-developed patient, in no acute distress HEAD: Atraumatic. Normocephalic. No temporal or scalp tenderness. EYES: Pupils equal round and reactive. Extraocular motions intact. No scleral icterus. No injection or drainage. ENT: Nose without bleeding, purulent drainage or septal hematoma. Wearing mask. Airway patent. NECK: Trachea midline. No JVD or lymphadenopathy. Supple, nontender, no meningeal signs. CARDIOVASCULAR: Regular rate and rhythm RESPIRATORY: No cough. No increased respiratory effort. No accessory muscle use. GASTROINTESTINAL: Abdomen soft, non-tender, nondistended. No hepato- splenomegaly, or palpable masses. No guarding. EXTREMITIES: No clubbing, cyanosis, or edema. No joint tenderness, effusion, or edema noted. BACK: Nontender without deformity or crepitance. No flank tenderness. NEURO: AOx3. SKIN: Multiple sores 1 cm or less noted over bilateral forearms, wound culture taken from right forearm. Multiple sub 0.5 cm pustules noted on left buttock, multiple sub 0.5 cm pustules noted on face. Multiple scratch michel noted. No palpable fluctuance, drainable abscesses noted on exam Initial Vital Signs Initial Vital Signs: Vital Signs Temperature 99.0 F 07/10/20 15:17 Pulse Rate 86 07/10/20 15:17 Respiratory Rate 24 07/10/20 15:17 Blood Pressure 137/81 07/10/20 15:17 Pulse Oximetry 99 07/10/20 15:17 <Remberto Kemp DO - Last Filed: 07/10/20 18:46> Initial Vital Signs Initial Vital Signs: Vital Signs Temperature 99.0 F 07/10/20 15:17 Pulse Rate 86 07/10/20 15:17 Respiratory Rate 24 07/10/20 15:17 Blood Pressure 137/81 07/10/20 15:17 Pulse Oximetry 99 07/10/20 15:17 Scores <MANDY Gonzalez - Last Filed: 07/10/20 18:43> GCS [place] coma scale eye opening: Spontaneous [place] coma scale verbal response: Orientated [place] coma scale motor response: Obey commands [place] coma scale total score: 15 Course <MANDY Gonzalez - Last Filed: 07/10/20 18:43> Orders Ordered: ED Orders 07/10/20 17:00 Wound Culture and Gram Stain Stat Discontinued Medications Cephalexin HCl (Cephalexin 250 Mg Capsule) 500 mg PO NOW ONE Stop: 07/10/20 16:54 Last Admin: 07/10/20 16:58 Dose: 500 mg Documented by: SILVIANO Trimethoprim/Sulfamethoxazole (Trimeth/Sulfa 160/800 (Ds) Tablet) 1 tab PO NOW ONE Stop: 07/10/20 16:54 Last Admin: 07/10/20 16:58 Dose: 1 tab Documented by: SILVIANO Vital Signs Vital signs: Vital Signs - 8 hr 07/10/20 15:17 Temperature 99.0 F Pulse Rate 86 Respiratory Rate 24 Blood Pressure 137/81 Pulse Oximetry 99 <DO Demar Ayoub Last Filed: 07/10/20 18:46> Orders Ordered: ED Orders 07/10/20 17:00 Wound Culture and Gram Stain Stat Discontinued Medications Cephalexin HCl (Cephalexin 250 Mg Capsule) 500 mg PO NOW ONE Stop: 07/10/20 16:54 Last Admin: 07/10/20 16:58 Dose: 500 mg Documented by: SILVIANO Trimethoprim/Sulfamethoxazole (Trimeth/Sulfa 160/800 (Ds) Tablet) 1 tab PO NOW ONE Stop: 07/10/20 16:54 Last Admin: 07/10/20 16:58 Dose: 1 tab Documented by: SILVIANO Vital Signs Vital signs: Vital Signs - 8 hr 07/10/20 15:17 Temperature 99.0 F Pulse Rate 86 Respiratory Rate 24 Blood Pressure 137/81 Pulse Oximetry 99 MDM - Skin/Abscess/Foreign Bdy <CARLOZ Gonzalez-BC - Last Filed: 07/10/20 18:43> MDM Narrative Medical decision making narrative: The patient is a 35-year-old male with history of methamphetamine use who presents with a chief complaint of multiple sores. Wound culture was taken. No drainable abscesses on exam today. Will initiate treatment for infected wounds with Keflex and Bactrim. Discussed at length stopping methamphetamine use, offered resources with patient declines stating he is not ready. Encouraged follow-up with primary care provider in the next few days. Patient has no questions or concerns upon discharge states unde rstanding return precautions as well as follow-up care. The patient was given 1st dose of antibiotics in the emergency department today, which he tolerated well. Discharge Plan Departure Patient Disposition: Home Clinical Impression: Abscess Instructions: DI for Skin Abscess Activity Restrictions/Additional Instructions: Thank for trusting us with your care today As Discussed, please stop using methamphetamines. I sent 2 prescriptions to [facility] in [place] as. These are antibiotics. Please take this with probiotic or yogurt to help prevent antibiotic related side effects As discussed, please come back to the emergency department for any acute concerns. I have given you contact information to the [facility] health natural resources professor. They can help you find a new primary care provider. Prescriptions: New cephalexin 500 mg capsule 500 mg PO TID 10 Days Qty: 30 RF: 0 sulfamethoxazole-trimethoprim [Bactrim DS] 800-160 mg tablet 1 tab PO BID Qty: 14 RF: 0 No Action ondansetron 4 mg tablet,disintegrating 4 mg PO Q6-8H PRN (Reason: nausea and vomiting) Qty: 30 RF: 0 diclofenac sodium 75 mg tablet,delayed release (DR/EC) 75 mg PO BID Qty: 180 RF: 1 naltrexone 50 mg tablet 50 mg PO DAILY RF: 0 bupropion HCl 150 mg tablet extended release 24 hr 300 mg PO RF: 0 diclofenac sodium 1 % gel 2 gram TOP QID PRN (Reason: pain and inflammation) Qty: 100 RF: 0 lidocaine 5 % adhesive patch,medicated 1 patch TOP Q24H PRN (Reason: pain) Qty: 30 RF: 0 cyclobenzaprine 10 mg tablet 10 mg PO TID PRN (Reason: muscle spasm) Qty: 10 RF: 0 ibuprofen 600 mg tablet 600 mg PO Q6H PRN (Reason: fever or pain) Qty: 24 RF: 0 Referrals: [facility] [Outside] Rodrigo Donis MD [Primary Care Provider] - <Remberto Kemp DO - Last Filed: 07/10/20 18:46> [facility]: Dr Kemp Co-Sign Statement: I was available for consultation during this patient's emergency department visit. T his chart is signed by myself for administrative purposes only. I did not have direct contact with this patient during this visit. They were seen independently by the APC.
== END 2020-07-10 17:36 | disposition home or self-care (01) ==
PROVIDERS: Emergency Provider Nurse Practitioner Family; PCP Student in an Organized Health Care Education/Training Program
DX: L02.414 Cutaneous abscess of left upper limb (principal); L02.413 Cutaneous abscess of right upper limb; L02.31 Cutaneous abscess of buttock; L02.01 Cutaneous abscess of face
CPT/HCPCS: 87070; 87075; 87077; 87147; 87205; 99283

== ENCOUNTER 2020-08-30 20:32 | Emergency (ER) | payer OTHER, MEDICAID, SELFPAY ==
[2020-08-30 20:50] VITALS: BP 136/86; PULSE 75; RESP 20; TEMP 36.4; O2SAT 97
[2020-08-30 21:43] LABS: COVID19 -Nasal RAPID Negative (Negative)
[2020-08-31 00:16] LABS: Adenovirus Not Detected (Not Detect); B. parapertussis Not Detected (Not Detecte); Bordetella pertussis Not Detected (Not Detecte); Chlamydophila pneumoniae Not Detected (Not Detect); Coronavirus 229E Not Detected (Not Detect); Coronavirus HKU1 Not Detected (Not Detect); Coronavirus NL 63 Not Detected (Not Detect); Coronavirus OC43 Not Detected (Not Detect); Human Metapneumovirus Not Detected (Not Detect); Human Rhinovirus/Enterovirus Not Detected (Not Detect); Influenza A Not Detected (Not Detect); Influenza B Not Detected (Not Detect); Mycoplasma pneumoniae Not Detected (Not Detect); Parainfluenza Virus 1 Not Detected (Not Detect); Parainfluenza Virus 2 Not Detected (Not Detect); Parainfluenza Virus 3 Detected (Not Detect); Parainfluenza Virus 4 Not Detected (Not Detect); Respiratory Syncytial Virus Not Detected (Not Detect); SARS- CoV-2 Not Detected (Not Detecte)
[2020-08-31] MEDS: BENZONATATE 100 MG CAPSULE PO (00:45)
[2020-08-31 00:59] VITALS: PULSE 103; RESP 20; O2SAT 99
--- NOTE | 2020-08-31 05:14 | ED_ITS ---
HPI - URI/Sore Throat General Chief Complaint: Upper Respiratory Symptoms Stated Complaint: CHEST HURTS BAD COUGH BODY ACHES Time Seen by Provider: 08/30/20 22:38 Source: patient Mode of arrival: Ambulatory History of Present Illness HPI Narrative: 35-year-old gentleman with no significant medical history presents with a week of upper respiratory symptoms including cough, stuffy nose, sore throat, minimal fevers, no dyspnea, no loss of sense no vomiting, abdominal pain, nausea, diarrhea, dysuria. He was recently exposed to COVID-19 and has not been vaccinated. Related Data Home Medications Medication Instructions Recorded Confirmed bupropion HCl 150 mg 24 hr tablet, 300 mg PO tab 03/22/20 05/24/20 extended release naltrexone 50 mg tablet 50 mg PO DAILY 03/22/20 05/24/20 Previous Rx's Medication Instructions Recorded diclofenac sodium 1 % topical gel 2 gram TOP QID PRN #100 gram 07/03/19 lidocaine 5 % topical patch 1 patch TOP Q24H PRN #30 each 11/11/19 diclofenac sodium 75 mg 75 mg PO BID #180 tab 01/15/20 tablet,delayed release ondansetron 4 mg disintegrating 4 mg PO Q6-8H PRN #30 tab 01/26/20 tablet cyclobenzaprine 10 mg tablet 10 mg PO TID PRN #10 tab 03/20/20 ibuprofen 600 mg tablet 600 mg PO Q6H PRN #24 tab 03/20/20 sulfamethoxazole 800 1 tab PO BID #14 tab 07/10/20 mg-trimethoprim 160 mg tablet (Bactrim DS) benzonatate 100 mg capsule 100 mg PO TID PRN #14 cap 08/31/20 Allergies Allergy/AdvReac Type Severity Reaction Status Date / Time No Known Drug Allergies Allergy Verified 08/30/20 20:53 Review of Systems Review of Systems Narrative: Remainder of complete review of systems is otherwise unremarkable except for that included in the HPI. Patient History Medical History Ankle pain, left Arthritis Constipation Depression Obesity (BMI 35.0-39.9 without comorbidity) PTSD (post-traumatic stress disorder) Substance abuse Social History Smoking Status: Current every day smoker Smoking Status: Current every day smoker alcohol intake frequency: holidays/special occasions only Substance Use Type: does not use Exam Narrative Exam Narrative: General: Alert appropriate in no acute distress Respiratory: Able to speak in full sentences, no obvious respiratory distress. No rhonchi or rales appreciated, no significant wheezing Cardiac: Regular rate and rhythm without murmur Skin: No obvious rashes, warm and dry Neurologic: Grossly intact no obvious asymmetries or abnormalities Psych: appropriate insight and affect, cooperative Initial Vital Signs Initial Vital Signs: Vital Signs Temperature 97.6 F 08/30/20 20:50 Pulse Rate 75 08/30/20 20:50 Respiratory Rate 20 08/30/20 20:50 Blood Pressure 136/86 08/30/20 20:50 Pulse Oximetry 97 08/30/20 20:50 Course Orders Ordered: ED Orders 08/30/20 20:53 COVID19 -Nasal swab/Pre-Proc Stat 08/30/20 23:05 Respiratory Panel (Film Array) Stat Discontinued Medications Benzonatate (Benzonatate 100 Mg Capsule) 100 mg PO NOW ONE Stop: 08/31/20 00:35 Last Admin: 08/31/20 00:45 Dose: 100 mg Documented by: EARLENE Vital Signs Vital signs: Vital Signs - 8 hr 08/31/20 00:59 Pulse Rate 103 H Respiratory Rate 20 Pulse Oximetry 99 MDM - URI/Sore Throat Lab Data Labs: Lab Results 08/30/20 08/30/20 Range/Units 20:53 23:05 Chlamy pneumoniae PCR Not detected (Not Detect) Adenovirus (PCR) Not detected (Not Detect) B. pertussis DNA (PCR) Not detected (Not Detecte) B.parapertussis DNA PCR Not detected (Not Detecte) Coronavirus OC43 (PCR) Not detected (Not Detect) Coronavirus HKU1 (PCR) Not detected (Not Detect) Coronavirus 229E (PCR) Not detected (Not Detect) SARS-CoV-2 (PCR) Negative Not detected (Negative) Coronavirus NL63 (PCR) Not detected (Not Detect) Human Metapneumovir PCR Not detected (Not Detect) Influenza Type A (PCR) Not detected (Not Detect) Influenza Type B (PCR) Not detected (Not Detect) M. pneumoniae (PCR) Not detected (Not Detect) Parainfluenza 1 (PCR) Not detected (Not Detect) Parainfluenza 2 (PCR) Not detected (Not Detect) Parainfluenza 3 (PCR) Detected H (Not Detect) Parainfluenza 4 (PCR) Not detected (Not Detect) RSV (PCR) Not detected (Not Detect) Entero/Rhino (PCR) Not detected (Not Detect) MDM Narrative Medical decision making narrative: 35-year-old gentleman presents with upper respiratory in symptoms concerning for COVID with recent COVID exposure. With initial screening rapid COVID test negative and still significant concern for COVID variants, entire PCR panel is done and he has parainfluenza virus identified. This is consistent with his clinical presentation. He is given a prescription for Tessalon Perles to help cough recommended ibuprofen to help with the body aches. There is no evidence of COVID-19 or bacterial pneumonia. No other respiratory compromise and He is safe for home discharge. Discharge Plan Departure Patient Disposition: Home Clinical Impression: Upper respiratory infection Qualifiers: URI type: unspecified viral URI Qualified Code(s): J06.9 - Acute upper respiratory infection, unspecified Instructions: DI for Viral Upper Respiratory Infection -- Adult Activity Restrictions/Additional Instructions: You do not have coronavirus Is you do have parainfluenza and rhinovirus. These are common cold viruses and you should get better within the next couple of days. Using 400 mg of ibuprofen (2 [id number] pills) and 1 Tylenol every 6 hours can be very helpful in controlling pain, body aches and fever You can use Tessalon Perles to help with the cough. The prescription was electronically transmitted to [facility] in [place]. I hope you feel better Prescriptions: New benzonatate 100 mg capsule 100 mg PO TID PRN (Reason: cough) Qty: 14 RF: 0 No Action ondansetron 4 mg tablet,disintegrating 4 mg PO Q6-8H PRN (Reason: nausea and vomiting) Qty: 30 RF: 0 diclofenac sodium 75 mg tablet,delayed release (DR/EC) 75 mg PO BID Qty: 180 RF: 1 naltrexone 50 mg tablet 50 mg PO DAILY RF: 0 bupropion HCl 150 mg tablet extended release 24 hr 300 mg PO RF: 0 diclofenac sodium 1 % gel 2 gram TOP QID PRN (Reason: pain and inflammation) Qty: 100 RF: 0 lidocaine 5 % adhesive patch,medicated 1 patch TOP Q24H PRN (Reason: pain) Qty: 30 RF: 0 cyclobenzaprine 10 mg tablet 10 mg PO TID PRN (Reason: muscle spasm) Qty: 10 RF: 0 ibuprofen 600 mg tablet 600 mg PO Q6H PRN (Reason: fever or pain) Qty: 24 RF: 0 sulfamethoxazole-trimethoprim [Bactrim DS] 800-160 mg tablet 1 tab PO BID Qty: 14 RF: 0
== END 2020-08-31 01:04 | disposition home or self-care (01) ==
PROVIDERS: Emergency Provider Emergency Medicine
DX: J06.9 Acute upper respiratory infection, unspecified (principal); Z20.822 Contact with and (suspected) exposure to COVID-19
CPT/HCPCS: 87633; 87635; 99283; C9803

== ENCOUNTER → 2020-09-07 16:25 | Outpatient (CLI) | payer OTHER, MEDICAID, SELFPAY | PROVIDERS: Visit Provider Physician Assistant | DX: B99.9 Unspecified infectious disease (principal) | CPT/HCPCS: 87070; 87075; 87077; 87147; 87186; 87205 ==

== ENCOUNTER 2020-09-25 17:12 | Emergency (ER) | payer OTHER, MEDICAID, SELFPAY ==
[2020-09-25 17:18] VITALS: BP 133/81; PULSE 77; RESP 16; TEMP 36.6; O2SAT 98; BMI 36.2
[2020-09-25 17:58] LABS: COVID19 -Nasal RAPID Negative (Negative)
--- NOTE | 2020-09-25 18:06 | ED.URI ---
HPI - URI/Sore Throat General Chief Complaint: Upper Respiratory Symptoms Stated Complaint: wants Covid test Time Seen by Provider: 09/25/20 18:06 Source: patient Mode of arrival: Ambulatory Limitations: no limitations Related Data Home Medications Medication Instructions Recorded Confirmed bupropion HCl 150 mg 24 hr tablet, 300 mg PO tab 03/22/20 09/07/20 extended release naltrexone 50 mg tablet 50 mg PO DAILY 03/22/20 09/07/20 Previous Rx's Medication Instructions Recorded diclofenac sodium 1 % topical gel 2 gram TOP QID PRN #100 gram 07/03/19 lidocaine 5 % topical patch 1 patch TOP Q24H PRN #30 each 11/11/19 diclofenac sodium 75 mg 75 mg PO BID #180 tab 01/15/20 tablet,delayed release ondansetron 4 mg disintegrating 4 mg PO Q6-8H PRN #30 tab 01/26/20 tablet cyclobenzaprine 10 mg tablet 10 mg PO TID PRN #10 tab 03/20/20 ibuprofen 600 mg tablet 600 mg PO Q6H PRN #24 tab 03/20/20 benzonatate 100 mg capsule 100 mg PO TID PRN #14 cap 08/31/20 Allergies Allergy/AdvReac Type Severity Reaction Status Date / Time No Known Drug Allergies Allergy Verified 09/25/20 17:26 Patient History Medical History Ankle pain, left Arthritis Constipation Depression Obesity (BMI 35.0-39.9 without comorbidity) PTSD (post-traumatic stress disorder) Substance abuse Social History Smoking Status: Current every day smoker Smoking Status: Current every day smoker alcohol intake frequency: holidays/special occasions only Substance Use Type: does not use Exam Initial Vital Signs Initial Vital Signs: Vital Signs Temperature 97.9 F 09/25/20 17:18 Pulse Rate 77 09/25/20 17:18 Respiratory Rate 16 09/25/20 17:18 Blood Pressure 133/81 09/25/20 17:18 Pulse Oximetry 98 09/25/20 17:18 Course Orders Ordered: ED Orders 09/25/20 17:33 COVID19 -Nasal swab/Pre-Proc Stat Vital Signs Vital signs: Vital Signs - 8 hr 09/25/20 17:18 Temperature 97.9 F Pulse Rate 77 Respiratory Rate 16 Blood Pressure 133/81 Pulse Oximetry 98 MDM - URI/Sore Throat Lab Data Labs: Lab Results 09/25/20 Range/Units 17:33 SARS-CoV-2 (PCR) Negative (Negative) Discharge Plan Departure Prescriptions: No Action ondansetron 4 mg tablet,disintegrating 4 mg PO Q6-8H PRN (Reason: nausea and vomiting) Qty: 30 RF: 0 diclofenac sodium 75 mg tablet,delayed release (DR/EC) 75 mg PO BID Qty: 180 RF: 1 naltrexone 50 mg tablet 50 mg PO DAILY RF: 0 bupropion HCl 150 mg tablet extended release 24 hr 300 mg PO RF: 0 diclofenac sodium 1 % gel 2 gram TOP QID PRN (Reason: pain and inflammation) Qty: 100 RF: 0 lidocaine 5 % adhesive patch,medicated 1 patch TOP Q24H PRN (Reason: pain) Qty: 30 RF: 0 benzonatate 100 mg capsule 100 mg PO TID PRN (Reason: cough) Qty: 14 RF: 0 cyclobenzaprine 10 mg tablet 10 mg PO TID PRN (Reason: muscle spasm) Qty: 10 RF: 0 ibuprofen 600 mg tablet 600 mg PO Q6H PRN (Reason: fever or pain) Qty: 24 RF: 0
--- NOTE | 2020-09-25 18:11 | ED.URI ---
HPI - URI/Sore Throat <Jay Avila PA-C - Last Filed: 09/25/20 18:22> General Chief Complaint: Upper Respiratory Symptoms Stated Complaint: wants Covid test Time Seen by Provider: 09/25/20 18:06 Source: patient Mode of arrival: Ambulatory Limitations: no limitations History of Present Illness HPI Narrative: Keshav presents today with chief complaint of sore throat, runny nose, slight cough that has been going on for a few weeks. He has also had increased fatigue over this time. This started a few days after he received his 1st COVID vaccination. He is going to drug rehab therapy this week and is wanting a test before he goes. He denies any significant chest pain, difficulty breathing, fever, difficulty swallowing, headache or any other acute concerns or complaints at this time. Related Data Home Medications Medication Instructions Recorded Confirmed bupropion HCl 150 mg 24 hr tablet, 300 mg PO tab 03/22/20 09/07/20 extended release naltrexone 50 mg tablet 50 mg PO DAILY 03/22/20 09/07/20 Previous Rx's Medication Instructions Recorded diclofenac sodium 1 % topical gel 2 gram TOP QID PRN #100 gram 07/03/19 lidocaine 5 % topical patch 1 patch TOP Q24H PRN #30 each 11/11/19 diclofenac sodium 75 mg 75 mg PO BID #180 tab 01/15/20 tablet,delayed release ondansetron 4 mg disintegrating 4 mg PO Q6-8H PRN #30 tab 01/26/20 tablet cyclobenzaprine 10 mg tablet 10 mg PO TID PRN #10 tab 03/20/20 ibuprofen 600 mg tablet 600 mg PO Q6H PRN #24 tab 03/20/20 benzonatate 100 mg capsule 100 mg PO TID PRN #14 cap 08/31/20 Allergies Allergy/AdvReac Type Severity Reaction Status Date / Time No Known Drug Allergies Allergy Verified 09/25/20 17:26 Review of Systems <Jay Avila PA-C - Last Filed: 09/25/20 18:22> Review of Systems Narrative: As per HPI Patient History <Jay Avila PA-C - Last Filed: 09/25/20 18:22> Medical History Ankle pain, left Arthritis Constipation Depression Obesity (BMI 35.0-39.9 without comorbidity) PTSD (post-traumatic stress disorder) Substance abuse Social History Smoking Status: Current every day smoker Smoking Status: Current every day smoker alcohol intake frequency: holidays/special occasions only Substance Use Type: does not use Exam <Jay Avila PA-C - Last Filed: 09/25/20 18:22> Narrative Exam Narrative: Const General: cooperative, healthy appearing, comfortable and no acute distress Nutritional Appearance: Elevated BMI Orientation: alert and oriented x3 HENMT Head: normal to inspection and normocephalic Ears: hearing grossly normal bilaterally, external ears normal, TM's normal bilaterally, EAC's normal, mastoids normal and no periauricular adenopathy Nose: external nose normal, nares normal and no nasal discharge Face and sinus: normal facial exam, sinuses nontender and face symmetric Mouth: oral mucosae normal, lip normal, tongue normal and moist mucous membranes Teeth and gingiva: dentition is poor and gingiva normal Throat: posterior oropharynx slightly erythematous without exudate or edema, uvula midline, no postnasal drainage and no uvular edema Eyes periorbital findings normal, eyelids normal, conjunctivae normal Neck: normal visual inspection, full ROM, no lymphadenopathy, no meningeal signs and supple Resp normal respiratory effort, able to speak in complete sentences, not labored and no respiratory distress, clear to auscultation bilaterally, no crackles, no rales and no wheezes Cardio regular rate regular rhythm Heart Sounds: no gallops, no murmurs and no rubs Neuro Alert and Oriented x3, normal gait, moves all extremities. Initial Vital Signs Initial Vital Signs: Vital Signs Temperature 97.9 F 09/25/20 17:18 Pulse Rate 77 09/25/20 17:18 Respiratory Rate 16 09/25/20 17:18 Blood Pressure 133/81 09/25/20 17:18 Pulse Oximetry 98 09/25/20 17:18 <Remberto Kemp DO - Last Filed: 09/25/20 18:53> Initial Vital Signs Initial Vital Signs: Vital Signs Temperature 97.9 F 09/25/20 17:18 Pulse Rate 77 09/25/20 17:18 Respiratory Rate 16 09/25/20 17:18 Blood Pressure 133/81 09/25/20 17:18 Pulse Oximetry 98 09/25/20 17:18 Course <aJy Avila PA-C - Last Filed: 09/25/20 18:22> Orders Ordered: ED Orders 09/25/20 17:33 COVID19 -Nasal swab/Pre-Proc Stat Vital Signs Vital signs: Vital Signs - 8 hr 09/25/20 17:18 Temperature 97.9 F Pulse Rate 77 Respiratory Rate 16 Blood Pressure 133/81 Pulse Oximetry 98 <Remberto Kemp DO - Last Filed: 09/25/20 18:53> Orders Ordered: ED Orders 09/25/20 17:33 COVID19 -Nasal swab/Pre-Proc Stat Vital Signs Vital signs: Vital Signs - 8 hr 09/25/20 17:18 Temperature 97.9 F Pulse Rate 77 Respiratory Rate 16 Blood Pressure 133/81 Pulse Oximetry 98 MDM - URI/Sore Throat <Jay Avila PA-C - Last Filed: 09/25/20 18:22> Lab Data Labs: Lab Results 09/25/20 Range/Units 17:33 SARS-CoV-2 (PCR) Negative (Negative) <Remberto Kemp DO - Last Filed: 09/25/20 18:53> Lab Data Labs: Lab Results 09/25/20 Range/Units 17:33 SARS-CoV-2 (PCR) Negative (Negative) Discharge Plan Departure Patient Disposition: Home Clinical Impression: Upper respiratory infection Qualifiers: URI type: unspecified URI Qualified Code(s): J06.9 - Acute upper respiratory infection, unspecified Activity Restrictions/Additional Instructions: It was nice to meet you this evening. Please continue to use [id number] therapy for symptomatic management including Mucinex, throat lozenges, warm tea and honey, etc.. Your COVID test came back negative today. Good luck with your treatment and I hope that you maintain your sobriety. Thank you Jay Avila PAC Prescriptions: No Action ondansetron 4 mg tablet,disintegrating 4 mg PO Q6-8H PRN (Reason: nausea and vomiting) Qty: 30 RF: 0 diclofenac sodium 75 mg tablet,delayed release (DR/EC) 75 mg PO BID Qty: 180 RF: 1 naltrexone 50 mg tablet 50 mg PO DAILY RF: 0 bupropion HCl 150 mg tablet extended release 24 hr 300 mg PO RF: 0 diclofenac sodium 1 % gel 2 gram TOP QID PRN (Reason: pain and inflammation) Qty: 100 RF: 0 lidocaine 5 % adhesive patch,medicated 1 patch TOP Q24H PRN (Reason: pain) Qty: 30 RF: 0 benzonatate 100 mg capsule 100 mg PO TID PRN (Reason: cough) Qty: 14 RF: 0 cyclobenzaprine 10 mg tablet 10 mg PO TID PRN (Reason: muscle spasm) Qty: 10 RF: 0 ibuprofen 600 mg tablet 600 mg PO Q6H PRN (Reason: fever or pain) Qty: 24 RF: 0 <Remberto Kemp, DO - Last Filed: 09/25/20 18:53> Cosign ED Attending Cosignature Attestation: Dr Kemp Co-Sign Statement: I was available for consultation during this patient's emergency department visit. This chart is signed by myself for administrative purposes only. I did not have direct contact with this patient during this visit. They were seen independently by the APC.
== END 2020-09-25 18:27 | disposition home or self-care (01) ==
PROVIDERS: Emergency Medicine; Emergency Provider Physician Assistant
DX: J06.9 Acute upper respiratory infection, unspecified (principal); R05 Cough; Z20.822 Contact with and (suspected) exposure to COVID-19
CPT/HCPCS: 87635; 99281; 99282; C9803

== ENCOUNTER 2020-11-06 18:28 | Emergency (ER) | payer OTHER, MEDICAID, SELFPAY ==
[2020-11-06 18:47] VITALS: BP 141/80; PULSE 88; RESP 18; TEMP 36.6; O2SAT 98
[2020-11-06 19:49] LABS: COVID19 -Nasal RAPID Negative (Negative)
--- NOTE | 2020-11-06 20:55 | ED.RECABL ---
HPI - Recheck/Abnormal Lab/Rx General Chief Complaint: Recheck/Abnormal Lab/Rx Stated Complaint: covid test Time Seen by Provider: 11/06/20 20:33 Source: patient Mode of arrival: Ambulatory Limitations: no limitations History of Present Illness HPI narrative: Patient is a 35-year-old male who has history of depression presenting today with family for COVID testing. Son was possibly exposed at daycare. However no and has symptoms. He is fully vaccinated. He denies any symptoms at all. Related Data Home Medications Medication Instructions Recorded Confirmed bupropion HCl 150 mg 24 hr tablet, 300 mg PO tab 03/22/20 09/07/20 extended release naltrexone 50 mg tablet 50 mg PO DAILY 03/22/20 09/07/20 Previous Rx's Medication Instructions Recorded diclofenac sodium 1 % topical gel 2 gram TOP QID PRN #100 gram 07/03/19 lidocaine 5 % topical patch 1 patch TOP Q24H PRN #30 each 11/11/19 ondansetron 4 mg disintegrating 4 mg PO Q6-8H PRN #30 tab 01/26/20 tablet cyclobenzaprine 10 mg tablet 10 mg PO TID PRN #10 tab 03/20/20 ibuprofen 600 mg tablet 600 mg PO Q6H PRN #24 tab 03/20/20 benzonatate 100 mg capsule 100 mg PO TID PRN #14 cap 08/31/20 diclofenac sodium 75 mg 75 mg PO BID #180 tab 10/31/20 tablet,delayed release Allergies Allergy/AdvReac Type Severity Reaction Status Date / Time No Known Drug Allergies Allergy Verified 09/25/20 17:26 Review of Systems Review of Systems Narrative: GENERAL: Denies chills,fever HEENT: Denies throat pain RESPIRATORY: Denies dyspnea, cough, wheezing CARDIOVASCULAR: Denies chest pain, palpitations GASTROINTESTINAL: Denies nausea, vomiting MUSCULOSKELETAL: Denies extremity pain, injury SKIN: No rash, no laceration, no pruritus NEUROLOGIC: Denies weakness, dizziness, headache, numbness 8 point review of systems is negative except for those stated above and HPI Patient History Medical History Ankle pain, left Arthritis Constipation Depression Obesity (BMI 35.0-39.9 without comorbidity) PTSD (post-traumatic stress disorder) Substance abuse Social History (Reviewed 08/12/21 @ 03:07 by FREDI Aguayo Smoking Status: Current every day smoker Smoking Status: Current every day smoker tobacco type: cigarettes alcohol intake frequency: holidays/special occasions only Substance Use Type: does not use Exam Initial Vital Signs Initial Vital Signs: Vital Signs Temperature 97.8 F 11/06/20 18:47 Pulse Rate 88 11/06/20 18:47 Respiratory Rate 18 11/06/20 18:47 Blood Pressure 141/80 H 11/06/20 18:47 Pulse Oximetry 98 11/06/20 18:47 GENERAL: Alert well-appearing 35 male no acute distress CARDIOVASCULAR: peripheral pulses in tact, cap refill <2 sec RESPIRATORY: No respiratory distress, speaks in full sentences without difficulty EXTREMITIES: Normal range of motion, no clubbing or edema. Neurovascularly intact NEUROLOGICAL: Cranial nerves II through XII grossly intact. Normal gait and speech. SKIN: Warm, dry, no petechiae, no rashes or lesions. Course Orders Ordered: ED Orders 11/06/20 18:46 COVID19 -Nasal swab/Pre-Proc Stat Vital Signs Vital signs: Vital Signs - 8 hr 11/06/20 18:47 Temperature 97.8 F Pulse Rate 88 Respiratory Rate 18 Blood Pressure 141/80 H Pulse Oximetry 98 MDM - Recheck/Abnormal Lab/Rx Lab Data Labs: Lab Results 11/06/20 Range/Units 18:46 SARS-CoV-2 (PCR) Negative (Negative) Discharge Plan Departure Patient Disposition: Home Clinical Impression: Worried well Instructions: Can COVID-19 be prevented? Activity Restrictions/Additional Instructions: *You have been diagnosed with COVID test is negative today *What to do: Please continue to wear mask and take precautions *Continue to take medications as directed *Follow up with your primary care provider in 2-3 days *Return to ER if you should have increasing shortness of breath, fever, chills or any new, worsening or concerning symptoms Prescriptions: No Action ondansetron 4 mg tablet,disintegrating 4 mg PO Q6-8H PRN (Reason: nausea and vomiting) Qty: 30 RF: 0 diclofenac sodium 75 mg tablet,delayed release (DR/EC) 75 mg PO BID Qty: 180 RF: 1 naltrexone 50 mg tablet 50 mg PO DAILY RF: 0 bupropion HCl 150 mg tablet extended release 24 hr 300 mg PO RF: 0 diclofenac sodium 1 % gel 2 gram TOP QID PRN (Reason: pain and inflammation) Qty: 100 RF: 0 lidocaine 5 % adhesive patch,medicated 1 patch TOP Q24H PRN (Reason: pain) Qty: 30 RF: 0 benzonatate 100 mg capsule 100 mg PO TID PRN (Reason: cough) Qty: 14 RF: 0 cyclobenzaprine 10 mg tablet 10 mg PO TID PRN (Reason: muscle spasm) Qty: 10 RF: 0 ibuprofen 600 mg tablet 600 mg PO Q6H PRN (Reason: fever or pain) Qty: 24 RF: 0
== END 2020-11-06 21:02 | disposition home or self-care (01) ==
PROVIDERS: Emergency Provider Emergency Medicine
DX: Z20.822 Contact with and (suspected) exposure to COVID-19 (principal)
CPT/HCPCS: 87635; 99281; C9803

== ENCOUNTER 2021-01-10 21:28 | Emergency (ER) | payer OTHER, MEDICAID, SELFPAY ==
[2021-01-10 21:48] VITALS: BP 135/78; PULSE 70; RESP 17; TEMP 36.7; O2SAT 99; BMI 39.0
[2021-01-10 22:13] LABS: COVID19 -Nasal RAPID Negative (Negative)
--- NOTE | 2021-01-10 22:40 | ED_ITS ---
HPI - URI/Sore Throat General Chief Complaint: Upper Respiratory Symptoms Stated Complaint: poss covid/neck pain/cough Time Seen by Provider: 01/10/21 22:39 Source: patient Mode of arrival: Ambulatory Limitations: no limitations History of Present Illness HPI Narrative: 35-year-old male daily smoker is vaccinated against COVID and presents with runny nose, sore throat and a dry hacking cough for the past week or so. He denies any nausea, vomiting or diarrhea. He denies any trouble urinating. He states he has had some neck and upper back pain in the absence of any injury. He states that seems to be worse when he moves and improves with rest. He denies any numbness, tingling or weakness. He has experienced little to no relief after taking Tylenol and Motrin. Related Data Home Medications Medication Instructions Recorded Confirmed bupropion HCl 150 mg 24 hr tablet, 300 mg PO tab 03/22/20 09/07/20 extended release naltrexone 50 mg tablet 50 mg PO DAILY 03/22/20 09/07/20 Previous Rx's Medication Instructions Recorded diclofenac sodium 1 % topical gel 2 gram TOP QID PRN #100 gram 07/03/19 lidocaine 5 % topical patch 1 patch TOP Q24H PRN #30 each 11/11/19 ondansetron 4 mg disintegrating 4 mg PO Q6-8H PRN #30 tab 01/26/20 tablet cyclobenzaprine 10 mg tablet 10 mg PO TID PRN #10 tab 03/20/20 ibuprofen 600 mg tablet 600 mg PO Q6H PRN #24 tab 03/20/20 benzonatate 100 mg capsule 100 mg PO TID PRN #14 cap 08/31/20 diclofenac sodium 75 mg 75 mg PO BID #180 tab 10/31/20 tablet,delayed release ketorolac 10 mg tablet 10 mg PO Q6H PRN #14 tab 01/10/21 lidocaine 5 % topical patch 1 patch TOP DAILY #15 each 01/10/21 (Lidoderm) Allergies Allergy/AdvReac Type Severity Reaction Status Date / Time No Known Drug Allergies Allergy Verified 09/25/20 17:26 Review of Systems Review of Systems Narrative: GENERAL: See HPI HEENT: See HPI RESPIRATORY: Denies dyspnea, cough, wheezing, hemoptysis, sputum. CARDIOVASCULAR: Denies chest pain, palpitations, orthopnea, edema, GASTROINTESTINAL: Denies nausea, vomiting, abdominal pain, diarrhea, constipation, melena. : Denies dysuria, frequency, incontinence, hematuria, urinary retention. MUSCULOSKELETAL: see HPI SKIN: Denies rash, skin lesions, or other NEUROLOGIC: Denies weakness, headache, numbness, change in speech, confusion, seizures, incoordination. PSYCHIATRIC: No concerning psychosocial issues. 12 point review of systems is negative except for those stated above Patient History Medical History Ankle pain, left Arthritis Constipation Depression Obesity (BMI 35.0-39.9 without comorbidity) PTSD (post-traumatic stress disorder) Substance abuse Social History Smoking Status: Current every day smoker Smoking Status: Current every day smoker tobacco type: cigarettes alcohol intake frequency: holidays/special occasions only Substance Use Type: does not use Exam Narrative Exam Narrative: GENERAL: [35 year old patient appears stated age. Well-developed patient, in mild distress. HEAD: Atraumatic. Normocephalic. EYES: Pupils equal round and reactive. Extraocular motions intact. No scleral icterus. No injection or drainage. ENT: Nose without bleeding, purulent drainage. Throat without erythema, tonsillar hypertrophy or exudate. Airway patent. NECK: Trachea midline. Tender in the paraspinal musculature, no midline or bony tenderness, step-offs or change with axial load CARDIOVASCULAR: Regular rate and rhythm without murmurs, gallops, or rubs. RESPIRATORY: Clear to auscultation. Breath sounds equal bilaterally. No wheezes, rales, or rhonchi. GASTROINTESTINAL: Abdomen soft, non-tender, nondistended. EXTREMITIES: No edema or joint tenderness. BACK: Nontender without deformity or crepitance. No flank tenderness. NEURO: AOx3. SKIN: No rash or erythema of visible areas Initial Vital Signs Initial Vital Signs: Vital Signs Temperature 98.1 F 01/10/21 21:48 Pulse Rate 70 01/10/21 21:48 Respiratory Rate 17 01/10/21 21:48 Blood Pressure 135/78 01/10/21 21:48 Pulse Oximetry 99 01/10/21 21:48 Course Orders Ordered: ED Orders 01/10/21 21:50 COVID19 -Nasal swab/Pre-Proc Stat 01/10/21 22:49 Chest [XR chest 2V] Stat Vital Signs Vital signs: Vital Signs - 8 hr 01/10/21 21:48 Temperature 98.1 F Pulse Rate 70 Respiratory Rate 17 Blood Pressure 135/78 Pulse Oximetry 99 MDM - URI/Sore Throat Lab Data Labs: Lab Results 01/10/21 Range/Units 21:50 SARS-CoV-2 (PCR) Negative (Negative) Imaging Data Chest x-ray: Radiologist's Impression: Launch?Image [address] [address] XRay Report Signed Patient: Keshav Cortes MR#: [id number] : 1985 Acct:[id number] Age/Sex: 35 / M Date of Service: 01/10/21 Loc: ED Accession Number: [id number] ?? Procedure: XR chest 2V Ordering Provider: Humberto Harris D.O. PROCEDURE:? XR CHEST 2V ? INDICATIONS:? cough ? TECHNIQUE:? 2 views of the chest were acquired.? ? COMPARISON:? [facility], CR, XR CHEST 1V, 06/13/2020, 10:19. ? FINDINGS:? ? Surgical changes and devices:? None.? ? Lungs and pleura:? Lungs are clear.? No pleural effusions or pneumothorax.? ? Mediastinum:? Mediastinal contours are normal.? Heart size is normal.? ? Bones and chest wall:? No suspicious bony abnormalities.? Soft tissues appear unremarkable.? ? IMPRESSION:? No acute cardiopulmonary abnormality. ? ? Dictated by: Deven Reynolds M.D. on 01/10/2021 at 23:00 ? ? Approved by: Deven Reynolds M.D. on 01/10/2021 at 23:00 ? Discharge Plan Departure Patient Disposition: Home Clinical Impression: Cough, Neck pain Instructions: DI for Cough -- Adult, DI for Neck Pain Activity Restrictions/Additional Instructions: *You have been diagnosed with [upper respiratory complaints with very reassuring history and physical. Your COVID swab is negative chest x-ray shows no pneumonia *What to do: *Please continue to take your regular medications as directed. [x ] New medication prescriptions sent to your pharmacy: [ [facility] in [place]] [ ] New medication written as a paper prescription [ ] No new medications given *Please follow up with your primary care provider in 2-3 days, call for an appoi ntment. Let them know you were seen in the Emergency Department and that we ask that you be seen in follow up. We will electronically transmit a record of today's note if your PCP is in our system *If you do not have a primary care provider please contact the [facility] Resource line at [phone]. They will ask some questions about your medical history and help get you set up with a doctor in the community. *Return to Emergency Department if you should have any new, worsening or concerning symptoms, such as [fever greater than 101 F, shaking chills, worsening pain, persistent vomiting or other bothersome symptoms] Prescriptions: New ketorolac 10 mg tablet 10 mg PO Q6H PRN (Reason: pain) Qty: 14 0RF lidocaine [Lidoderm] 5 % adhesive patch,medicated 1 patch TOP DAILY Qty: 15 0RF Rx Instructions: leave on most painful area for 12 hrs No Action ondansetron 4 mg tablet,disintegrating 4 mg PO Q6-8H PRN (Reason: nausea and vomiting) Qty: 30 0RF diclofenac sodium 75 mg tablet,delayed release (DR/EC) 75 mg PO BID Qty: 180 1RF naltrexone 50 mg tablet 50 mg PO DAILY 0RF bupropion HCl 150 mg tablet extended release 24 hr 300 mg PO 0RF diclofenac sodium 1 % gel 2 gram TOP QID PRN (Reason: pain and inflammation) Qty: 100 0RF Rx Instructions: use sparingly; apply to single elbow, knee, wrist or hand; for hand includes palm/fingers/back of hand lidocaine 5 % adhesive patch,medicated 1 patch TOP Q24H PRN (Reason: pain) Qty: 30 0RF Rx Instructions: leave on most painful area for up to 12 hrs benzonatate 100 mg capsule 100 mg PO TID PRN (Reason: cough) Qty: 14 0RF cyclobenzaprine 10 mg tablet 10 mg PO TID PRN (Reason: muscle spasm) Qty: 10 0RF ibuprofen 600 mg tablet 600 mg PO Q6H PRN (Reason: fever or pain) Qty: 24 0RF
--- NOTE | 2021-01-10 22:49 | DI.RAD.S_ITS ---
PROCEDURE: XR CHEST 2V INDICATIONS: cough TECHNIQUE: 2 views of the chest were acquired. COMPARISON: [facility], CR, XR CHEST 1V, 06/13/2020, 10:19. FINDINGS: Surgical changes and devices: None. Lungs and pleura: Lungs are clear. No pleural effusions or pneumothorax. Mediastinum: Mediastinal contours are normal. Heart size is normal. Bones and chest wall: No suspicious bony abnormalities. Soft tissues appear unremarkable. IMPRESSION: No acute cardiopulmonary abnormality. Dictated by: Deven Reynolds M.D. on 01/10/2021 at 23:00 Approved by: Deven Reynolds M.D. on 01/10/2021 at 23:00
--- NOTE | 2021-01-10 23:08 | PC.NURSE ---
Pt reported neck/upper back pain. Declined offer of ibuprofen. Dr Harris notified.
== END 2021-01-10 23:54 | disposition home or self-care (01) ==
PROVIDERS: Emergency Provider Emergency Medicine
DX: R05.9 Cough, unspecified (principal); M54.2 Cervicalgia; J02.9 Acute pharyngitis, unspecified; Z20.822 Contact with and (suspected) exposure to COVID-19
CPT/HCPCS: 71046; 87635; 99283; C9803

== ENCOUNTER 2021-01-30 18:42 | Emergency (ER) | payer OTHER, MEDICAID, SELFPAY ==
--- NOTE | 2021-01-30 18:50 | DI.RAD.S_ITS ---
PROCEDURE: XR ANKLE LT MIN 3V INDICATIONS: injury TECHNIQUE: 3 views of the ankle were acquired. COMPARISON: [facility], CR, XR ANKLE LT MIN 3V, 05/24/2020, 13:56. [facility], CR, XR ANKLE LT MIN 3V, 03/22/2020, 13:44. FINDINGS: Bones: Distal fibula ORIF is unchanged. No plate lift off. No periscrew lucency. No acute fractures or dislocations. Stable findings of prior fractures. Ankle mortise is normally aligned. No suspicious bony lesions. Soft tissues: No tibiotalar joint effusion. Achilles tendon appears normal. IMPRESSION: No acute fracture. Stable distal fibula ORIF. Dictated by: Jose Alfredo Scanlon M.D. on 01/30/2021 at 19:10 Approved by: Jose Alfredo Scanlon M.D. on 01/30/2021 at 19:12
[2021-01-30 18:51] VITALS: BP 152/88; PULSE 88; RESP 17; TEMP 36.8; O2SAT 99
--- NOTE | 2021-01-30 19:25 | ED_ITS ---
HPI - Extremity Injury (Lower) General Chief Complaint: Extremity Injury, Lower Stated Complaint: Lt Ankle Injury Time Seen by Provider: 01/30/21 19:24 Source: patient Mode of arrival: Ambulatory History of Present Illness HPI Narrative: Patient is a 35-year-old male who presents with worsening left ankle pain. He has chronic ongoing left ankle pain he said surgery in the past usually takes diclofenac but he recently ran out of it however his is able to get a refill of his prescription today but he has not been able to pick it up. He said he ?iam his ankle the other day and since then it has been hurting. He is on his feet from 5:00 a.m. on. He has not been able to elevate or ice. He has a history methamphetamine abuse his pain is so bad he is considering using again but he has been sober and he does not want to start using. Related Data Home Medications Medication Instructions Recorded Confirmed bupropion HCl 150 mg 24 hr tablet, 300 mg PO tab 03/22/20 09/07/20 extended release naltrexone 50 mg tablet 50 mg PO DAILY 03/22/20 09/07/20 Previous Rx's Medication Instructions Recorded diclofenac sodium 1 % topical gel 2 gram TOP QID PRN #100 gram 07/03/19 lidocaine 5 % topical patch 1 patch TOP Q24H PRN #30 each 11/11/19 ondansetron 4 mg disintegrating 4 mg PO Q6-8H PRN #30 tab 01/26/20 tablet cyclobenzaprine 10 mg tablet 10 mg PO TID PRN #10 tab 03/20/20 ibuprofen 600 mg tablet 600 mg PO Q6H PRN #24 tab 03/20/20 benzonatate 100 mg capsule 100 mg PO TID PRN #14 cap 08/31/20 diclofenac sodium 75 mg 75 mg PO BID #180 tab 10/31/20 tablet,delayed release ketorolac 10 mg tablet 10 mg PO Q6H PRN #14 tab 01/10/21 lidocaine 5 % topical patch 1 patch TOP DAILY #15 each 01/10/21 (Lidoderm) Allergies Allergy/AdvReac Type Severity Reaction Status Date / Time No Known Drug Allergies Allergy Verified 01/30/21 18:52 Review of Systems Review of Systems Narrative: GENERAL: Denies chills,fever HEENT: Denies throat pain RESPIRATORY: Denies dyspnea, cough, wheezing CARDIOVASCULAR: Denies chest pain, palpitations GASTROINTESTINAL: Denies nausea, vomiting MUSCULOSKELETAL: See HPI SKIN: No rash, no laceration, no pruritus NEUROLOGIC: Denies weakness, dizziness, headache, numbness 8 point review of systems is negative except for those stated above and HPI Patient History Medical History Ankle pain, left Arthritis Constipation Depression Obesity (BMI 35.0-39.9 without comorbidity) PTSD (post-traumatic stress disorder) Substance abuse Social History Smoking Status: Current every day smoker Smoking Status: Current every day smoker tobacco type: cigarettes alcohol intake frequency: holidays/special occasions only Substance Use Type: does not use Exam Initial Vital Signs Initial Vital Signs: Vital Signs Temperature 98.3 F 01/30/21 18:51 Pulse Rate 88 01/30/21 18:51 Respiratory Rate 17 01/30/21 18:51 Blood Pressure 152/88 H 01/30/21 18:51 Pulse Oximetry 99 01/30/21 18:51 GENERAL: Well-appearing, well-nourished and in no acute distress. CARDIOVASCULAR: peripheral pulses in tact, cap refill <2 sec RESPIRATORY: No respiratory distress, speaks in full sentences without difficulty EXTREMITIES: Normal range of motion, no clubbing or edema. Neurovascularly intact Left lower extremity mild tenderness bilateral malleoli Achilles intact to increase dorsal plantar flexion secondary to pain distal pulses intact no significant swelling redness NEUROLOGICAL: Cranial nerves II through XII grossly intact. Normal gait and speech. SKIN: Warm, dry, no petechiae, no rashes or lesions. Course Orders Ordered: ED Orders 01/30/21 18:50 XR ankle LT min 3V Stat Discontinued Medications Ketorolac Tromethamine (Ketorolac 30 Mg/Ml Vial) 30 mg IM NOW ONE Stop: 01/30/21 19:25 Last Admin: 01/30/21 19:34 Dose: 30 mg Documented by: BELLA Vital Signs Vital signs: Vital Signs - 8 hr 01/30/21 18:51 Temperature 98.3 F Pulse Rate 88 Respiratory Rate 17 Blood Pressure 152/88 H Pulse Oximetry 99 MDM - Extremity Injury (Lower) Imaging Data Extremity x-ray #1: Radiologist's Impression: PROCEDURE:? XR ANKLE LT MIN 3V ? INDICATIONS:? injury ? TECHNIQUE:? 3 views of the ankle were acquired.? ? COMPARISON:? [facility], CR, XR ANKLE LT MIN 3V, 05/24/2020, 13:56.? [facility], CR, XR ANKLE LT MIN 3V, 03/22/2020, 13:44. ? FINDINGS:? ? Bones:? Distal fibula ORIF is unchanged.? No plate lift off.? No periscrew lucency.? No acute fractures or dislocations.? Stable findings of prior fractures.? Ankle mortise is normally aligned.? No suspicious bony lesions.? ? Soft tissues:? No tibiotalar joint effusion.? Achilles tendon appears normal.? ? ? IMPRESSION:? No acute fracture.? ? Stable distal fibula ORIF. ? ? ? Dictated by: Jose Alfredo Scanlon M.D. on 01/30/2021 at 19:10 ? ? Discharge Plan Departure Patient Disposition: Home Clinical Impression: Ankle pain, left Instructions: Ankle Sprain Activity Restrictions/Additional Instructions: With *You have been diagnosed with acute on chronic left ankle pain *What to do: Recommend elevating and icing as often as possible. 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 and take as directed *Follow up with your primary care provider in 2-3 days *Return to ER if you should have inability to walk, increasing pain swelling or any new, worsening or concerning symp is Prescriptions: No Action ondansetron 4 mg tablet,disintegrating 4 mg PO Q6-8H PRN (Reason: nausea and vomiting) Qty: 30 0RF diclofenac sodium 75 mg tablet,delayed release (DR/EC) 75 mg PO BID Qty: 180 1RF naltrexone 50 mg tablet 50 mg PO DAILY 0RF bupropion HCl 150 mg tablet extended release 24 hr 300 mg PO 0RF diclofenac sodium 1 % gel 2 gram TOP QID PRN (Reason: pain and inflammation) Qty: 100 0RF Rx Instructions: use sparingly; apply to single elbow, knee, wrist or hand; for hand includes palm/fingers/back of hand lidocaine 5 % adhesive patch,medicated 1 patch TOP Q24H PRN (Reason: pain) Qty: 30 0RF Rx Instructions: leave on most painful area for up to 12 hrs benzonatate 100 mg capsule 100 mg PO TID PRN (Reason: cough) Qty: 14 0RF ketorolac 10 mg tablet 10 mg PO Q6H PRN (Reason: pain) Qty: 14 0RF lidocaine [Lidoderm] 5 % adhesive patch,medicated 1 patch TOP DAILY Qty: 15 0RF Rx Instructions: leave on most painful area for 12 hrs cyclobenzaprine 10 mg tablet 10 mg PO TID PRN (Reason: muscle spasm) Qty: 10 0RF ibuprofen 600 mg tablet 600 mg PO Q6H PRN (Reason: fever or pain) Qty: 24 0RF Referrals: Mahnaz Cavazos MD [Physician] -
[2021-01-30] MEDS: KETOROLAC 30 MG/ML VIAL IM (19:34)
== END 2021-01-30 19:41 | disposition home or self-care (01) ==
PROVIDERS: Emergency Provider Emergency Medicine
DX: M25.572 Pain in left ankle and joints of left foot (principal); F17.210 Nicotine dependence, cigarettes, uncomplicated
CPT/HCPCS: 73610; 96372; 99283; J1885

== ENCOUNTER 2021-02-23 17:48 | Emergency (ER) | payer OTHER, MEDICAID, SELFPAY ==
[2021-02-23] VITALS (9 sets, daily range): BP systolic 115–153; BP diastolic 60–96; PULSE 64–79; RESP 22; TEMP 36.2; O2SAT 86–99
--- NOTE | 2021-02-23 | DI.CT.S_ITS ---
PROCEDURE: CT ABDOMEN PELVIS W CON INDICATIONS: Generalized abdominal pain with blood in stool TECHNIQUE: After the administration of intravenous contrast, axial sections acquired from the lung bases to the pubic symphysis. Coronal and sagittal reformats were performed. For radiation dose reduction, the following was used: automated exposure control, adjustment of mA and/or kV according to patient size. COMPARISON: None. FINDINGS: Image quality: Excellent. Lung bases: Unremarkable. Heart: No significant findings. ABDOMEN: Liver: Moderate diffuse hepatic steatosis.. Gallbladder: Partially contracted. Question subtle gallstones. Biliary ducts: Unremarkable. Pancreas: Unremarkable. Spleen: Unremarkable. Adrenal Glands: Unremarkable. Kidneys and Ureters: Unremarkable. Stomach and Bowel: Stomach, small bowel loops, and colon are unremarkable. Peritoneum: No abnormal intraperitoneal fluid. No free air. Ventral Wall: No hernias. Abdominal Nodes: No retroperitoneal or mesenteric adenopathy by size criteria. Vessels: Aorta and inferior vena cava are normal in size. PELVIS: Pelvic Organs: Unremarkable. Bladder: Unremarkable. Pelvic Nodes: No enlarged lymph nodes. Miscellaneous: Small bilateral fat containing inguinal hernias. Bones: Lumbar degenerative change. No lytic or blastic bony lesions. No compression fractures. At least moderate and possibly severe canal stenosis at L4-L5. IMPRESSION: 1. Moderate diffuse hepatic steatosis. 2. Small bilateral fat containing inguinal hernias. 3. No evidence acute abdominal process. 4. Incidental note made of at least moderate, and possibly severe canal stenosis at L4-L5. 5. Possible cholelithiasis. Dictated by: Miguelangel Lara M.D. on 02/23/2021 at 19:25 Approved by: Miguelangel Lara M.D. on 02/23/2021 at 19:28
[2021-02-23 18:47] LABS: Alanine Aminotransferase 52 IU/L (<50); Albumin 4.2 g/dL (3.5-5.0); Albumin Globulin Ratio 1.3 (1.0-2.8); Alkaline Phosphatase 69 U/L (38-126); Aspartate Aminotransferase 37 IU/L (17-59); BUN Creatinine Ratio 15.3 (6-22); Bilirubin Total 0.3 mg/dL (0.2-1.3); Blood Urea Nitrogen 13 mg/dL (9-20); Calcium 9.3 mg/dL (8.4-10.2); Carbon Dioxide 31 mmol/L (22-32); Chloride 108 mmol/L (98-107); Estimated Glomerular Filt Rate > 60.0 mL/min (>60); Globulin 3.3 g/dL (1.7-4.1); Glucose 131 mg/dL (70-100); HEMOLYSIS < 15 (0-50); Lipase 184 U/L (23-300); Potassium 4.7 mmol/L (3.4-5.1); Sodium 140 mmol/L (137-145); Total Protein 7.5 g/dL (6.3-8.2)
[2021-02-23 18:51] LABS: Add Manual Diff / Slide Review NO; Basophils Absolute Auto 100 /uL (0-100); Basophils Percent Auto 1.2 % (0-2); Eosinophils Absolute Auto 400 /uL (0-450); Eosinophils Percent Auto 4.5 % (2-4); Hematocrit 40.4 % (41-53); Lymphocytes Absolute Auto 3000 /uL (1100-4500); Lymphocytes Percent Auto 37.7 % (25-40); Mean Corpuscular HGB Conc 34.6 % (30-36); Mean Corpuscular Volume 89.7 fL (80-100); Monocytes Absolute Auto 500 /uL (0-900); Monocytes Percent Auto 6.2 % (3-14); Neutrophils Absolute Auto 4100 /uL (1500-7000); Neutrophils Percent Auto 50.4 % (50-75); Platelet Count 222 X10^3/uL (150-400); Red Cell Distribution Width 12.8 % (11.6-14.8); White Blood Cell Count 8.1 X10^3/uL (4.5-11.0)
--- NOTE | 2021-02-23 19:00 | ED.GENADULT ---
HPI - General Adult General Chief complaint: Abdominal Pain Stated complaint: Blood in stool/burning abd pain x5days Time Seen by Provider: 02/23/21 18:49 Source: patient Mode of arrival: Ambulatory History of Present Illness HPI narrative: Patient is a 35-year-old male who is here for evaluation of approximately 5 days of abdominal discomfort and blood in his stool and also pain when he has bowel movements. No urinary symptoms. No prior abdominal surgeries. No nausea vomiting. No recent travel. No recent antibiotics. Has not tried anything for the symptoms prior to arrival. He states that the pain in the blood in his stool happens every time he goes to the bathroom. He has had alternating diarrhea constipation. Pain is all over his abdomen. Related Data Home Medications Medication Instructions Recorded Confirmed bupropion HCl 150 mg 24 hr tablet, 300 mg PO tab 03/22/20 09/07/20 extended release naltrexone 50 mg tablet 50 mg PO DAILY 03/22/20 09/07/20 Previous Rx's Medication Instructions Recorded diclofenac sodium 1 % topical gel 2 gram TOP QID PRN #100 gram 07/03/19 lidocaine 5 % topical patch 1 patch TOP Q24H PRN #30 each 11/11/19 ondansetron 4 mg disintegrating 4 mg PO Q6-8H PRN #30 tab 01/26/20 tablet cyclobenzaprine 10 mg tablet 10 mg PO TID PRN #10 tab 03/20/20 ibuprofen 600 mg tablet 600 mg PO Q6H PRN #24 tab 03/20/20 benzonatate 100 mg capsule 100 mg PO TID PRN #14 cap 08/31/20 diclofenac sodium 75 mg 75 mg PO BID #180 tab 10/31/20 tablet,delayed release ketorolac 10 mg tablet 10 mg PO Q6H PRN #14 tab 01/10/21 lidocaine 5 % topical patch 1 patch TOP DAILY #15 each 01/10/21 (Lidoderm) dicyclomine 10 mg capsule 10 mg PO TID PRN #14 cap 02/23/21 Allergies Allergy/AdvReac Type Severity Reaction Status Date / Time No Known Drug Allergies Allergy Verified 01/30/21 18:52 Review of Systems Constitutional Constitutional: Denies fever(s) Gastrointestinal Gastrointestinal: Reports as per HPI and Reports system reviewed and no additional complaints, except as documented Genitourinary Genitourinary: Reports system reviewed and no additional complaints, except as documented Integumentary/Breasts Skin/Breast: Reports system reviewed and no additional complaints, except as documented Hematologic/Lymphatic On Anticoagulants: No Patient History Medical History Ankle pain, left Arthritis Constipation Depression Obesity (BMI 35.0-39.9 without comorbidity) PTSD (post-traumatic stress disorder) Substance abuse Social History Smoking Status: Current every day smoker Smoking Status: Current every day smoker tobacco type: cigarettes alcohol intake frequency: holidays/special occasions only Substance Use Type: does not use Exam Initial Vital Signs Initial Vital Signs: Vital Signs Temperature 97.2 F L 02/23/21 18:09 Pulse Rate 75 02/23/21 18:09 Respiratory Rate 22 02/23/21 18:09 Blood Pressure 145/96 H 02/23/21 18:09 Pulse Oximetry 99 02/23/21 18:09 Resp Effort & Inspection: normal respiratory effort Auscultation: clear to auscultation bilaterally Cardio Rate: regular rate Rhythm: regular rhythm GI Inspection: normal to inspection Palpation: soft, No firm and tender (Diffuse tenderness) Rectal Exam: visual inspection normal and heme negative stool Skin General: no rashes or lesions noted Extrem General: normal to inspection and capillary refill normal Psych Appearance: grossly normal and well kempt Course Orders Ordered: ED Orders 02/23/21 18:24 Complete Blood Count AUTO DIFF Stat Comprehensive Metabolic Panel Stat Lipase Stat Discontinued Medications Sodium Chloride (Normal Saline 0.9%) 1,000 mls @ 1,000 mls/hr IV BOLUS ONE Stop: 02/23/21 19:59 Last Infusion: 02/23/21 20:12 Dose: 0 mls/hr Documented by: Admin: 02/23/21 19:07 Dose: 1,000 mls/hr Documented by: JEANNE Ketorolac Tromethamine (Ketorolac 30 Mg/Ml Vial) 30 mg IV NOW ONE Stop: 02/23/21 20:12 Last Admin: 02/23/21 20:25 Dose: 30 mg Documented by: ELIS Vital Signs Vital signs: Vital Signs - 8 hr 02/23/21 18:09 02/23/21 18:55 02/23/21 19:00 Temperature 97.2 F L Pulse Rate 75 76 75 Respiratory Rate 22 Blood Pressure 145/96 H 149/80 H Pulse Oximetry 99 98 96 02/23/21 19:03 02/23/21 19:30 02/23/21 20:00 Temperature Pulse Rate 76 65 76 Respiratory Rate Blood Pressure 153/89 H 141/70 H Pulse Oximetry 97 98 98 02/23/21 20:01 02/23/21 21:01 02/23/21 21:02 Temperature Pulse Rate 68 79 64 Respiratory Rate Blood Pressure 139/60 115/60 Pulse Oximetry 97 86 L 97 Medical Decision Making Lab Data Lab results reviewed: Yes I reviewed the patient's lab results. Result diagrams: 02/23/21 18:24 02/23/21 18:24 Labs: Lab Results 02/23/21 02/23/21 Range/Units 18:24 18:24 WBC 8.1 (4.5-11.0) X10^3/uL RBC 4.50 (4.5-5.9) X10^6/uL Hgb 14.0 (13.5-17.5) g/dL Hct 40.4 L (41-53) % MCV 89.7 (80-100) fL MCH 31.0 (26-34) PG MCHC 34.6 (30-36) % RDW 12.8 (11.6-14.8) % Plt Count 222 (150-400) X10^3/uL Neut % (Auto) 50.4 (50-75) % Lymph % (Auto) 37.7 (25-40) % Bowman % (Auto) 6.2 (3-14) % Eos % (Auto) 4.5 H (2-4) % Baso % (Auto) 1.2 (0-2) % Neut # (Auto) 4100 (5479-4118) /uL Lymph # (Auto) 3000 (8436-8086) /uL Bowman # (Auto) 500 (0-900) /uL Eos # (Auto) 400 (0-450) /uL Baso # (Auto) 100 (0-100) /uL Sodium 140 (137-145) mmol/L Potassium 4.7 (3.4-5.1) mmol/L Chloride 108 H (98-107) mmol/L Carbon Dioxide 31 (22-32) mmol/L BUN 13 (9-20) mg/dL Creatinine 0.85 (0.66-1.25) mg/dL Estimated GFR > 60.0 (>60) mL/min BUN/Creatinine Ratio 15.3 (6-22) Glucose 131 H (70-100) mg/dL Calcium 9.3 (8.4-10.2) mg/dL Total Bilirubin 0.3 (0.2-1.3) mg/dL AST 37 (17-59) IU/L ALT 52 H (<50) IU/L Alkaline Phosphatase 69 (38-126) U/L Total Protein 7.5 (6.3-8.2) g/dL Albumin 4.2 (3.5-5.0) g/dL Globulin 3.3 (1.7-4.1) g/dL Albumin/Globulin Ratio 1.3 (1.0-2.8) Lipase 184 (23-300) U/L Urine Dip Bedside Urine Glucose Negative Bedside Urine Bilirubin - Negative Bedside Urine Ketone - Negative Urine Specific [place] 1.015 Bedside Urine Occult Blood - Negative Bedside Urine pH 6.0 Bedside Urine Protein - Negative Bedside Urine Urobilinogen - Negative Bedside Urine Nitrite - Negative Bedside Urine Leukocytes - Negative Esterase Point of care testing: Urine Dip Bedside Urine Glucose Negative Bedside Urine Bilirubin - Negative Bedside Urine Ketone - Negative Urine Specific [place] 1.015 Bedside Urine Occult Blood - Negative Bedside Urine pH 6.0 Bedside Urine Protein - Negative Bedside Urine Urobilinogen - Negative Bedside Urine Nitrite - Negative Bedside Urine Leukocytes - Negative Esterase Imaging Data CT scan - abdomen/pelvis: Radiologist's Impression: [address] [address] [address] Scan Report Signed Patient: Keshav Cortes MR#: [id number] : 1985 Acct:[id number] Age/Sex: 35 / M Date of Service: 02/23/21 Loc: ED Accession Number: [id number] ?? Procedure: CT abdomen pelvis w con Ordering Provider: Remberto Kemp D.O. PROCEDURE:? CT ABDOMEN PELVIS W CON ? INDICATIONS:? Generalized abdominal pain with blood in stool ? TECHNIQUE:? After the administration of intravenous contrast, axial sections acquired from the lung bases to the pubic symphysis.? Coronal and sagittal reformats were performed.? For radiation dose reduction, the following was used:? automated exposure control, adjustment of mA and/or kV according to patient size.? ? COMPARISON:? None. ? FINDINGS:? Image quality:? Excellent.? ? Lung bases:? Unremarkable. Heart:? No significant findings. ? ABDOMEN: Liver:? Moderate diffuse hepatic steatosis..? ? Gallbladder:? Partially contracted.? Question subtle gallstones.? ? Biliary ducts:? Unremarkable.? ? Pancreas:? Unremarkable.? ? Spleen:? Unremarkable.? ? Adrenal Glands:? Unremarkable.? ? Kidneys and Ureters:? Unremarkable.? ? ? Stomach and Bowel:? Stomach, small bowel loops, and colon are unremarkable.? Peritoneum:? No abnormal intraperitoneal fluid.? No free air.? ? Ventral Wall: ? No hernias.? Abdominal Nodes:? No retroperitoneal or mesenteric adenopathy by size criteria.? Vessels:? Aorta and inferior vena cava are normal in size.? ? PELVIS: Pelvic Organs:? Unremarkable.? ? Bladder:? Unremarkable.? ? Pelvic Nodes: No enlarged lymph nodes.? Miscellaneous:? Small bilateral fat containing inguinal hernias. ? Bones:? Lumbar degenerative change.? No lytic or blastic bony lesions.? No compression fractures.? At least moderate and possibly severe canal stenosis at L4-L5. ? ? IMPRESSION:? ? 1. Moderate diffuse hepatic steatosis. ? 2. Small bilateral fat containing inguinal hernias. ? 3. No evidence acute abdominal process. ? 4. Incidental note made of at least moderate, and possibly severe canal stenosis at L4-L5.? ? ? 5. Possible cholelithiasis.? ? Dictated by: Miguelangel Lara M.D. on 02/23/2021 at 19:25 ? ? Approved by: Miguelangel Lara M.D. on 02/23/2021 at 19:28?? MDM Narrative Medical decision making narrative: Labs are unremarkable, CT scans unremarkable, vital signs unremarkable, does have diffuse abdominal tenderness. He is heme negative on rectal exam today. No indication for antibiotics. No indication for surgical consultation. Unsure the exact etiology of the patient's symptoms. Informed him that he does need to talk with primary doctor about referral to potentially have colonoscopy. He was given information for General surgery to give them a call and talk to them about colonoscopy. He was given return precautions and follow-up instructions. He expressed understanding and agreement. Discharge Plan Departure Patient Disposition: Home Clinical Impression: Abdominal pain, Rectal bleeding Instructions: DI for Abdominal Pain-Adult, DI for Rectal Bleeding Activity Restrictions/Additional Instructions: Your workup here in the emergency department is very reassuring. Further workup does require had evaluation by either Gastroenterology or General surgery to discuss the indications for a colonoscopy. I do recommend you contact the call center here at the [facility] at [phone]. These individuals can help you establish a primary doctor. Can also contact the general surgery clinic at the number provided below for follow-up. Continue all of your medications as directed. Prescriptions: New dicyclomine 10 mg capsule 10 mg PO TID PRN (Reason: cramping) Qty: 14 0RF No Action ondansetron 4 mg tablet,disintegrating 4 mg PO Q6-8H PRN (Reason: nausea and vomiting) Qty: 30 0RF diclofenac sodium 75 mg tablet,delayed release (DR/EC) 75 mg PO BID Qty: 180 1RF naltrexone 50 mg tablet 50 mg PO DAILY 0RF bupropion HCl 150 mg tablet extended release 24 hr 300 mg PO 0RF diclofenac sodium 1 % gel 2 gram TOP QID PRN (Reason: pain and inflammation) Qty: 100 0RF Rx Instructions: use sparingly; apply to single elbow, knee, wrist or hand; for hand includes palm/fingers/back of hand lidocaine 5 % adhesive patch,medicated 1 patch TOP Q24H PRN (Reason: pain) Qty: 30 0RF Rx Instructions: leave on most painful area for up to 12 hrs benzonatate 100 mg capsule 100 mg PO TID PRN (Reason: cough) Qty: 14 0RF ketorolac 10 mg tablet 10 mg PO Q6H PRN (Reason: pain) Qty: 14 0RF lidocaine [Lidoderm] 5 % adhesive patch,medicated 1 patch TOP DAILY Qty: 15 0RF Rx Instructions: leave on most painful area for 12 hrs cyclobenzaprine 10 mg tablet 10 mg PO TID PRN (Reason: muscle spasm) Qty: 10 0RF ibuprofen 600 mg tablet 600 mg PO Q6H PRN (Reason: fever or pain) Qty: 24 0RF Referrals: Joseph Phan MD [Physician] -
[2021-02-23] MEDS: SODIUM CHLORIDE 0.9% 1,000 ML 1000 ML IV (19:07)
--- NOTE | 2021-02-23 19:25 | PC.NURSE ---
Patient states abd pain 8/10 for over 1 week. States it feels like Im shitting razorblades. States stool has been black recently and dark red in the past day. Denies urinary issues, No SOB, no recent antibiotic use, denies N/V/D. Reports 2-4 BM per day.
[2021-02-23] MEDS: KETOROLAC 30 MG/ML VIAL IV (20:25)
== END 2021-02-23 21:10 | disposition home or self-care (01) ==
PROVIDERS: Emergency Medicine; Emergency Provider Emergency Medicine
DX: R10.9 Unspecified abdominal pain (principal); K92.1 Melena; R19.7 Diarrhea, unspecified; K59.00 Constipation, unspecified
CPT/HCPCS: 36415; 74177; 80053; 81003; 83690; 85025; 96361; 96374; 99284; J1885; Q9967

== ENCOUNTER 2021-05-21 20:42 | Emergency (ER) | payer OTHER, MEDICAID, SELFPAY ==
[2021-05-21 20:49] VITALS: BP 156/87; PULSE 85; RESP 18; TEMP 36.8; O2SAT 99; BMI 39.0
--- NOTE | 2021-05-21 20:53 | DI.RAD.S_ITS ---
PROCEDURE: XR FOREARM LT 2V INDICATIONS: Right elbow to wrist pain/numbness TECHNIQUE: 2 views of the forearm were acquired. COMPARISON: None. FINDINGS: Bones: No fractures or dislocations in the forearm. There is irregularity of the scaphoid with sclerosis suggestive of a fracture which is incompletely evaluated on the current study. No suspicious bony lesions. Soft tissues: No suspicious soft tissue calcifications or masses. IMPRESSION: 1. No fracture or dislocation in the forearm. 2. Suspected scaphoid fracture of indeterminate acuity. The finding is incompletely evaluated on the current study and further evaluation is recommended with a wrist study. Dictated by: Elan Rouse M.D. on 05/21/2021 at 21:10 Approved by: Elan Rouse M.D. on 05/21/2021 at 21:14
--- NOTE | 2021-05-21 21:46 | ED.UPPEXIN ---
HPI - Extremity Injury (Upper) General Chief Complaint: Extremity Injury, Upper Stated Complaint: lt arm nunbness, bumps under skin Time Seen by Provider: 05/21/21 21:46 Source: patient Mode of arrival: Ambulatory History of Present Illness HPI narrative: The patient is right-hand dominant. He has intermittent numbness in the palm of his left hand, radiating up his forearm for about 1 week. Symptoms exacerbate sometimes at night. There has been no trauma. Symptoms are not necessarily persistent, coming and going throughout the day. Related Data Home Medications Medication Instructions Recorded Confirmed bupropion HCl 150 mg 24 hr tablet, 300 mg PO tab 03/22/20 09/07/20 extended release naltrexone 50 mg tablet 50 mg PO DAILY 03/22/20 09/07/20 Previous Rx's Medication Instructions Recorded diclofenac sodium 1 % topical gel 2 gram TOP QID PRN #100 gram 07/03/19 lidocaine 5 % topical patch 1 patch TOP Q24H PRN #30 each 11/11/19 ondansetron 4 mg disintegrating 4 mg PO Q6-8H PRN #30 tab 01/26/20 tablet cyclobenzaprine 10 mg tablet 10 mg PO TID PRN #10 tab 03/20/20 ibuprofen 600 mg tablet 600 mg PO Q6H PRN #24 tab 03/20/20 benzonatate 100 mg capsule 100 mg PO TID PRN #14 cap 08/31/20 diclofenac sodium 75 mg 75 mg PO BID #180 tab 10/31/20 tablet,delayed release ketorolac 10 mg tablet 10 mg PO Q6H PRN #14 tab 01/10/21 lidocaine 5 % topical patch 1 patch TOP DAILY #15 each 01/10/21 (Lidoderm) dicyclomine 10 mg capsule 10 mg PO TID PRN #14 cap 02/23/21 Allergies Allergy/AdvReac Type Severity Reaction Status Date / Time No Known Drug Allergies Allergy Verified 05/21/21 20:52 Review of Systems Review of Systems Narrative: See HPI Patient History Medical History Ankle pain, left Arthritis Constipation Depression Obesity (BMI 35.0-39.9 without comorbidity) PTSD (post-traumatic stress disorder) Substance abuse Social History Smoking Status: Current every day smoker Smoking Status: Current every day smoker tobacco type: vaping alcohol intake frequency: holidays/special occasions only Substance Use Type: does not use Exam Initial Vital Signs Initial Vital Signs: Vital Signs Temperature 98.3 F 05/21/21 20:49 Pulse Rate 85 05/21/21 20:49 Respiratory Rate 18 05/21/21 20:49 Blood Pressure 156/87 H 05/21/21 20:49 Pulse Oximetry 99 05/21/21 20:49 Const General: cooperative, healthy appearing, comfortable, well developed and well groomed Skin General: no rashes or lesions noted Neuro General: patient alert, patient awake, patient oriented x3 and no focal motor deficits Extrem Other: No tenderness at the left elbow. Left wrist tenderness tender nontender. He has intermittent numbness in the thenar eminence. He has a positive response Tinel and Phalen tests. Procedures Orthopedic Splinting/Casting Injury #1: Upper Extremity Immobilizer: wrist splint Post splinting neuro exam: intact Post splinting vascular exam: intact Placed by: Nursing Course Orders Ordered: ED Orders 05/21/21 20:53 XR forearm LT 2V Stat Discontinued Medications Ibuprofen (Ibuprofen 400 Mg Tablet) 800 mg PO NOW ONE Stop: 05/21/21 21:48 Last Admin: 05/21/21 22:13 Dose: 800 mg Documented by: EARLENE Vital Signs Vital signs: Vital Signs - 8 hr 05/21/21 20:49 05/21/21 22:19 Temperature 98.3 F Pulse Rate 85 87 Respiratory Rate 18 20 Blood Pressure 156/87 H 164/97 H Pulse Oximetry 99 100 MDM - Extremity Injury (Upper) Imaging Data Left forearm x-ray:: Radiologist's Impression: Normal Discharge Plan Departure Patient Disposition: Home Clinical Impression: Left carpal tunnel syndrome Instructions: Carpal Tunnel Syndrome Activity Restrictions/Additional Instructions: Advil 3 tablets every 6-8 hours as needed for left hand discomfort Use the splint frequently when active through the day, I suggest you sleep with splint in place. Follow-up with your doctor, I would suggest nerve conduction studies to further evaluate carpal tunnel syndrome. Return here as needed. Prescriptions: No Action ondansetron 4 mg tablet,disintegrating 4 mg PO Q6-8H PRN (Reason: nausea and vomiting) Qty: 30 0RF diclofenac sodium 75 mg tablet,delayed release (DR/EC) 75 mg PO BID Qty: 180 1RF naltrexone 50 mg tablet 50 mg PO DAILY 0RF bupropion HCl 150 mg tablet extended release 24 hr 300 mg PO 0RF diclofenac sodium 1 % gel 2 gram TOP QID PRN (Reason: pain and inflammation) Qty: 100 0RF Rx Instructions: use sparingly; apply to single elbow, knee, wrist or hand; for hand includes palm/fingers/back of hand lidocaine 5 % adhesive patch,medicated 1 patch TOP Q24H PRN (Reason: pain) Qty: 30 0RF Rx Instructions: leave on most painful area for up to 12 hrs benzonatate 100 mg capsule 100 mg PO TID PRN (Reason: cough) Qty: 14 0RF ketorolac 10 mg tablet 10 mg PO Q6H PRN (Reason: pain) Qty: 14 0RF lidocaine [Lidoderm] 5 % adhesive patch,medicated 1 patch TOP DAILY Qty: 15 0RF Rx Instructions: leave on most painful area for 12 hrs cyclobenzaprine 10 mg tablet 10 mg PO TID PRN (Reason: muscle spasm) Qty: 10 0RF ibuprofen 600 mg tablet 600 mg PO Q6H PRN (Reason: fever or pain) Qty: 24 0RF dicyclomine 10 mg capsule 10 mg PO TID PRN (Reason: cramping) Qty: 14 0RF
[2021-05-21] MEDS: IBUPROFEN 400 MG TABLET 800 MG PO (22:13)
[2021-05-21 22:19] VITALS: BP 164/97; PULSE 87; RESP 20; O2SAT 100
== END 2021-05-21 22:48 | disposition home or self-care (01) ==
PROVIDERS: Emergency Provider Emergency Medicine
DX: G56.02 Carpal tunnel syndrome, left upper limb (principal)
CPT/HCPCS: 73090; 99283

== ENCOUNTER 2021-11-11 19:12 | Emergency (ER) | payer OTHER, MEDICAID, SELFPAY ==
[2021-11-11 19:41] VITALS: BP 151/95; PULSE 87; RESP 22; TEMP 36.4; O2SAT 98
--- NOTE | 2021-11-11 19:46 | DI.CT.S_ITS ---
PROCEDURE: CT ORBIT BI WO CON INDICATIONS: trauma TECHNIQUE: Noncontrast 2.5 mm axial images acquired through the orbits, with coronal and sagittal reformats. For radiation dose reduction, the following was used: automated exposure control, adjustment of mA and/or kV according to patient size. COMPARISON: [facility], CT, CT HEAD/BRAIN WO CON, 11/11/2021, 20:08. FINDINGS: Image quality: Excellent. Orbits: There is left supraorbital soft tissue swelling a soft tissue laceration and small subcutaneous hematoma. The orbital patel appear intact. Globes are symmetric in size and intact. No metallic foreign bodies. The optic nerves are normal in size. No retrobulbar masses or fat abnormalities. The extra-ocular muscles are normal and symmetrical in appearance. Lacrimal glands are normal in size. Optic chiasm is normal. Intracranial: Visualized portions of the cerebral hemispheres, brainstem, and spinal cord are normal. Bones and sinuses: Visualized calvarium and facial bones appear intact. Visualized sinuses demonstrated moderate mucosal thickening within the bilateral maxillary sinuses with mild to moderate fluid opacification with air-fluid levels. Mild mucosal thickening also demonstrated within the ethmoid sinuses. Mastoid air cells are clear. IMPRESSION: 1. Left supraorbital soft tissue swelling with a soft tissue laceration and subcutaneous hematoma. No associated fractures identified. 2. Globes appear intact in the orbits. No intraorbital fluid collections. 3. Bilateral air-fluid levels in the maxillary sinuses likely reflect acute sinusitis. Dictated by: Elan Rouse M.D. on 11/11/2021 at 20:30 Approved by: Elan Rouse M.D. on 11/11/2021 at 20:36
--- NOTE | 2021-11-11 19:46 | DI.CT.S_ITS ---
PROCEDURE: CT HEAD/BRAIN WO CON INDICATIONS: trauma TECHNIQUE: Noncontrast 4.5 mm thick angled axial sections acquired from the foramen magnum to the vertex, with coronal and sagittal reformats. For radiation dose reduction, the following was used: automated exposure control, adjustment of mA and/or kV according to patient size. COMPARISON: [facility], CT, CT ORBIT BI WO CON, 11/11/2021, 20:08. FINDINGS: Image quality: Excellent. CSF spaces: Basal cisterns are patent. No extra-axial fluid collections. Ventricles are normal in size and shape. Brain: No midline shift. No intracranial masses or hemorrhage. Ewing-white matter interface is normal. Skull and face: Calvarium and visualized facial bones appear intact. There is left supraorbital soft tissue swelling with a laceration and subcutaneous hematoma. The globes appear intact. Sinuses: Visualized sinuses demonstrate bilateral air-fluid levels within the partially visualized maxillary sinuses. Mild mucosal thickening is also demonstrated within the ethmoid and maxillary sinuses. Mastoid air cells are clear. IMPRESSION: 1. No acute intracranial abnormality. 2. Left supraorbital soft tissue swelling with a laceration and subcutaneous hematoma. No associated fractures of the visualized facial bones. 3. Bilateral air-fluid levels within the maxillary sinuses. Given the associated mucosal thickening, the findings likely reflect acute sinusitis. Dictated by: Elan Rouse M.D. on 11/11/2021 at 20:27 Approved by: Elan Rouse M.D. on 11/11/2021 at 20:30
--- NOTE | 2021-11-11 19:47 | ED.WOUNDLAC ---
HPI - Wound/Laceration General Chief Complaint: Wound/Laceration Stated Complaint: Hit on the head with a metal thing from the door Time Seen by Provider: 11/12/21 00:16 Source: patient Mode of arrival: Ambulatory History of Present Illness HPI narrative: 36-year-old male smoker without chronic medical history presents with chief complaint accidental head injury with laceration just prior to arrival. 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 Patient denies any loss of consciousness, nausea or vomiting. Takes no blood thinners. He has no neck or back pain. He is not dizzy nor weak or lightheaded but does complain of a headache. His tetanus will need to be updated. He denies any blurred or double vision and states there is no eye involvement. He is otherwise well and free of complaint Related Data Home Medications Medication Instructions Recorded Confirmed bupropion HCl 150 mg 24 hr tablet, 300 mg PO 03/22/20 09/07/20 extended release naltrexone 50 mg tablet 50 mg PO DAILY 03/22/20 09/07/20 Previous Rx's Medication Instructions Recorded diclofenac sodium 1 % topical gel 2 gram topical QID PRN pain and 07/03/19 inflammation #100 grams lidocaine 5 % topical patch 1 patch topical Q24H PRN pain #30 11/11/19 ea ondansetron 4 mg disintegrating 4 mg PO Q6-8H PRN nausea and 01/26/20 tablet vomiting #30 tabs cyclobenzaprine 10 mg tablet 10 mg PO TID PRN muscle spasm #10 03/20/20 tabs ibuprofen 600 mg tablet 600 mg PO Q6H PRN fever or pain 03/20/20 #24 tabs benzonatate 100 mg capsule 100 mg PO TID PRN cough #14 caps 08/31/20 ketorolac 10 mg tablet 10 mg PO Q6H PRN pain #14 tabs 01/10/21 lidocaine 5 % topical patch 1 patch topical DAILY #15 ea 01/10/21 (Lidoderm) dicyclomine 10 mg capsule 10 mg PO TID PRN cramping #14 caps 02/23/21 diclofenac sodium 75 mg 75 mg PO BID #60 tabs 07/04/21 tablet,delayed release cephalexin 500 mg capsule 500 mg PO Q6H 7 days #28 caps 11/12/21 Allergies Allergy/AdvReac Type Severity Reaction Status Date / Time No Known Drug Allergies Allergy Verified 05/21/21 20:52 Review of Systems Review of Systems Narrative: GENERAL: Denies chills, fatigue, malaise, fever, sweats. HEENT: Denies sinus pain, ear pain, sore throat, difficulty swallowing, dizziness. RESPIRATORY: Denies dyspnea, cough, wheezing, hemoptysis, sputum. CARDIOVASCULAR: Denies chest pain, palpitations, orthopnea, edema, GASTROINTESTINAL: Denies nausea, vomiting, abdominal pain, diarrhea, constipation, melena. : Denies dysuria, frequency, incontinence, hematuria, urinary retention. MUSCULOSKELETAL: denies weakness, joint pain, or bony pain SKIN: See HPI NEUROLOGIC: See HPI PSYCHIATRIC: No concerning psychosocial issues. 12 point review of systems is negative except for those stated above Patient History Medical History Ankle pain, left Arthritis Constipation Depression Obesity (BMI 35.0-39.9 without comorbidity) PTSD (post-traumatic stress disorder) Substance abuse Social History Smoking Status: Current every day smoker Smoking Status: Current every day smoker tobacco type: vaping alcohol intake frequency: holidays/special occasions only Substance Use Type: does not use Exam Narrative Exam Narrative: GENERAL: [36] year old patient appears stated age. Well-developed patient, in mild distress. Complaining of frontal head pain. GCS 15 HEAD: Atraumatic. Normocephalic. EYES: Pupils equal round and reactive. Extraocular motions intact. No scleral icterus. No injection or drainage. ENT: Nose without bleeding, purulent drainage. Throat without erythema, tonsillar hypertrophy or exudate. Airway patent. NECK: Trachea midline. Non tender CARDIOVASCULAR: Regular rate and rhythm without murmurs, gallops, or rubs. RESPIRATORY: Clear to auscultation. Breath sounds equal bilaterally. No wheezes, rales, or rhonchi. GASTROINTESTINAL: Abdomen soft, non-tender, nondistended. EXTREMITIES: No edema or joint tenderness. BACK: Nontender without deformity or crepitance. No flank tenderness. NEURO: AOx3. SKIN: No rash or erythema of visible areas Initial Vital Signs Initial Vital Signs: Vital Signs Temperature 97.5 F L 11/11/21 19:41 Pulse Rate 87 11/11/21 19:41 Respiratory Rate 22 11/11/21 19:41 Blood Pressure 151/95 H 11/11/21 19:41 Pulse Oximetry 98 11/11/21 19:41 Oxygen Delivery Method 11/11/21 19:41 Procedures Laceration Repair Laceration 1: Site: face Side (If applicable): left Size (cm): 6 Description: flap and clean Depth: involves muscle layer Local Anesthetic: bupivacaine 0.5% and with epi Amount of anesthesia used (mL): 6 Pre-repair: wound explored and cleansed with chlorhexadine Skin layer closed with: nylon Skin layer suture size: 6-0 Number of sutures: 9 Technique: simple, interrupted Subcutaneous layer closed with: vicryl Subcutaneous layer suture size: 5-0 Number of sutures: 3 Technique: simple, interrupted Course Orders Ordered: Discontinued Medications Hydrocodone Bitart/Acetaminophen (Hydrocodone/Acet 5/325 Tablet) 1 tab PO NOW ONE Stop: 11/11/21 19:48 Last Admin: 11/11/21 19:54 Dose: 1 tab Documented By: NAPOLEON Bupivacaine HCl/Epinephrine Bitart (Bupivacaine 0.5% W/ Epi (Pf) 30 Ml Vial) 5 ml SUBCUT NOW ONE Stop: 11/12/21 00:44 Last Admin: 11/12/21 01:04 Dose: 5 ml Documented By: PERLITA Diphtheria/Tetanus/Acell Pertussis (Tet,Diph,Pertuss(Acell),Vac/Pf 0.5 Ml Syringe) 0.5 ml IM .ONCE ONE Stop: 11/11/21 19:47 Last Admin: 11/12/21 00:50 Dose: 0.5 ml Documented By: NAPOLEON Ibuprofen (Ibuprofen 400 Mg Tablet) 800 mg PO NOW ONE Stop: 11/12/21 01:06 Last Admin: 11/12/21 01:09 Dose: 800 mg Documented By: PERLITA Vital Signs Vital signs: Vital Signs - 8 hr 11/11/21 19:41 Temperature 97.5 F L Pulse Rate 87 Respiratory Rate 22 Blood Pressure 151/95 H Pulse Oximetry 98 Oxygen Delivery Method Room Air MDM - Wound/Laceration Imaging Data CT scan - head: Radiologist's Impression: Keshav Cortes??36??M??1985 ? Allergy/Adv: No Known Drug Allergies Close Orbit CT (Signed) Padma,Elan - 11/11/[address] (Signed) Rouse,Elan - 11/11/21 Forearm X-Ray (Signed) Elan Rouse - 05/21/21 Abdomen/Pelvis CT (Signed) Miguelangel Lara - 02/23/21 Ankle X-Ray (Signed) CallJose Alfredo - 01/30/21 Chest X-Ray (Signed) Deven Reynolds - 01/10/21 Chest X-Ray (Signed) Rouse,Elan - 06/13/20 Foot X-Ray (Signed) Allyssa Berger - 05/24/20 Ankle X-Ray (Signed) Allyssa Berger - 05/24/20 Toe X-Ray (Signed) Peter Fitch - 04/08/20 Ankle X-Ray (Signed) Peter Fitch - 03/22/20 Chest/Abdomen/Pelvis CT (Signed) Trang Sy - 03/20/20 Thoracic Spine X-Ray (Signed) RouseElan - 11/11/19 Vascular Ultrasound (Signed) Gavi Fitzgerald - 09/05/19 Knee X-Ray (Signed) Allyssa Berger - 07/03/19 Tibia/Fibula X-Ray (Signed) Ghislaine,Jose Alfredo - 06/22/19 Launch?[place] [address] CT Scan Report Signed Patient: Keshav Cortes MR#: [id number] : 1985 Acct:[id number] Age/Sex: 36 / M Date of Service: 11/11/21 Loc: ED Accession Number: [id number] ?? Procedure: CT head/brain wo con Ordering Provider: Humberto Harris D.O. PROCEDURE:? CT HEAD/BRAIN WO CON ? INDICATIONS:? trauma ? TECHNIQUE:? Noncontrast 4.5 mm thick angled axial sections acquired from the foramen magnum to the vertex, with coronal and sagittal reformats.? For radiation dose reduction, the following was used:? automated exposure control, adjustment of mA and/or kV according to patient size.? ? COMPARISON:? [facility], CT, CT ORBIT BI WO CON, 11/11/2021, 20:08. ? FINDINGS:? Image quality:? Excellent.? ? CSF spaces:? Basal cisterns are patent.? No extra-axial fluid collections.? Ventricles are normal in size and shape.? ? Brain:? No midline shift.? No intracranial masses or hemorrhage.? Ewing-white matter interface is normal.? ? Skull and face:? Calvarium and visualized facial bones appear intact.? There is left supraorbital soft tissue swelling with a laceration and subcutaneous hematoma.? The globes appear intact. ? Sinuses:? Visualized sinuses demonstrate bilateral air-fluid levels within the partially visualized maxillary sinuses.? Mild mucosal thickening is also demonstrated within the ethmoid and maxillary sinuses.? Mastoid air cells are clear. ? IMPRESSION:? ? 1. No acute intracranial abnormality. ? 2. Left supraorbital soft tissue swelling with a laceration and subcutaneous hematoma.? No associated fractures of the visualized facial bones. ? 3. Bilateral air-fluid levels within the maxillary sinuses.? Given the associated mucosal thickening, the findings likely reflect acute sinusitis. ? ? Dictated by: Elan Rouse M.D. on 11/11/2021 at 20:27 ? ? Approved by: Elan Rouse M.D. on 11/11/2021 at 20:30 ? Orbit CT: Radiologist's Impression: Close Orbit CT (Signed) Elan Rouse - 11/11/[address] (Signed) Elan Rouse - 11/11/21 Forearm X-Ray (Signed) Elan Rouse - 05/21/21 Abdomen/Pelvis CT (Signed) Miguelangel Lara - 02/23/21 Ankle X-Ray (Signed) Jose Alfredo Scanlon - 01/30/21 Chest X-Ray (Signed) Deven Reynolds - 01/10/21 Chest X-Ray (Signed) Elan Rouse - 06/13/20 Foot X-Ray (Signed) Allyssa Berger - 05/24/20 Ankle X-Ray (Signed) Allyssa Berger - 05/24/20 Toe X-Ray (Signed) Peter Fitch - 04/08/20 Ankle X-Ray (Signed) Peter Fitch - 02/05/21 Chest/Abdomen/Pelvis CT (Signed) Trang Sy - 03/20/20 Thoracic Spine X-Ray (Signed) RouseElan campbell - 11/11/19 Vascular Ultrasound (Signed) Gavi Fitzgerald - 09/05/19 Knee X-Ray (Signed) Allyssa Berger - 07/03/19 Tibia/Fibula X-Ray (Signed) Jose Alfredo Scanlon - 06/22/19 Launch?[place] [address] CT Scan Report Signed Patient: Keshav Cortes MR#: [id number] : 1985 Acct:[id number] Age/Sex: 36 / M Date of Service: 11/11/21 Loc: ED Accession Number: [id number] ?? Procedure: CT orbit BI wo con Ordering Provider: Humberto Harris D.O. PROCEDURE:? CT ORBIT BI WO CON ? INDICATIONS:? trauma ? TECHNIQUE:? Noncontrast 2.5 mm axial images acquired through the orbits, with coronal and sagittal reformats.? For radiation dose reduction, the following was used:? automated exposure control, adjustment of mA and/or kV according to patient size.? ? COMPARISON:? [facility], CT, CT HEAD/BRAIN WO CON, 11/11/2021, 20:08. ? FINDINGS:? Image quality:? Excellent.? ? Orbits:? There is left supraorbital soft tissue swelling a soft tissue laceration and small subcutaneous hematoma.? The orbital patel appear intact.? Globes are symmetric in size and intact.? No metallic foreign bodies.? The optic nerves are normal in size.? No retrobulbar masses or fat abnormalities.? The extra-ocular muscles are normal and symmetrical in appearance.? Lacrimal glands are normal in size.? Optic chiasm is normal.? ? ? Intracranial:? Visualized portions of the cerebral hemispheres, brainstem, and spinal cord are normal.? ? Bones and sinuses:? Visualized calvarium and facial bones appear intact.? Visualized sinuses demonstrated moderate mucosal thickening within the bilateral maxillary sinuses with mild to moderate fluid opacification with air-fluid levels.? Mild mucosal thickening also demonstrated within the ethmoid sinuses.? Mastoid air cells are clear. ? IMPRESSION:? ? 1. Left supraorbital soft tissue swelling with a soft tissue laceration and subcutaneous hematoma.? No associated fractures identified. ? 2. Globes appear intact in the orbits.? No intraorbital fluid collections. ? 3. Bilateral air-fluid levels in the maxillary sinuses likely reflect acute sinusitis. ? ? Dictated by: Elan Rouse M.D. on 11/11/2021 at 20:30 ? ? Approved by: Elan Rouse M.D. on 11/11/2021 at 20:36 ? Discharge Plan Departure Patient Disposition: Home Clinical Impression: Complex laceration of face Instructions: DI for Laceration Repair Activity Restrictions/Additional Instructions: *You have been diagnosed with [complex left-sided facial laceration] *What to do: *Please continue to take your regular medications as directed. [ x] New medication prescriptions sent to your pharmacy: [[facility] in [place] ] [ ] New medication written as a paper prescription [ ] No new medications given * Please keep the wound clean and dry to the best of your ability. Please monitor for signs of infection such as redness to the skin or increasing pain. Have the sutures/hadley removed by your doctor in about 7 days. If you are unable to get into your doctor, we would be happy to remove the sutures/hadley in that same timeframe. *If you do not have a primary care provider please contact the [facility] Resource line at [phone]. They will ask some questions about your medical history and help get you set up with a doctor in the community. *Return to Emergency Department if you should have any new, worsening or concerning symptoms, such as [fever greater than 101 F, shaking chills, worsening pain, persistent vomiting or other bothersome symptoms] Prescriptions: New cephalexin 500 mg capsule 500 mg PO Q6H 7 Days Qty: 28 0RF No Action ondansetron 4 mg tablet,disintegrating 4 mg PO Q6-8H PRN (Reason: nausea and vomiting) Qty: 30 0RF diclofenac sodium 75 mg tablet,delayed release (DR/EC) 75 mg PO BID Qty: 60 0RF Rx Instructions: APPT DUE W/PCP PRIOR TO END OF RX/FUTURE FILLS. PLEASE CALL TO SCHEDULE APPT. THANKS 07/04/21 naltrexone 50 mg tablet 50 mg PO DAILY bupropion HCl 150 mg tablet extended release 24 hr 300 mg PO diclofenac sodium 1 % gel 2 gram TOP QID PRN (Reason: pain and inflammation) Qty: 100 0RF Rx Instructions: use sparingly; apply to single elbow, knee, wrist or hand; for hand includes palm/fingers/back of hand lidocaine 5 % adhesive patch,medicated 1 patch TOP Q24H PRN (Reason: pain) Qty: 30 0RF Rx Instructions: leave on most painful area for up to 12 hrs benzonatate 100 mg capsule 100 mg PO TID PRN (Reason: cough) Qty: 14 0RF ketorolac 10 mg tablet 10 mg PO Q6H PRN (Reason: pain) Qty: 14 0RF lidocaine [Lidoderm] 5 % adhesive patch,medicated 1 patch TOP DAILY Qty: 15 0RF Rx Instructions: leave on most painful area for 12 hrs cyclobenzaprine 10 mg tablet 10 mg PO TID PRN (Reason: muscle spasm) Qty: 10 0RF ibuprofen 600 mg tablet 600 mg PO Q6H PRN (Reason: fever or pain) Qty: 24 0RF dicyclomine 10 mg capsule 10 mg PO TID PRN (Reason: cramping) Qty: 14 0RF Visit Report Forms: Patient Portal/API
[2021-11-11] MEDS: HYDROCODONE/ACET 5/325 TABLET 1 TAB PO (19:54)
[2021-11-12] MEDS: TET,DIPH,PERTUSS(ACELL),VAC/PF 0.5 ML SYRINGE IM (00:50)
[2021-11-12] MEDS: BUPIVACAINE 0.5% W/ EPI (PF) 30 ML VIAL 5 ML SUBCUT (01:04)
[2021-11-12] MEDS: IBUPROFEN 400 MG TABLET 800 MG PO (01:09)
[2021-11-12 01:13] VITALS: BP 145/91; PULSE 85; RESP 20; O2SAT 98
== END 2021-11-12 01:14 | disposition home or self-care (01) ==
PROVIDERS: Emergency Provider Emergency Medicine
DX: S01.81XA Laceration without foreign body of other part of head, initial encounter (principal); W22.8XXA Striking against or struck by other objects, initial encounter; Z23 Encounter for immunization
CPT/HCPCS: 13132; 70450; 70480; 90471; 99284; 90715

== ENCOUNTER 2022-01-29 23:29 | Emergency (ER) | payer OTHER, MEDICAID, SELFPAY ==
[2022-01-29 23:46] VITALS: BP 139/70; PULSE 90; RESP 20; TEMP 36.4; O2SAT 99; BMI 33.5
--- NOTE | 2022-01-29 23:54 | DI.RAD.S_ITS ---
PROCEDURE: XR RIBS LT MIN 3V W CXR1V INDICATIONS: rib pain TECHNIQUE: Two views of the left ribs were acquired, along with a single view chest. COMPARISON: None. FINDINGS: Surgical changes and devices: None. Bones and chest wall: No displaced rib fracture identified. No suspicious bony lesions. Overlying soft tissues appear unremarkable. Lungs and pleura: No pleural effusions or pneumothorax. Lungs appear clear. Mediastinum: Mediastinal contours appear normal. Heart size is normal. IMPRESSION: 1. No displaced rib fracture identified. Dictated by: Elan Rouse M.D. on 01/30/2022 at 1:53 Approved by: Elan Rouse M.D. on 01/30/2022 at 1:54
--- NOTE | 2022-01-30 04:03 | ED.BACK ---
HPI - Back Pain/Injury General Chief Complaint: Back Pain/Injury Stated Complaint: left rib pain/injury today Time Seen by Provider: 01/30/22 04:03 Source: patient Mode of arrival: Ambulatory Limitations: no limitations History of Present Illness HPI Narrative: This is a 36-year-old male on medication for ADHD who denies other medical issues, patient states today he was working on his car he was bending over the fender trying to lift a transmission upwards and felt pain on the left rib region and a crunching sound and feeling. Patient states pain has been persistent. He has not taken anything for the pain. Patient denies any other injuries. Patient has not appreciate any bruising. He states it hurts to take a big breath. He states he is had a little bit of cough while he has been in the department but nonproductive no blood. He denies pain elsewhere. Patient denies other symptoms. He does use tobacco daily, he states occasional alcohol, none this evening. He denies any substance abuse. Related Data Home Medications Medication Instructions Recorded Confirmed bupropion HCl 150 mg 24 hr tablet, 300 mg PO 03/22/20 09/07/20 extended release naltrexone 50 mg tablet 50 mg PO DAILY 03/22/20 09/07/20 Previous Rx's Medication Instructions Recorded diclofenac sodium 1 % topical gel 2 gram topical QID PRN pain and 07/03/19 inflammation #100 grams lidocaine 5 % topical patch 1 patch topical Q24H PRN pain #30 11/11/19 ea ondansetron 4 mg disintegrating 4 mg PO Q6-8H PRN nausea and 01/26/20 tablet vomiting #30 tabs cyclobenzaprine 10 mg tablet 10 mg PO TID PRN muscle spasm #10 03/20/20 tabs ibuprofen 600 mg tablet 600 mg PO Q6H PRN fever or pain 03/20/20 #24 tabs benzonatate 100 mg capsule 100 mg PO TID PRN cough #14 caps 08/31/20 ketorolac 10 mg tablet 10 mg PO Q6H PRN pain #14 tabs 01/10/21 lidocaine 5 % topical patch 1 patch topical DAILY #15 ea 01/10/21 (Lidoderm) dicyclomine 10 mg capsule 10 mg PO TID PRN cramping #14 caps 02/23/21 diclofenac sodium 75 mg 75 mg PO BID #60 tabs 07/04/21 tablet,delayed release Allergies Allergy/AdvReac Type Severity Reaction Status Date / Time No Known Drug Allergies Allergy Verified 01/29/22 23:54 Review of Systems Review of Systems ROS Unobtainable: All systems reviewed & are unremarkable except as noted in HPI and below Patient History Medical History Ankle pain, left Arthritis Constipation Depression Obesity (BMI 35.0-39.9 without comorbidity) PTSD (post-traumatic stress disorder) Substance abuse Social History Smoking Status: Current every day smoker Smoking Status: Current every day smoker tobacco type: vaping alcohol intake frequency: holidays/special occasions only Substance Use Type: does not use Exam Narrative Exam Narrative: GEN: Patient is asleep on initial evaluation, mild distress upon awakening. HEAD: No evidence of trauma, no raccoon/Granados sign. NECK: Painless range of motion, trachea midline EYES: PERRLA, EOMI ENT: External inspection normal, trachea is midline, Nares are clear, airway is normal and with normal occlusion, No bony tenderness RESP: Chest is tender bilaterally and has symmetric movement, no ecchymosis, breath sounds are normal no crackles, wheezes or rales, no tachypnea accessory muscle use. CVS: Heart sounds are normal, no murmur noted, No JVD. ABG/GI: Nontender, soft, normal bowel sounds, no distention, no organomegaly, pelvic rock is negative. NEURO: Oriented AOx3, neuro is grossly intact, sensation and motor is normal all 4 extremities moving, cranial nerves II through XII are intact, GCS is 15 PSYCH: Normal mood and affect SKIN: Intact, warm and dry, no crepitus and without decubitus BACK: No CVA tenderness, no vertebral tenderness, no step-off's, no crepitus EXT: Atraumatic, hips are nontender, no pedal edema, normal color and temperature, normal range of motion of extremities. Initial Vital Signs Initial Vital Signs: Vital Signs Temperature 97.5 F L 01/29/22 23:46 Pulse Rate 90 01/29/22 23:46 Respiratory Rate 20 01/29/22 23:46 Blood Pressure 139/70 01/29/22 23:46 Pulse Oximetry 99 01/29/22 23:46 Oxygen Delivery Method 01/29/22 23:46 Course Orders Ordered: ED Orders 01/29/22 23:54 XR ribs LT min 3V w CXR1V Stat Discontinued Medications Ibuprofen (Ibuprofen 400 Mg Tablet) 800 mg PO NOW ONE Stop: 01/30/22 04:25 Last Admin: 01/30/22 04:31 Dose: 800 mg Documented By: PERLITA Ketorolac Tromethamine (Ketorolac 60 Mg/2 Ml Vial) 60 mg IM NOW ONE Stop: 01/30/22 04:15 Last Admin: 01/30/22 04:32 Dose: Not Given Documented By: PERLITA Vital Signs Vital signs: Vital Signs - 8 hr 01/29/22 23:46 01/30/22 04:44 Temperature 97.5 F L Pulse Rate 90 80 Respiratory Rate 20 20 Blood Pressure 139/70 135/70 Pulse Oximetry 99 99 Oxygen Delivery Method Room Air Room Air MDM - Back Pain/Injury Imaging Data Chest x-ray: Radiologist's Impression: Close Ribs X-Ray (Signed) Elan Rouse - 01/29/[address] (Signed) Elan Rouse - 11/11/[address] (Signed) Elan Rouse - 11/11/21 Forearm X-Ray (Signed) Elan Rouse - 05/21/21 Abdomen/Pelvis CT (Signed) Miguelangel Lara - 02/23/21 Ankle X-Ray (Signed) Jose Alfredo Scanlon - 01/30/21 Chest X-Ray (Signed) Deven Reynolds - 01/10/21 Chest X-Ray (Signed) Elan Rouse - 06/13/20 Foot X-Ray (Signed) Allyssa Berger - 05/24/20 Ankle X-Ray (Signed) Allyssa Berger - 05/24/20 Toe X-Ray (Signed) Peter Fitch - 04/08/20 Ankle X-Ray (Signed) Peter Fitch - 03/22/20 Chest/Abdomen/Pelvis CT (Signed) Trang Sy - 03/20/20 Thoracic Spine X-Ray (Signed) Elan Rouse - 11/11/19 Vascular Ultrasound (Signed) Gavi Fitzgerald - 09/05/19 Knee X-Ray (Signed) Allyssa Berger - 07/03/19 Tibia/Fibula X-Ray (Signed) Jose Alfredo Scanlon - 06/22/19 Launch?[address] [address] XRay Report Signed Patient: Keshav Cortes MR#: [id number] : 1985 Acct:[id number] Age/Sex: 36 / M Date of Service: 01/29/22 Loc: ED Accession Number: [id number] ?? Procedure: XR ribs LT min 3V w CXR1V Ordering Provider: Tamar Larson D.O. PROCEDURE:? XR RIBS LT MIN 3V W CXR1V ? INDICATIONS:? rib pain ? TECHNIQUE:? Two views of the left ribs were acquired, along with a single view chest.? ? COMPARISON:? None. ? FINDINGS:? ? Surgical changes and devices:? None.? ? Bones and chest wall:? No displaced rib fracture identified.? No suspicious bony lesions. ?Overlying soft tissues appear unremarkable.? ? Lungs and pleura:? No pleural effusions or pneumothorax.? Lungs appear clear.? ? Mediastinum:? Mediastinal contours appear normal.? Heart size is normal.? ? IMPRESSION:? ? 1.? No displaced rib fracture identified. ? ? Dictated by: Elan Rouse M.D. on 01/30/2022 at 1:53 ? ? Approved by: Elan Rouse M.D. on 01/30/2022 at 1:54?? MDM Narrative Medical decision making narrative: This is a 36-year-old male with complaint of left chest pain. Patient is tender on the left side of the chest, chest xray is negative. Discharge Plan Departure Patient Disposition: Home Clinical Impression: Chest pain Activity Restrictions/Additional Instructions: Please follow-up if your symptoms are persisting. You can take ibuprofen up to 800 mg every 8 hours and/or Tylenol 1000 mg every 6 hours as needed. Please return for rapidly worsening chest pain, shortness of breath, passing out, coughing up blood, new swelling in her extremities or other new or concerning changes. Prescriptions: No Action ondansetron 4 mg tablet,disintegrating 4 mg PO Q6-8H PRN (Reason: nausea and vomiting) Qty: 30 0RF diclofenac sodium 75 mg tablet,delayed release (/EC) 75 mg PO BID Qty: 60 0RF Rx Instructions: APPT DUE W/PCP PRIOR TO END OF RX/FUTURE FILLS. PLEASE CALL TO SCHEDULE APPT. THANKS 07/04/21 naltrexone 50 mg tablet 50 mg PO DAILY bupropion HCl 150 mg tablet extended release 24 hr 300 mg PO diclofenac sodium 1 % gel 2 gram TOP QID PRN (Reason: pain and inflammation) Qty: 100 0RF Rx Instructions: use sparingly; apply to single elbow, knee, wrist or hand; for hand includes palm/fingers/back of hand lidocaine 5 % adhesive patch,medicated 1 patch TOP Q24H PRN (Reason: pain) Qty: 30 0RF Rx Instructions: leave on most painful area for up to 12 hrs benzonatate 100 mg capsule 100 mg PO TID PRN (Reason: cough) Qty: 14 0RF ketorolac 10 mg tablet 10 mg PO Q6H PRN (Reason: pain) Qty: 14 0RF lidocaine [Lidoderm] 5 % adhesive patch,medicated 1 patch TOP DAILY Qty: 15 0RF Rx Instructions: leave on most painful area for 12 hrs cyclobenzaprine 10 mg tablet 10 mg PO TID PRN (Reason: muscle spasm) Qty: 10 0RF ibuprofen 600 mg tablet 600 mg PO Q6H PRN (Reason: fever or pain) Qty: 24 0RF dicyclomine 10 mg capsule 10 mg PO TID PRN (Reason: cramping) Qty: 14 0RF Visit Report Forms: Patient Portal/API
[2022-01-30] MEDS: IBUPROFEN 400 MG TABLET 800 MG PO (04:31)
[2022-01-30 04:44] VITALS: BP 135/70; PULSE 80; RESP 20; O2SAT 99
== END 2022-01-30 04:30 | disposition home or self-care (01) ==
PROVIDERS: Emergency Provider Emergency Medicine
DX: R07.9 Chest pain, unspecified (principal)
CPT/HCPCS: 71101; 99283

== ENCOUNTER 2022-10-08 23:14 | Emergency (ER) | payer OTHER, MEDICAID, SELFPAY ==
[2022-10-08 23:17] VITALS: BP 166/97; PULSE 96; RESP 18; TEMP 36.4; O2SAT 99; BMI 31.2
--- NOTE | 2022-10-08 23:44 | ED_ITS ---
HPI - Back Pain/Injury General Chief Complaint: Back Pain/Injury Stated Complaint: back pain Time Seen by Provider: 10/08/22 23:31 Source: patient Mode of arrival: Ambulatory History of Present Illness HPI Narrative: Patient is a 37-year-old male who is here for evaluation of lower back pain. He states it has been going on for the past couple days. He states that he thought it started when he was at work when he lifted a heavy object in a very awkward way. He also thinks he was at a point when he was stepping out of his car and he stepped into a hole and then tweaked his back. Since that time he has had back pain. No urinary issues. No change in bowel habits. No fevers. He has been on diclofenac in the past which he states has helped his symptoms. He is other joint pain to include his hands in his left knee. He denies any fevers. Related Data Home Medications Medication Instructions Recorded Confirmed bupropion HCl 150 mg 24 hr tablet, 300 mg PO 03/22/20 09/07/20 extended release naltrexone 50 mg tablet 50 mg PO DAILY 03/22/20 09/07/20 Previous Rx's Medication Instructions Recorded diclofenac sodium 1 % topical gel 2 gram topical QID PRN pain and 07/03/19 inflammation #100 grams lidocaine 5 % topical patch 1 patch topical Q24H PRN pain #30 11/11/19 ea ondansetron 4 mg disintegrating 4 mg PO Q6-8H PRN nausea and 01/26/20 tablet vomiting #30 tabs cyclobenzaprine 10 mg tablet 10 mg PO TID PRN muscle spasm #10 03/20/20 tabs ibuprofen 600 mg tablet 600 mg PO Q6H PRN fever or pain 03/20/20 #24 tabs benzonatate 100 mg capsule 100 mg PO TID PRN cough #14 caps 08/31/20 ketorolac 10 mg tablet 10 mg PO Q6H PRN pain #14 tabs 01/10/21 lidocaine 5 % topical patch 1 patch topical DAILY #15 ea 01/10/21 (Lidoderm) dicyclomine 10 mg capsule 10 mg PO TID PRN cramping #14 caps 02/23/21 diclofenac sodium 75 mg 75 mg PO BID #60 tabs 07/04/21 tablet,delayed release cyclobenzaprine 10 mg tablet 10 mg PO TID PRN muscle spasm #12 10/09/22 tabs diclofenac sodium 75 mg 75 mg PO BID PRN pain #30 tabs 10/09/22 tablet,delayed release lidocaine 5 % topical patch 1 patch topical DAILY #15 ea 10/09/22 Allergies Allergy/AdvReac Type Severity Reaction Status Date / Time No Known Drug Allergies Allergy Verified 01/29/22 23:54 Review of Systems Constitutional Constitutional: Reports system reviewed and no additional complaints, except as documented Musculoskeletal Musculoskeletal: Reports system reviewed and no additional complaints, except as documented Integumentary/Breasts Skin/Breast: Reports system reviewed and no additional complaints, except as documented Neurologic Neurologic: Reports system reviewed and no additional complaints, except as documented Hematologic/Lymphatic On Anticoagulants: No Patient History Medical History Ankle pain, left Arthritis Constipation Depression Obesity (BMI 35.0-39.9 without comorbidity) PTSD (post-traumatic stress disorder) Substance abuse Social History Smoking Status: Current every day smoker Smoking Status: Current every day smoker tobacco type: vaping alcohol intake frequency: holidays/special occasions only Substance Use Type: marijuana and methamphetamine Exam Initial Vital Signs Initial Vital Signs: Vital Signs Temperature 97.5 F L 10/08/22 23:17 Pulse Rate 96 H 10/08/22 23:17 Respiratory Rate 18 10/08/22 23:17 Blood Pressure 166/97 H 10/08/22 23:17 Pulse Oximetry 99 10/08/22 23:17 Oxygen Delivery Method Room Air 10/08/22 23:17 Const General: disheveled HENMT Head: normal to inspection and normocephalic Resp Effort & Inspection: normal respiratory effort Cardio Rate: regular rate GI Inspection: non-distended Back/Spine/Pelvis Thoracic/Lumbar Spine: paraspinal tenderness and lumbar spinal tenderness Neuro General: patient alert, patient awake and moves all extremities Extrem General: capillary refill normal Course Orders Ordered: ED Orders 10/08/22 23:32 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 to 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 Stat 10/09/22 00:24 XR lumbar spine 2-3V Stat Discontinued Medications Hydrocodone Bitart/Acetaminophen (Hydrocodone/Acet 5/325 Tablet) 1 tab PO NOW ONE Stop: 08/24/23 23:45 Last Admin: 10/08/22 23:55 Dose: 1 tab Documented By: STARR Hydrocodone Bitart/Acetaminophen (Hydrocodone/Acet 5/325 Prepack) 1 bottle MISC SEEINSTR ONE Stop: 10/09/22 00:58 Last Admin: 10/09/22 01:09 Dose: 1 bottle Documented By: PERLITA Cyclobenzaprine HCl (Cyclobenzaprine 10 Mg Prepack) 1 bottle MISC SEEINSTR ONE Stop: 10/09/22 00:58 Last Admin: 10/09/22 01:09 Dose: 1 bottle Documented By: PERLITA Ketorolac Tromethamine (Ketorolac 30 Mg/Ml Vial) 30 mg IM NOW ONE Stop: 10/08/22 23:45 Last Admin: 10/08/22 23:56 Dose: 30 mg Documented By: STARR Prednisone (Prednisone 20 Mg Tablet) 20 mg PO NOW ONE Stop: 10/08/22 23:45 Last Admin: 10/08/22 23:55 Dose: 20 mg Documented By: STARR Vital Signs Vital signs: Vital Signs - 8 hr 10/08/22 23:17 10/09/22 00:51 10/09/22 00:53 Temperature 97.5 F L Pulse Rate 96 H 78 78 Respiratory Rate 18 Blood Pressure 166/97 H 130/75 Pulse Oximetry 99 98 98 Oxygen Delivery Method Room Air 10/09/22 00:53 Temperature Pulse Rate Respiratory Rate 16 Blood Pressure 130/75 Pulse Oximetry Oxygen Delivery Method [facility] - Back Pain/Injury Imaging Data Lumbar spine x-ray: Radiologist's Impression: PROCEDURE:? XR LUMBAR SPINE 2-3V ? INDICATIONS:? Lower back pain after stepping into a hole ? TECHNIQUE:? 3 views of the lumbar spine were acquired.? ? COMPARISON:? [facility], CT, CT ABDOMEN PELVIS W CON, 02/23/2021, 19:12. ? FINDINGS:? ? Bones:? 5 [id number] vertebrae are present.? There is normal bony alignment.? Trace degenerative changes are present at L3-4 including mild osteophytosis.? No vertebral body compression fractures.? Mild anterior wedging at T12 is unchanged from the CT dated February 23, 2021. No suspicious bony lesions.? ? Soft tissues:? Overlying bowel gas pattern is normal.? No suspicious soft tissue calcifications.? ? ? IMPRESSION:? Mild degenerative change.? No compression deformities. [facility] Narrative Medical decision making narrative: X-ray show no acute pathology. He is symptoms are consistent with musculoskeletal etiology. I have low suspicion for abscess or hematoma. He is afebrile. He is no lower extremity neurologic symptoms. Will treat conservatively. He stated that diclofenac has worked very well for him in the past so he was given a prescription for this. We also discussed muscle relaxers he was advised that he needs to make contact with the primary doctor for a follow-up. He expressed understanding. Discharge Plan Departure Patient Disposition: Home Clinical Impression: Strain of lumbar region Instructions: DI for Low Back Pain Activity Restrictions/Additional Instructions: It is important that you try to stay as active as possible. You can try conservative measures such as heat and ice and massage. A prescription for diclofenac and lidocaine patches for sent to [facility] in [place]. Contact your primary doctor for a follow-up Prescriptions: New diclofenac sodium 75 mg tablet,delayed release (DR/EC) 75 mg PO BID PRN (Reason: pain) Qty: 30 0RF lidocaine 5 % adhesive patch,medicated 1 patch topical DAILY Qty: 15 0RF Rx Instructions: leave on most painful area for up to 12 hrs cyclobenzaprine 10 mg tablet 10 mg PO TID PRN (Reason: muscle spasm) Qty: 12 0RF No Action ondansetron 4 mg tablet,disintegrating 4 mg PO Q6-8H PRN (Reason: nausea and vomiting) Qty: 30 0RF diclofenac sodium 75 mg tablet,delayed release (DR/EC) 75 mg PO BID Qty: 60 0RF Rx Instructions: APPT DUE W/PCP PRIOR TO END OF RX/FUTURE FILLS. PLEASE CALL TO SCHEDULE APPT. THANKS 07/04/21 naltrexone 50 mg tablet 50 mg PO DAILY bupropion HCl 150 mg tablet extended release 24 hr 300 mg PO diclofenac sodium 1 % gel 2 gram TOP QID PRN (Reason: pain and inflammation) Qty: 100 0RF Rx Instructions: use sparingly; apply to single elbow, knee, wrist or hand; for hand includes palm/fingers/back of hand lidocaine 5 % adhesive patch,medicated 1 patch TOP Q24H PRN (Reason: pain) Qty: 30 0RF Rx Instructions: leave on most painful area for up to 12 hrs benzonatate 100 mg capsule 100 mg PO TID PRN (Reason: cough) Qty: 14 0RF ketorolac 10 mg tablet 10 mg PO Q6H PRN (Reason: pain) Qty: 14 0RF lidocaine [Lidoderm] 5 % adhesive patch,medicated 1 patch TOP DAILY Qty: 15 0RF Rx Instructions: leave on most painful area for 12 hrs cyclobenzaprine 10 mg tablet 10 mg PO TID PRN (Reason: muscle spasm) Qty: 10 0RF ibuprofen 600 mg tablet 600 mg PO Q6H PRN (Reason: fever or pain) Qty: 24 0RF dicyclomine 10 mg capsule 10 mg PO TID PRN (Reason: cramping) Qty: 14 0RF Stand Alone Forms: Patient Portal/API
[2022-10-08] MEDS: predniSONE 20 MG TABLET PO (23:55)
[2022-10-08] MEDS: HYDROCODONE/ACET 5/325 TABLET 1 TAB PO (23:55)
[2022-10-08] MEDS: KETOROLAC 30 MG/ML VIAL IM (23:56)
--- NOTE | 2022-10-09 00:24 | DI.RAD.S_ITS ---
PROCEDURE: XR LUMBAR SPINE 2-3V INDICATIONS: Lower back pain after stepping into a hole TECHNIQUE: 3 views of the lumbar spine were acquired. COMPARISON: [facility], CT, CT ABDOMEN PELVIS W CON, 02/23/2021, 19:12. FINDINGS: Bones: 5 [id number] vertebrae are present. There is normal bony alignment. Trace degenerative changes are present at L3-4 including mild osteophytosis. No vertebral body compression fractures. Mild anterior wedging at T12 is unchanged from the CT dated February 23, 2021. No suspicious bony lesions. Soft tissues: Overlying bowel gas pattern is normal. No suspicious soft tissue calcifications. IMPRESSION: Mild degenerative change. No compression deformities. Dictated by: Crystal Linda M.D. on 10/09/2022 at 0:48 Approved by: Crystal Linda M.D. on 10/09/2022 at 0:50
[2022-10-09 00:51] VITALS: BP 130/75; PULSE 78; O2SAT 98
[2022-10-09 00:53] VITALS: BP 130/75; PULSE 78; RESP 16; O2SAT 98
[2022-10-09] MEDS: CYCLOBENZAPRINE 10 MG PREPACK 1 BOTTLE MISC (01:09)
[2022-10-09] MEDS: HYDROCODONE/ACET 5/325 PREPACK 1 BOTTLE MISC (01:09)
== END 2022-10-09 01:14 | disposition home or self-care (01) ==
PROVIDERS: Emergency Provider Emergency Medicine
DX: S39.012A Strain of muscle, fascia and tendon of lower back, initial encounter (principal); X58.XXXA Exposure to other specified factors, initial encounter
CPT/HCPCS: 72100; 96372; 99283; J1885